=== PATIENT | female | born 1965 | race Caucasian/White ===

== ENCOUNTER 2017-09-04 17:51 | Emergency (ER) | payer MEDICARE, MEDICAID ==
[~2017-09-04] VITALS: Ht 175.3 cm; Wt 63.6 kg
[~2017-09-04 17:51] MED LIST: EYE15DRO EACHEYE; LOTE5DRO4 EACHEYE
[2017-09-04] MEDS ORDERED: normal saline 1000ML IV soln IVB ONE (19:50)
[2017-09-04 20:12] LABS: BASOPHILS % (AUTO) 0.7 % (0-1); EOSINOPHILS # (AUTO) 0.4 X10'3 (0-0.9); EOSINOPHILS % (AUTO) 6.2 % (0-6); HEMATOCRIT 34.8 % (35.0-45.0); HEMOGLOBIN 11.7 g/dl (12.0-16.0); LYMPHOCYTES # (AUTO) 1.9 X10'3 (1.1-4.8); LYMPHOCYTES % (AUTO) 33.2 % (21-51); MEAN CORPUSCULAR HEMOGLOBIN 30.3 PG (27.0-31.0); MEAN CORPUSCULAR HGB CONC 33.6 % (33.0-36.5); MEAN CORPUSCULAR VOLUME 90.4 FL (78-98); MEAN PLATELET VOLUME 9.1 FL (7.4-10.4); MONOCYTES # (AUTO) 0.4 X10'3 (0-0.9); MONOCYTES % (AUTO) 6.5 % (2-12); NEUTROPHILS # (AUTO) 3.1 X10'3 (1.8-7.7); NEUTROPHILS % (AUTO) 53.4 % (42-75); PLATELET COUNT 294 X10'3 (140-440); RED BLOOD COUNT 3.84 X10'6 (4.20-5.60); RED CELL DISTRIBUTION WIDTH 13.4 % (11.5-14.5); WHITE BLOOD COUNT 5.8 X10'3 (4.5-11.0)
[2017-09-04 20:25] LABS: ALANINE AMINOTRANSFERASE 60 U/L (12-78); ALBUMIN/GLOBULIN RATIO 0.9 (1.1-1.5); ALKALINE PHOSPHATASE 87 IU/L (46-116); ANION GAP 6 (8-16); ASPARTATE AMINO TRANSFERASE 60 U/L (10-37); BILIRUBIN,TOTAL 0.2 MG/DL (0.1-1.0); BLOOD UREA NITROGEN 14 MG/DL (7-18); BUN/CREATININE RATIO 17.1 (6.6-38.0); CHLORIDE 108 MMOL/L (99-107); CREATININE 0.82 MG/DL (0.40-0.90); GLUCOSE 104 MG/DL (70-104); LIPASE 56 U/L (73-393); POTASSIUM 4.1 MMOL/L (3.5-5.1); SODIUM 144 MMOL/L (135-145); TOTAL CARBON DIOXIDE 30.4 MMOL/L (24-32); TOTAL PROTEIN 6.3 G/DL (6.4-8.2); eGFR 73 ML/MIN
[2017-09-04 20:35] LABS: CLARITY,URINE CLOUDY (Clear); COLOR,URINE YELLOW (Yellow); GLUCOSE, URINE NEGATIVE (Neg); KETONES,URINE NEGATIVE (Neg); LEUKOCYTE ESTERASE ,URINE LARGE (Neg); NITRITES, URINE POSITIVE (Neg); OCCULT BLOOD,URINE SMALL (Neg); PROTEIN,URINE NEGATIVE (Neg)
[2017-09-04 20:38] LABS: UA COLLECTION TYPE CLN CATCH MIDSTREAM
[2017-09-04 20:44] LABS: SQUAMOUS EPITHELIAL CELL,UR MANY /LPF (FEW)
[2017-09-04 20:46] LABS: BACTERIA,URINE 2+ /HPF (Neg); RBC,URINE 0-2 /HPF (0-2)
[2017-09-04] MEDS ORDERED: BISA10SU60 RC (21:57)
[2017-09-04] MEDS ORDERED: DOCU-28 PO (21:57)
[2017-09-04] MEDS ORDERED: MAGN296S50 PO (21:57)
[2017-09-04 23:58] LABS: CLARITY,URINE Clear (Clear); COLOR,URINE Dark Yellow (Yellow); GLUCOSE, URINE Negative (Neg); KETONES,URINE Negative (Neg); LEUKOCYTE ESTERASE ,URINE Negative (Neg); NITRITES, URINE Negative (Neg); OCCULT BLOOD,URINE Negative (Neg); PROTEIN,URINE Negative (Neg)
[2017-09-04] MEDS ORDERED: MUPI1OIN5 TOP (23:59)
[2017-09-05 00:07] LABS: UA COLLECTION TYPE FOLEY CATH
[2017-09-05 00:21] VITALS: BP 113/83
== END 2017-09-05 00:23 | disposition home or self-care (01) ==
LOC: ER 17:52
DX: N39.0 Urinary tract infection, site not specified (principal); F32.9 Major depressive disorder, single episode, unspecified; K59.00 Constipation, unspecified
CPT/HCPCS: 36415; 51702; 74176; 80053; 81001; 81003; 83690; 85025; 99285; A4315; J7030

== ENCOUNTER 2017-09-06 09:48 | Emergency (ER) | payer MEDICARE, MEDICAID ==
[~2017-09-06] VITALS: Ht 175.3 cm; Wt 63.0 kg
[~2017-09-06 09:48] MED LIST changes: +BISA10SU60 RC; +DOCU-28 PO; +MAGN296S50 PO; +MUPI1OIN5 TOP
[2017-09-06 12:38] LABS: CLARITY,URINE CLEAR (Clear); COLOR,URINE YELLOW (Yellow); GLUCOSE, URINE NEGATIVE (Neg); KETONES,URINE NEGATIVE (Neg); LEUKOCYTE ESTERASE ,URINE NEGATIVE (Neg); NITRITES, URINE NEGATIVE (Neg); OCCULT BLOOD,URINE MODERATE (Neg); PROTEIN,URINE NEGATIVE (Neg); UROBILINOGEN,URINE 0.2 E.U/dL (0.2-1.0)
[2017-09-06 12:46] LABS: UA COLLECTION TYPE FOLEY CATH
[2017-09-06 12:50] LABS: RBC,URINE 20-50 /HPF (0-2); WBC,URINE 0-4 /HPF (0-4)
[2017-09-06 12:51] LABS: BACTERIA,URINE NONE SEEN /HPF (Neg); SQUAMOUS EPITHELIAL CELL,UR NONE SEEN /LPF (FEW)
[2017-09-06 13:36] VITALS: BP 109/74
== END 2017-09-06 13:37 | disposition home or self-care (01) ==
LOC: ER 09:49
DX: R31.9 Hematuria, unspecified (principal); G89.29 Other chronic pain; Z79.899 Other long term (current) drug therapy; Z88.5 Allergy status to narcotic agent; Z88.0 Allergy status to penicillin
CPT/HCPCS: 81001; 99284; A6449

== ENCOUNTER 2017-10-11 06:55 | Emergency (ER) | payer MEDICARE, MEDICAID ==
[~2017-10-11] VITALS: Ht 175.3 cm; Wt 52.7 kg
[2017-10-11 09:39] VITALS: BP 96/65
== END 2017-10-11 09:41 | disposition home or self-care (01) ==
LOC: ER 06:56
DX: S90.812A Abrasion, left foot, initial encounter (principal); L98.499 Non-pressure chronic ulcer of skin of other sites with unspecified severity; G89.29 Other chronic pain; Z88.5 Allergy status to narcotic agent; X58.XXXA Exposure to other specified factors, initial encounter; Y93.89 Activity, other specified; Y92.89 Other specified places as the place of occurrence of the external cause; Y99.8 Other external cause status
CPT/HCPCS: 99281

== ENCOUNTER 2018-09-11 10:53 | Emergency (ER) | payer MEDICARE, MEDICAID ==
[~2018-09-11] VITALS: Ht 177.8 cm; Wt 61.8 kg
[2018-09-11 12:55] LABS: BASOPHILS % (AUTO) 0.5 % (0-1); EOSINOPHILS # (AUTO) 0.2 X10'3 (0-0.9); EOSINOPHILS % (AUTO) 2.8 % (0-6); HEMATOCRIT 39.7 % (35.0-45.0); HEMOGLOBIN 13.3 g/dl (12.0-16.0); LYMPHOCYTES # (AUTO) 1.9 X10'3 (1.1-4.8); LYMPHOCYTES % (AUTO) 30.5 % (21-51); MEAN CORPUSCULAR HEMOGLOBIN 29.9 PG (27.0-31.0); MEAN CORPUSCULAR HGB CONC 33.4 g/dL (33.0-36.5); MEAN CORPUSCULAR VOLUME 89.5 FL (78-98); MEAN PLATELET VOLUME 9.7 FL (7.4-10.4); MONOCYTES # (AUTO) 0.2 X10'3 (0-0.9); MONOCYTES % (AUTO) 3.8 % (2-12); NEUTROPHILS # (AUTO) 3.8 X10'3 (1.8-7.7); NEUTROPHILS % (AUTO) 62.4 % (42-75); PLATELET COUNT 294 X10'3 (140-440); RED BLOOD COUNT 4.44 X10'6 (4.20-5.60); RED CELL DISTRIBUTION WIDTH 14.7 % (11.5-14.5); WHITE BLOOD COUNT 6.1 X10'3 (4.5-11.0)
[2018-09-11 13:20] LABS: ALANINE AMINOTRANSFERASE 36 U/L (12-78); ALBUMIN 3.7 G/DL (3.4-5.0); ALBUMIN/GLOBULIN RATIO 1.1 (1.1-1.5); ALKALINE PHOSPHATASE 59 IU/L (46-116); ANION GAP 7 (8-16); ASPARTATE AMINO TRANSFERASE 23 U/L (10-37); BILIRUBIN,TOTAL 0.5 MG/DL (0.1-1.0); BLOOD UREA NITROGEN 25 MG/DL (7-18); BUN/CREATININE RATIO 30.1 (6.6-38.0); CHLORIDE 105 MMOL/L (99-107); CREATININE 0.83 MG/DL (0.40-0.90); GLUCOSE 92 MG/DL (70-104); POTASSIUM 4.4 MMOL/L (3.5-5.1); SODIUM 141 MMOL/L (135-145); TOTAL CARBON DIOXIDE 28.7 MMOL/L (24-32); TOTAL PROTEIN 7.1 G/DL (6.4-8.2); eGFR 72 ML/MIN
[2018-09-11 13:25] LABS: ETHANOL < 0.010 GM/DL (0.0-0.010)
[2018-09-11 14:21] LABS: URINE HCG NEGATIVE (NEG)
[2018-09-11 14:28] LABS: CLARITY,URINE CLEAR (Clear); COLOR,URINE YELLOW (Yellow); GLUCOSE, URINE NEGATIVE (Neg); KETONES,URINE TRACE mg/dl (Neg); LEUKOCYTE ESTERASE ,URINE NEGATIVE (Neg); NITRITES, URINE NEGATIVE (Neg); OCCULT BLOOD,URINE NEGATIVE (Neg); PROTEIN,URINE NEGATIVE (Neg); UROBILINOGEN,URINE 0.2 E.U/dL (0.2-1.0)
[2018-09-11 14:33] LABS: URINE AMPHETAMINE SCREEN NEGATIVE (Neg); URINE BARBITUATE SCREEN NEGATIVE (Neg); URINE BENZODIAZEPINES SCREEN POSITIVE (Neg); URINE CANNABINOID SCREEN NEGATIVE (Neg); URINE COCAINE SCREEN NEGATIVE (Neg); URINE METHADONE SCREEN NEGATIVE (Neg); URINE OPIATE SCREEN NEGATIVE (Neg); URINE PHENCYCLIDINE SCREEN NEGATIVE (Neg)
[2018-09-11 14:38] LABS: UA COLLECTION TYPE CLN CATCH MIDSTREAM
[2018-09-11] MEDS ORDERED: CYCL-1 PO (15:08)
[2018-09-11] MEDS ORDERED: PREG200C PO (15:08)
[2018-09-11] MEDS ORDERED: TRAZ-219 PO (15:08)
[2018-09-11] MEDS ORDERED: DULR RC (15:08)
[2018-09-11] MEDS ORDERED: LEVO75TA PO (15:08)
[2018-09-11] MEDS ORDERED: NALO25TA PO (15:08)
[2018-09-11] MEDS ORDERED: LORA-512 PO (15:08)
[2018-09-11] MEDS ORDERED: CLON-527 PO (15:08)
[2018-09-11] MEDS ORDERED: ATOM80CA3 PO (15:08)
[2018-09-11] MEDS ORDERED: SENN25TA10 PO (15:08)
[2018-09-11] MEDS ORDERED: DICL75TA6 PO (15:08)
[2018-09-11] MEDS ORDERED: NORT50CA PO (15:08)
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
[2018-09-11] MEDS ORDERED: CLON2TAB10 PO (15:19)
[2018-09-11] MEDS ORDERED: BUPR900F3 PO (15:19)
[2018-09-11] MEDS ORDERED: SENNOSIDES PO PRN (16:05)
[2018-09-11] MEDS ORDERED: cyclobenzaprine 10mg tablet PO PRN (16:05)
[2018-09-11] MEDS ORDERED: bisacodyl 10mg suppository rectal RC PRN (16:05)
[2018-09-11] MEDS ORDERED: TRAZODONE HCL PO PRN (16:05)
[2018-09-11] MEDS ORDERED: non-formulary drug (Clonazepam 1 TAB) PO PRN (16:05)
[2018-09-11] MEDS ORDERED: traZODone 50mg tablet PO PRN (16:40)
[2018-09-11] MEDS ORDERED: clonazePAM 1mg tablet PO PRN (16:45)
[2018-09-11] MEDS ORDERED: sennosides 8.6mg tablet PO PRN (16:45)
--- NOTE | 2018-09-11 17:40 | NUR ---
Patient is calm with significant other, Trey, at her side. Patient c/o pain to her head and she believes this is because she usually takes her pain med in the morning then at 1600. Continue to monitor.
--- NOTE | 2018-09-11 19:00 | NUR ---
Pt. in bed participating in Telepsych at this time, calm and cooperative. Significant other at bedside.
--- NOTE | 2018-09-11 19:30 | NUR ---
Pt's significant other is Medical POA: Trey Reynolds [phone]
[2018-09-11] MEDS ORDERED: non-formulary drug (Diclofenac Sodium 1 TAB) PO SCH (20:00)
[2018-09-11] MEDS ORDERED: non-formulary drug (Pregabalin (Lyrica) 1 CAP) PO SCH (20:00)
[2018-09-11] MEDS: BUPRENORPHINE PO SCH (20:00)
[2018-09-11] MEDS ORDERED: BUPRENORPHINE HCL PO SCH (20:00)
--- NOTE | 2018-09-11 20:31 | NUR ---
Packet sent to [facility].
[2018-09-11] MEDS ORDERED: non-formulary drug (Trazodone HCl 3 TAB) PO SCH (21:00)
[2018-09-11] MEDS ORDERED: nortriptyline 25mg capsule PO SCH (21:00)
[2018-09-11] MEDS ORDERED: traZODone 150mg tablet PO SCH (21:00)
--- NOTE | 2018-09-11 21:00 | NUR ---
Pt. reports depression and anxiety and states she feels like she would hurt herself if at home, however she is feeling safe here and she denies S/I plan at this time. Pt. also reports she was a previous patient of Dr. Bazan and had been stable on her medications X10 years, however her care was then transferred to Dr. Tubbs and medications were changed and she become unstable. Pt's therapist Megha Coy at [facility] ([phone]) had recently recommended [facility] to her. [facility] charge nurse alerted of this and pt. voices contentment. Resting comfortably at this time, rr even and unlabored.
--- NOTE | 2018-09-11 21:00 | NUR ---
Telepsych competed and presented to Dr. Nguyen. Telepsych reccommends pt. be placed on a 5150 inpatient hold, also obtain a serum Nortryptaline Level. Per Dr. Nguyen, we will not obtain a Nortryptaline Level at this time and we will wait for placement.
[2018-09-11] MEDS: pregabalin 25mg capsule PO SCH (21:18)
--- NOTE | 2018-09-11 21:30 | NUR ---
Per PharmacistLuke, patients medication Belbuca is unavailable at [facility]. Pt. will need to have brought in from home, she voices understanding.
--- NOTE | 2018-09-11 23:00 | NUR ---
Pt. laying on her back sleeping, HOB raised, rr even and unlaobored
--- NOTE | 2018-09-12 01:00 | NUR ---
Pt. continues to sleep, laying on rt. side at this time.
--- NOTE | 2018-09-12 01:05 | NUR ---
Pt. up to use the BR, walks without cane independently without difficulty. Cane taken from bedside per safety precautions, baged and labeled with pt. name for safekeeping, and stored with pt. belongings.
--- NOTE | 2018-09-12 03:31 | NUR ---
Pt. sleeping on her back, knees elevated, rr even and unlabored
--- NOTE | 2018-09-12 04:02 | NUR ---
Home Medications:Atomoxetine, Naloxegol Oxalate, and Buprenorphine unavailable per [facility]. Will endorse to AM shift to see if pt's significant other can pickling tank operator from [facility] and bring to hospital.
--- NOTE | 2018-09-12 05:00 | NUR ---
Pt. remains asleep, laying on left side, appears to be resting comfortably
[2018-09-12 05:30] VITALS: BP 95/55
[2018-09-12] MEDS ORDERED: MOVANTIK 25 MG PO SCH (08:00)
[2018-09-12] MEDS ORDERED: ATOMOXETINE HCL 80 MG PO SCH (08:00)
[2018-09-12] MEDS ORDERED: non-formulary drug (Naloxegol Oxalate (Movantik) 1 TAB) PO SCH (08:00)
[2018-09-12] MEDS ORDERED: ATOMOXETINE HCL PO SCH (08:00)
[2018-09-12] MEDS ORDERED: levoTHYROXINE 75mcg tablet PO SCH (08:00)
[2018-09-12] MEDS ORDERED: loratadine 10mg tablet PO SCH (08:00)
[2018-09-12] MEDS ORDERED: non-formulary drug (Loratadine* (Alavert*) 1 TAB) PO SCH (08:00)
[2018-09-12] MEDS: pregabalin 25mg capsule PO SCH (08:01)
--- NOTE | 2018-09-12 08:38 | NUR ---
patient's came in to vist patient. He states he will look in the truck to see if he has the atomoxetine and naloxegol. He states that she has not started her belbuca due to it not being available at the pharmacy. He has also meghana in her advance directive and POA. Copies will be made and placed in the chart.
--- NOTE | 2018-09-12 09:25 | NUR ---
Bharti from [facility] is evaluating patient at bedside
--- NOTE | 2018-09-12 10:35 | NUR ---
Patient stating she has been unable to urinate. RN performed a bladder scan. RN received verbal order from Dr Choi for Aldrich Catheter. RN inserted 16 Fr with initial of 1500 mls out. Patient getting relief. Continue to monitor
--- NOTE | 2018-09-12 12:35 | NUR ---
Patient is sleeping supine, no distress observed. Continue to monitor.
[2018-09-12] MEDS: BUPRENORPHINE PO SCH (13:14)
--- NOTE | 2018-09-12 16:13 | NUR ---
Patient awake, alert, no distress observed. Patient's significant other at bedside (Trey). Continue to monitor.
[2018-09-12 17:41] LABS: CLARITY,URINE CLEAR (Clear); COLOR,URINE YELLOW (Yellow); GLUCOSE, URINE NEGATIVE (Neg); KETONES,URINE NEGATIVE (Neg); LEUKOCYTE ESTERASE ,URINE SMALL (Neg); NITRITES, URINE NEGATIVE (Neg); OCCULT BLOOD,URINE LARGE (Neg); PROTEIN,URINE 30 mg/dl (Neg)
[2018-09-12 17:42] LABS: UA COLLECTION TYPE CLN CATCH MIDSTREAM
[2018-09-12 17:46] LABS: BACTERIA,URINE FEW /HPF (Neg); MUCUS STRANDS FEW /LPF (Neg); RBC,URINE 20-50 /HPF (0-2); SQUAMOUS EPITHELIAL CELL,UR FEW /LPF (FEW)
[2018-09-12] MEDS ORDERED: DOXYCYCLINE 100MG CAPSULE PO SCH (20:00)
[2018-09-13] MEDS ORDERED: doxycycline PO (11:14)
[2018-09-13] MEDS ORDERED: CRIS60OI TOP (11:14)
== END 2018-09-12 17:40 | disposition home or self-care (01) ==
LOC: ER 10:53
DX: R45.851 Suicidal ideations (principal); F32.9 Major depressive disorder, single episode, unspecified; G89.29 Other chronic pain; Z88.5 Allergy status to narcotic agent; Z88.6 Allergy status to analgesic agent; Z79.899 Other long term (current) drug therapy
CPT/HCPCS: 36415; 80053; 80305; 80320; 81001; 81003; 81025; 84443; 85025; 87088; 99285

== ENCOUNTER 2018-09-12 16:20 | Inpatient (IN) | payer MEDICARE, MEDICAID ==
[~2018-09-12] VITALS: Ht 177.8 cm; Wt 63.5 kg
[~2018-09-12 16:20] MED LIST changes: +ATOM80CA3 PO; -BISA10SU60 RC; +BUPR900F3 PO; +CLON2TAB10 PO; +CYCL-1 PO; +DICL75TA6 PO; -DOCU-28 PO; +DULR RC; -EYE15DRO EACHEYE; +LEVO75TA PO; +LORA-512 PO; -LOTE5DRO4 EACHEYE; -MAGN296S50 PO; -MUPI1OIN5 TOP; +NALO25TA PO; +NORT50CA PO; +PREG200C PO; +SENN25TA10 PO; +TRAZ-219 PO
--- NOTE | 2018-09-12 18:02 | NUR ---
Admit note: Pt admitted by Dr Helms for depression and SI at 1750. Pt depressed about her mother suicide 3.5 years and her father last year. Pt has a home with her . Pts inventory completed in overflow. Pt has history of chronic back pain, stimulator in her back, hypothyroid,depression, constipation, insomnia. Pt oriented to the unit. Pt has mcmahon inserted due to urine retention. Pts given the visiting hours and will visit tomorrow.
[2018-09-12] MEDS ORDERED: acetaminophen 325mg tablet PO PRN (18:15)
[2018-09-12] MEDS ORDERED: magnesium hydroxide 30ml (MOM) UD suspension PO PRN (18:15)
[2018-09-12] MEDS ORDERED: mag hydrox/Alum hydrox/simeth 30ml oral suspension PO PRN (18:15)
[2018-09-12] MEDS ORDERED: tuberculin, purif. prot. deriv. 5 units/0.1ml ID ONE (18:15)
[2018-09-12 20:10] VITALS: BP 119/56
[2018-09-12] MEDS ORDERED: traZODone 50mg tablet PO PRN (20:20)
[2018-09-12] MEDS ORDERED: bisacodyl 10mg suppository rectal RC PRN (20:25)
[2018-09-12] MEDS ORDERED: clonazePAM 1mg tablet PO PRN (20:30)
[2018-09-12] MEDS ORDERED: nortriptyline 25mg capsule PO SCH (21:00)
[2018-09-12] MEDS ORDERED: pregabalin 75mg capsule PO SCH ×2 (21:00→21:52)
[2018-09-12] MEDS: buprenorphine/naloxone 8mg/2mg SL tablet SL SCH (21:45)
[2018-09-12] MEDS: traZODone 150mg tablet PO SCH (21:46)
--- NOTE | 2018-09-12 22:32 | NUR ---
SHADING PAINTER NOTE: LEGAL HOLD: 5150 for DTS. Report received from nurse with use of SBAR: New admit. Diagnosis/presenting symptoms: Suicidal Ideation/Long hx depression and previous ECT/Multiple inpatient psych admits. ASSESSMENT: What has happened this shift: Client admitted at beginning of shift, from the ED, for SI. Client reports that she first became depressed at age 10 yo but does not remember what triggered those feelings. Reports that she was first admitted for mental health treatment as a teenager. Client has had multiple inpatient psych admits for depression and SI. Reports prior ECT. Client was tearful and gave rambling answers to questions. Reports hx of catatonia/psychosis. Clients mother committed suicide 3.5 years ago. Father recently from CAD. S/I, H/I: SI w/ no plan. A/VH: Reports, "I see music and taste sound." Sleep: Difficulty falling asleep. ADL's: Independent Group attendance: N/A Were meds taken: Med compliant. Any med S/E: None reported. MENTAL STATUS EXAM: Appearance: Client wear a hat and coat in bed. Stated, "I'm cold." Temp in room was increased. Eye contact: Direct. Behavior: Tearful. Speech: Slurred, halting, low volume. Mood: Depressed. Affect: Depressed. Thought process: Circumstantiality. Gives long, rambling answers with frequent detours. Insight: Poor. Judgment: Poor. INTERVENTIONS: PRN's used: N/A Therapeutic interventions: 1:1 support. Restraints/seclusion/emergency medication: N/A. Justification of Continued Inpatient Treatment: Client is depressed and feels that she needs a medication adjustment.
[2018-09-12] MEDS: pregabalin 25mg capsule PO SCH (22:39)
[2018-09-13] MEDS: levoTHYROXINE 75mcg tablet PO SCH (07:36)
[2018-09-13 07:47] VITALS: BP 127/55
[2018-09-13 07:49] LABS: CHOL/HDL RATIO 2.9 (0.00-4.99); CHOLESTEROL 203 MG/DL (0-200); HDL CHOLESTEROL 71 MG/DL (35-60); LDL CHOLESTEROL 112 MG/DL (50-100); TRIGLYCERIDES 92 MG/DL (20-135)
[2018-09-13] MEDS: BELBUCA PO SCH ×2 (08:00→20:00)
[2018-09-13] MEDS: pregabalin 25mg capsule PO SCH (08:00)
[2018-09-13] MEDS: loratadine 10mg tablet PO SCH (08:29)
[2018-09-13] MEDS: buprenorphine/naloxone 8mg/2mg SL tablet SL SCH ×2 (08:29→20:41)
[2018-09-13] MEDS: ATOMOXETINE 80 MG PO SCH (08:56)
[2018-09-13] MEDS: MOVANTIK 25 MG PO SCH (08:57)
[2018-09-13] MEDS: cyclobenzaprine 10mg tablet PO PRN (09:14)
[2018-09-13] MEDS ORDERED: pneumococcal 23-VAL P-sac vacc 25 mcg/0.5ml vial IMVAC ONE (10:00)
[2018-09-13] MEDS ORDERED: FLU VACC QUAD 2018(5 YR UP)/PF 60 MCG/0.5 ML SYRINGE IM ONE (10:00)
[2018-09-13] MEDS ORDERED: CRIS60OI TOP (11:14)
[2018-09-13] MEDS ORDERED: doxycycline PO (11:14)
[2018-09-13] MEDS: CRISABOROLE TOP SCH ×2 (12:39→20:41)
[2018-09-13] MEDS: sennosides 8.6mg tablet PO PRN (12:42)
[2018-09-13] MEDS: DOXYCYCLINE 100MG CAPSULE PO SCH ×3 (14:32→20:49)
[2018-09-13] MEDS: acetaminophen 325mg tablet PO PRN (15:31)
--- NOTE | 2018-09-13 17:54 | NUR ---
RN PROGRESS NOTE: LAUREN LEGAL HOLD: 5150 for DTS. Report received from nurse with use of SBAR: New admit. Diagnosis/presenting symptoms: Suicidal Ideation/Long hx depression and previous ECT/Multiple inpatient psych admits. ASSESSMENT: What has happened this shift: Pt. Seen in day room at beginning of shift. Pt.s Elinor VELAZCOd. Pt. Reports residual soreness from catheter. Pt. Urinated at 10am. Suboxone is substitute for her Belbuca. Was taking very high dose of it, 900mg BID Pt. Has been off of Belbuca for 6 days. Doesnt test postive for opiates. Have to test specificially for it. Pt. Recieved Flexaril 10mg for back spasms @ 0900. Pt. Recieved Senkot 25.8 for Constipation. No BM since 09/11. Pt.s lyrica changed to only HS. Trey doesnt want her to call him , but omar. Live together. Met 5 years ago. Flu and pneumonia vaccination administered. Ear ointment Eucrisa started and applied. Bela emptied her bladder 1pm. Given Tylenol 650 mg for head ache. Pt. Reports she still has a bad headache 02/04. Doxycycline not given per pharmacy order because medication wasnt given until today at 1pm. Lyrica got changed and [employer] wants to remind you every time you open EMAR Pt. States, Jessica been so depressed and my meds arent working and Im tired of being confused. Im a risk to myself. I was vaping a lot and I quit because Trey asked me to. I was doing it in the house. The nicotine is relaxing. It take care of the anxiety. That was just recently. Jessica been depressed for a long time. The last couple years. I didnt realize it until Trey told me I hadnt left the house. Im suicidal. My sister drank herself to . Mom always told me that weak people kill themselves, and then she killed herself and that opened a door to me that wasnt previously an option. Mom killed herself 3.5 years ago My plan to commit suicide is to take [place] and [place] my [place]s and fall asleep and . Pt.reports she thinks she is on the Autism spectrum. Pt. Reports managing her pain by taking breaks and exercise. Reports hx of catatonia/psychosis. Father recently from CAD in the last 3 years. Pt. Reports her father had a trust fund for her that he put her brother in charge of and her Trey helped her sidra. S/I, H/I: SI w/ no plan. A/VH: Reports, "I see music and taste sound." Sleep: Difficulty falling asleep. ADL's: Independent Group attendance: N/A Were meds taken: Med compliant. Any med S/E: None reported. MENTAL STATUS EXAM: Appearance: Pt. Presents clean and neatly dressed. Eye contact: Direct. Behavior: Tearful at times Speech: slow Mood: Depressed. Affect: Depressed. Thought process: Tangential. Gives long, rambling answers with frequent detours. Insight: Poor. Judgment: Poor. INTERVENTIONS: PRN's used: Flexeril 10mg for back spasms. Senekot 25.8mg for constipation Tylenol 650mg prn for pain Therapeutic interventions: Administered vaccinations and PRN medications, 1:1 active listening and therapeutic communication; maintained a safe and therapeutic environment, encouraged ADLs, reinforced reality as needed, education regarding medication, maintained q 15 min safety checks. Restraints/seclusion/emergency medication: N/A. Justification of Continued Inpatient Treatment: Client has SI with a plan.
[2018-09-13 20:00] VITALS: BP 96/38
[2018-09-13] MEDS: traZODone 150mg tablet PO SCH (20:41)
[2018-09-13] MEDS ORDERED: pregabalin 25mg capsule PO SCH (21:00)
[2018-09-13] MEDS ORDERED: pregabalin 75mg capsule PO SCH (21:00)
[2018-09-13] MEDS ORDERED: nortriptyline 25mg capsule PO SCH (21:00)
--- NOTE | 2018-09-14 04:08 | NUR ---
RN PROGRESS NOTE: LEGAL HOLD: 5150. Involuntary status for DTS. Report received from nurse with use of SBAR: Ahsan ABRLOW. Why are they here: The patient comes to [facility] with increasing thoughts of suicide. She reports many years of treatments with no good response. She states that she feels like a burden to her , and feels that she is incurable, leading to guilt and thoughts of dying. She realizes that she's been isolating herself. She reports that her sister drank herself to and her mother suicided 3.5 years ago. Diagnosis/presenting symptoms: Depression with SI, multiple inpatient episodes. isolation, worthlessness, hopelessness, anhedonia, anxiety. ASSESSMENT: What has happened this shift: The patient was first encountered in the group room. She agreed to 1:1 in her room at bedside. The patient reports that she should be happy, "I have a man who loves me, I have a home, we have enough money. I just can't find happiness, everything is right. but me. Trey is my sweety, he helped put myself back on track. My trust has been broken so many times, and he helped me, I need to get better." The patient states that she loves physical activity, but she's unable, due to her back. She says the Aldrich Catheter came out today and she's urinating fine without it. The patient is fairly anxious with all the med changes happening, "it needs to happen because they aren't working" The patient laid in bed reading until HS med pass, then went to sleep. She continues to endorse SI, with a plan to overdose. S/I, H/I: SI w/ plan to OD. A/VH: Reports that she can feel electricity and taste colors Sleep: Good, but has difficulty falling asleep. ADL's: Independent Group attendance: No groups at night. Were meds taken: Med compliant. Any med S/E: None reported. MENTAL STATUS EXAM: Appearance: WNL. Presents clean and neatly dressed. Eye contact: Direct. Behavior: Tearful at times Speech: Slowed. Mood: Depressed. Affect: Restricted. Thought process: Logical, goal oriented. Thought content: Focused on med changes and getting better. Cognition: A/O. Insight: Poor. Judgment: Poor. INTERVENTIONS: PRN's used: Klonipin for anxiety with good relief. Therapeutic interventions: Administered medications, 1:1 active listening and therapeutic communication; maintained a safe and therapeutic environment, encouraged ADLs, reinforced reality as needed, education regarding medication, maintained q 15 min safety checks. Restraints/seclusion/emergency medication: N/A. Justification of Continued Inpatient Treatment: Client continues to endorse SI with a plan.
[2018-09-14] MEDS: levoTHYROXINE 75mcg tablet PO SCH (06:57)
[2018-09-14 07:34] VITALS: BP 88/63
[2018-09-14] MEDS: buprenorphine/naloxone 8mg/2mg SL tablet SL SCH ×2 (07:51→20:33)
[2018-09-14] MEDS: loratadine 10mg tablet PO SCH (07:52)
[2018-09-14] MEDS: sennosides 8.6mg tablet PO PRN (07:53)
[2018-09-14] MEDS: ATOMOXETINE 80 MG PO SCH (07:54)
[2018-09-14] MEDS: MOVANTIK 25 MG PO SCH (07:55)
[2018-09-14] MEDS: BELBUCA PO SCH ×2 (07:57→20:00)
[2018-09-14] MEDS: CRISABOROLE TOP SCH ×2 (07:59→20:33)
[2018-09-14] MEDS: DOXYCYCLINE 100MG CAPSULE PO SCH ×3 (08:53→17:42)
[2018-09-14] MEDS: triamcinolone acet 0.1% cream 15gm TP SCH ×2 (09:50→20:33)
[2018-09-14] MEDS: acetaminophen 325mg tablet PO PRN (13:45)
--- NOTE | 2018-09-14 17:31 | NUR ---
RN PROGRESS NOTE: LAUREN LEGAL HOLD: 5150 for DTS. Report received from nurse with use of SBAR from YEN Romo. Diagnosis/presenting symptoms: Suicidal Ideation/Long hx depression and previous ECT/Multiple inpatient psych admits. ASSESSMENT: What has happened this shift: Pt. up and in day room at beginning of shift. Pt. very talkative, going into her history. Pt. reports she first got her back stimulator implanted in 2015, but that there was issues with it and needed it replanted in February 2018. Pt. states, "I'm much better today. I slept. I don't have the pressured speach. I'm relaxed." Pt. took AM meds along with PRN Senekot for constipation. RN went through medications with pt. and did education. When RN explained to pt. that her Klonopin is ordered only as needed and not scheduled and informed the pt. that she recieved no klonopin yesterday pt. became visibly upset and her speech became noticibly slowed and slurred . saying, "My Klonopin, I need my klonopin. I need my seroquil. I need to see Dr. Gil. That's why I'm here, I came here because I needed to get my medication right. I am now picking my fingers and my boots because of anxiety. I'm hearing voices, it sounds like a nurse knocking on my door saying 'procedure #1, Procedure #3 Marine, etc". RN offerred pt. @ 1000 PRN Klonopin 2mg po which pt. accepted. Pt. then had visitor, her boyfriend which she said was a good visit, then she went to sleep for 1 hour. Pt. then met with JENNIFER Dietrich. Pt.'s Lyrica, Nortryptaline, and Movantic discontinued. PRN Klonopin reduced to 1mg BID. Pt. recieved Tylenol 650mg @ 1411 for back and head pain 12/05. Pt. reports that pain unchaged. Pt. started on Kenelog cream 0.1% for her ears. Pt. took nap x2 today S/I, H/I: SI w/ plan to [place] the [place], overdose on her medications, fall asleep and . A/VH: Reports Sleep: Pt. napped during shift today twice. ADL's: Independent Group attendance: N/A Were meds taken: Med compliant. Any med S/E: None reported. MENTAL STATUS EXAM: Appearance: Pt. Presents clean and neatly dressed. Eye contact: Direct. Behavior: Tearful at times Speech: slow and slurred at times. Mood: Depressed. Affect: Depressed. Thought process: Tangential. Gives long, rambling answers with frequent detours. Insight: Poor. Judgment: Poor. INTERVENTIONS: PRN's used: Senekot 28.5mg, Klonopin 2mg, and Tylenol 650mg Therapeutic interventions: Administered vaccinations and PRN medications, 1:1 active listening and therapeutic communication; redirection, maintained a safe and therapeutic environment, encouraged ADLs, reinforced reality as needed, education regarding medication, maintained q 15 min safety checks. Restraints/seclusion/emergency medication: N/A. Justification of Continued Inpatient Treatment: Client has SI with a plan.
[2018-09-14 19:15] VITALS: BP 88/58
[2018-09-14] MEDS: lactobacillus rhamnosus 10,000 MMU CELLS/CAPSULE PO SCH (20:33)
[2018-09-14] MEDS: traZODone 150mg tablet PO SCH (20:34)
[2018-09-14] MEDS: clonazePAM 1mg tablet PO PRN (20:34)
[2018-09-14] MEDS: cyclobenzaprine 10mg tablet PO PRN (20:34)
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
[2018-09-15] MEDS: levoTHYROXINE 75mcg tablet PO SCH (07:09)
[2018-09-15] MEDS: sennosides 8.6mg tablet PO PRN (07:23)
[2018-09-15] MEDS: lactobacillus rhamnosus 10,000 MMU CELLS/CAPSULE PO SCH ×2 (07:24→20:48)
[2018-09-15] MEDS: loratadine 10mg tablet PO SCH (07:24)
[2018-09-15] MEDS: buprenorphine/naloxone 8mg/2mg SL tablet SL SCH (07:25)
[2018-09-15] MEDS: ATOMOXETINE 80 MG PO SCH (07:26)
[2018-09-15 07:30] VITALS: BP 104/60
[2018-09-15] MEDS: DOXYCYCLINE 100MG CAPSULE PO SCH ×2 (07:31→17:48)
[2018-09-15] MEDS: BELBUCA PO SCH ×2 (07:50→18:57)
[2018-09-15] MEDS: clonazePAM 1mg tablet PO PRN (09:05)
[2018-09-15] MEDS: triamcinolone acet 0.1% cream 15gm TP SCH ×2 (09:05→20:47)
[2018-09-15] MEDS: CRISABOROLE TOP SCH ×2 (09:06→20:47)
[2018-09-15] MEDS: acetaminophen 325mg tablet PO PRN (13:01)
[2018-09-15] MEDS ORDERED: clonazePAM 1mg tablet PO ONE (17:25)
[2018-09-15 20:29] VITALS: BP 107/60
[2018-09-15] MEDS: clonazePAM 0.5mg tablet PO SCH (20:48)
[2018-09-15] MEDS: traZODone 50mg tablet PO SCH (20:48)
[2018-09-15] MEDS: quetiapine 100mg tablet PO SCH (20:48)
--- NOTE | 2018-09-16 04:19 | NUR ---
RN PROGRESS NOTE: LEGAL HOLD: Voluntary. Report received from nurse with use of SBAR: Ahsan BARLOW. Why are they here: The patient comes to [facility] with increasing thoughts of suicide. She reports many years of treatments with no good response. She states that she feels like a burden to her , and feels that she is incurable, leading to guilt and thoughts of dying. She realizes that she's been isolating herself. She reports that her sister drank herself to and her mother suicided 3.5 years ago. Diagnosis/presenting symptoms: Depression with SI, multiple inpatient episodes. isolation, worthlessness, hopelessness, anhedonia, anxiety. ASSESSMENT: What has happened this shift: The patient was in her bed reading. She agreed to 1:1 at bedside. The patient understands that she is isolating, "I'm so stressed out and still really confused and don't feel comfortable around people right now." We went over her medication changes and she's more agreeable now that her Belbuca is here and she has started Seroquel and had Trazodone decreased. She spoke of today's group, "we went over the stages of grief and loss, and I found myself in there. I have had so much loss recently. 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 I really need to get better." The patient remained isolated to her room all night. She has been awake since 0300, "I'm not tired, I just can't sleep and I thought I heard people talking about me outside my door." S/I, H/I: Denies. A/VH: Reports that she hears people outside her door talking about her. Sleep: "I slept better than the night before." ADL's: Independent Group attendance: No groups at night. Were meds taken: Med compliant. Any med S/E: None reported. MENTAL STATUS EXAM: Appearance: WNL. Presents clean and neatly dressed. Eye contact: Direct. Behavior: Talkative Speech: Slowed, pressured. Mood: Depressed. Affect: Restricted. Thought process: Logical, goal oriented. Thought content: Focused on med changes and getting better. Cognition: A/O. Insight: Poor. Judgment: Poor. INTERVENTIONS: PRN's used: None. Therapeutic interventions: Administered medications, 1:1 active listening and therapeutic communication; maintained a safe and therapeutic environment, encouraged ADLs, reinforced reality as needed, education regarding medication, maintained q 15 min safety checks. Restraints/seclusion/emergency medication: N/A. Justification of Continued Inpatient Treatment: Client continues to endorse SI with a plan. She would be at risk for self harm or re-admission if discharged now.
[2018-09-16 07:44] VITALS: BP 90/56
[2018-09-16] MEDS: clonazePAM 0.5mg tablet PO SCH ×2 (07:44→20:34)
[2018-09-16] MEDS: lactobacillus rhamnosus 10,000 MMU CELLS/CAPSULE PO SCH ×2 (07:44→20:34)
[2018-09-16] MEDS: levoTHYROXINE 75mcg tablet PO SCH (07:44)
[2018-09-16] MEDS: loratadine 10mg tablet PO SCH (07:44)
[2018-09-16] MEDS: DOXYCYCLINE 100MG CAPSULE PO SCH ×2 (07:48→17:22)
[2018-09-16] MEDS: triamcinolone acet 0.1% cream 15gm TP SCH ×2 (07:48→20:35)
[2018-09-16] MEDS: ATOMOXETINE 80 MG PO SCH (07:48)
[2018-09-16] MEDS: CRISABOROLE TOP SCH ×2 (07:49→20:35)
--- NOTE | 2018-09-16 09:34 | NUR ---
Initial: Pt admit to [facility] for depression. Pt currently on regular diet with documented PO intake 100% meeting nutrient needs. [facility] 09/12, pt just received Dulcolax suppository yesterday and with MoM PRN. No edema or wounds. No nutrition diagnosis at this time. Will continue to follow. Recommendations: 1) Continue regular diet 2) Monitor need for additional bowel care 3) Weekly wt Addendum: 09/16/18 at [address] Amended: Links added.
[2018-09-16] MEDS: BELBUCA PO SCH ×2 (11:06→16:29)
[2018-09-16] MEDS: cyclobenzaprine 10mg tablet PO PRN ×2 (13:36→20:03)
[2018-09-16] MEDS: QUEtiapine 25mg tablet PO PRN (14:16)
--- NOTE | 2018-09-16 17:36 | NUR ---
RN PROGRESS NOTE: LEGAL HOLD: 5150 for DTS. Report received from nurse with use of SBAR: New admit. Diagnosis/presenting symptoms: Suicidal Ideation/Long hx depression and previous ECT/Multiple inpatient psych admits. ASSESSMENT: What has happened this shift: Spoke with patient in the quiet room about her hospitalization. She began by stating "I think it has to do with my mother's suicide and my father's ." When asked if it would be too disturbing to talk about this information, patient stated "No, maybe someone can learn from it." Speaks in a slow, deliberate manner. Offers a wide range of details about her childhood and adult life. Occasionally loses her train of thought and then reminds herself where she began in the conversation. Presents as both self-conscious and attempting to impress staff with her knowledge. "A barbering teacher, not my best subject, decided to have me tested. I was determined to be at grade 18 or more. The following week I received a MENSA card in the mail." Patient has long explanations for all the illnesses and incidents that have occurred. She presents as attached to medications and asks for her various meds apologetically and also with an underlying panic. S/I, H/I: Patient denies SI at this time "Now that I'm here I feel safe." A/VH: Reports, "It's happened in the past but not today." Sleep: Difficulty falling asleep. ADL's: Independent Group attendance: N/A Were meds taken: Med compliant. Any med S/E: None reported. MENTAL STATUS EXAM: Appearance: Pt. Presents clean and neatly dressed. Eye contact: Direct. Behavior: Tearful at times Speech: slow Mood: Depressed. Affect: Depressed. Thought process: Tangential. Gives long, rambling answers with frequent detours. Insight: Poor. Judgment: Poor. INTERVENTIONS: PRN's used: Flexeril 10mg for back spasms. Seroquel 25 mg. for anxiety Therapeutic interventions: PRN medications, 1:1 active listening and therapeutic communication; maintained a safe and therapeutic environment, encouraged ADLs, reinforced reality as needed, education regarding medication, maintained q 15 min safety checks. Restraints/seclusion/emergency medication: N/A. Justification of Continued Inpatient Treatment: Long history of depression w/SI. Patient does not feel safe with herself outside of the hospital at this time.
[2018-09-16] MEDS: traZODone 50mg tablet PO SCH (20:35)
[2018-09-16] MEDS: quetiapine 100mg tablet PO SCH (20:35)
[2018-09-16 20:39] VITALS: BP 110/67
--- NOTE | 2018-09-17 02:56 | NUR ---
Nursing Note: Chief Complaint: Depression Legal hold: Voluntary Client on voluntary DTS Report received from nurse with use of SBAR: Kalyn RN Why are they here: Pt. presents to [facility] on a 5150 for S/I with a plan to overdose on medications. She reports that her mother committed suicide 3.5 years ago and she then began considering it herself and was referred here by her therapist, Megha Fagan. Pt. reports a history of OCD as a child, chronic depression, and anxiety. She also has a history of chronic pain in her back from degenerative disc disease and scoliosis, and had a spinal cord nerve stimulator implanted. Pt. has been experiencing worsening depression, been sleeping excessively, having difficulty with concentration, and so much anxiety she is afraid to leave the house. She has had ECT treatments in the past, and had been stable on her medications X10 years, however now feels that they are no longer working for her. Pt. is in a committed relationship with a man that she met in [employer] Pt. signed voluntary. Diagnosis/presenting symptoms: Pt. continues to report S/I, however does not endorse plan. She also reports paranoia and A/H, states, "They are the voices of others and staff outside my door, but I feel like they are talking about me." Assessment What has happened this shift: Pt. up in Group Room at beginning of the shift and received a visit from her significant other, visit appeared to go well. Pt. reports ongoing back pain, PRN Flexeril administered with effectiveness and she requests HS medications as soon as possible so she can go to bed. Pt. attends HS snack, mood is labile and she becomes irritable as she sees others headed towards the snack table,states, "I never get anything!" This caption writer encouraged pt. to go get her snack right away and she complied, she then returned stating, "Sorry, I get negative, I need to stop that." 1:1 completed at bedside, pt. continues to report S/I, however does not endorse plan. She also reports paranoia and A/H, states, "They are the voices of others and staff outside my door, but I feel like they are talking about me." Pt. presents with good insight and reports to this caption writer that she feels like she gets stuck in her own head and feeling sorry for herself a lot of the time, however she realizes that this is not productive and she tries to remind herself of this and also to focus on helping others. She reports that she recently educated others that she knows about how much her spinal stimulator has helped with her chronic pain, and she felt happy knowing that she had provided them with helpful information. HS Seroquel administered with effectiveness, pt. educated that she is able to have one more dose if needed, she voices understanding. This caption writer assisted pt. to wrap her outer ear cartilage with gauze as desired, in order to keep ordered ointment in place, will endorse to AM shift. S/I, H/I: Reports ongoing S/I with no plan A/VH: Reports paranoia and A/H Sleep: Reports she has been sleeping well ADL's: Independent, pt. presents with minimal weakness r/t chronic pain from scoliosis and degenerative disc disease. Group attendance: Pt. has been attending groups and attended HS snack Were meds taken: Yes Any med S/E: None Mental Status Exam Appearance: Neat and appropriately dressed in warm clothing. Eye contact: Good Behavior: Cooperative, anxious, and fatigued Speech: Slow rate, soft, however pressured and halting Mood: Pleasant with lability Affect: Constricted Thought process: Circumstantial Thought Content: Paranoia, A/H, and preoccupation with negative thoughts and phobias Cognition: A&O X4 Insight: Fair Judgment: Fair Interventions PRN's used: Flexeril X1 Therapeutic interventions: Introduced self and established rapport, provided active listening, maintained a safe and therapeutic environment, ensured pt. contract for safety, provided medication education, encouraged independent preformance of ADLs, assessed for pain and need for intervention, provided clear and simple instructions, oriented to reality as needed, and maintained Q 15 min safety checks. Restraints/seclusion/emergency medication: N/A Justification of Continued Inpatient Treatment: Pt. requires interruption of current crisis, continued medication adjustments, and therapeutic interventions.
[2018-09-17] MEDS: levoTHYROXINE 75mcg tablet PO SCH (07:45)
[2018-09-17] MEDS: triamcinolone acet 0.1% cream 15gm TP SCH ×2 (08:00→20:15)
[2018-09-17] MEDS: CRISABOROLE TOP SCH ×2 (08:00→20:14)
[2018-09-17] MEDS: ATOMOXETINE 80 MG PO SCH (08:49)
[2018-09-17] MEDS: lactobacillus rhamnosus 10,000 MMU CELLS/CAPSULE PO SCH ×2 (08:50→20:14)
[2018-09-17] MEDS: loratadine 10mg tablet PO SCH (08:50)
[2018-09-17] MEDS: BELBUCA PO SCH ×2 (08:50→17:30)
[2018-09-17] MEDS: DOXYCYCLINE 100MG CAPSULE PO SCH ×2 (08:50→17:18)
[2018-09-17] MEDS: clonazePAM 0.5mg tablet PO SCH ×2 (08:50→20:14)
[2018-09-17 10:09] VITALS: BP 90/51
[2018-09-17] MEDS: QUEtiapine 25mg tablet PO PRN (13:52)
--- NOTE | 2018-09-17 16:42 | NUR ---
RN PROGRESS NOTE: Legal Hold: Vol. Report received from Thompson BARLOW with use of SBAR: Diagnosis/presenting symptoms: Suicidal Ideation/Long hx depression and previous ECT/Multiple inpatient psych admits. ASSESSMENT: What has happened this shift: Pt up engaging in milieu throughout the day attended both groups socializing and visiting with others. Pt is compliant with all treatment. S/I, H/I: denies A/VH: denies Sleep: does not sleep during the day ADL's: Independent Group attendance: Y Were meds taken: Med compliant. Any med S/E: None reported or observed. MENTAL STATUS EXAM: Appearance: Pt. Presents clean and neatly dressed. Eye contact: Direct. Behavior: Calm and cooperative w/staff Speech: Low tone; normal rate and rhythm Mood: Improved; smiling and engaging with others on the unit Affect: Linear Thought process: Direct Insight: Fair Judgment: Fair INTERVENTIONS: PRN's used: Therapeutic interventions: 1:1 communication with RN that included active listening with positive feedback, maintained a safe and therapeutic environment, encouraged independent performance of ADLs, and group attendance and participation, provided medication education, monitoring for SEs, and maintained Q 15 min safety checks. Restraints/seclusion/emergency medication: N/A. Justification of Continued Inpatient Treatment: Long history of depression w/SI. Patient does not feel safe with herself outside of the hospital at this time.
[2018-09-17] MEDS ORDERED: QUEtiapine 25mg tablet PO PRN (16:50)
[2018-09-17 20:00] VITALS: BP 112/52
[2018-09-17] MEDS: quetiapine 100mg tablet PO SCH (20:15)
[2018-09-17] MEDS: cyclobenzaprine 10mg tablet PO PRN (20:15)
[2018-09-17] MEDS ORDERED: traZODone 50mg tablet PO SCH (21:00)
--- NOTE | 2018-09-18 01:25 | NUR ---
Nursing Note: Chief Complaint: Depression Legal hold: Voluntary Client on voluntary DTS Report received from nurse with use of SBAR: YEN Lozada Why are they here: Pt. presents to [facility] on a 5150 for S/I with a plan to overdose on medications. She reports that her mother committed suicide 3.5 years ago and she then began considering it herself and was referred here by her therapist, Megha Fagan. Pt. reports a history of OCD as a child, chronic depression, and anxiety. She also has a history of chronic pain in her back from degenerative disc disease and scoliosis, and had a spinal cord nerve stimulator implanted. Pt. has been experiencing worsening depression, been sleeping excessively, having difficulty with concentration, and so much anxiety she is afraid to leave the house. She has had ECT treatments in the past, and had been stable on her medications X10 years, however now feels that they are no longer working for her. Pt. is in a committed relationship with a man that she met in [place]. Pt. signed voluntary. Diagnosis/presenting symptoms: Pt. continues to report S/I with a plan to overdose on medications if she were to return home. She also reports ongoing paranoia and A/H regarding others talking about her. Assessment What has happened this shift: Pt. laying in bed with eyes closed at beginning of the shift, she requests PRN Flexeril and HS medications as soon as possible so she can go to bed. Pt. attends HS snack, mood is labile and again slightly irritable this shift, this time regarding interruptions during 1:1 from her roommate (making requests from staff and mumbling too herself). This pt. glares and states irritably, "She does this all the time." Pt. continues to report ongoing depression, anxiety, and S/I with a plan to overdose on medications if she were to return home. Pt. states, "My mom's suicide opened the door for me to even consider suicide. She used to tell me to never hurt yourself because in the end you would be hurting those you love, and then she went and did that anyway." Pt. also reports ongoing paranoia and A/H regarding others talking about her. HS medications administered, however pt. reports she feels more fatigued, and is unsure if they are helping yet, will endorse to AM shift. However, she states that Seroquel did used to work well to control her anxiety. This communications writer assisted pt. to wrap her outer ear cartilage with gauze as desired, in order to keep ordered ointment in place, pt. appears to be resting comfortably. S/I, H/I: Reports ongoing S/I with plan to OD on medications if she were to return home A/VH: Reports ongoing paranoia and A/H Sleep: Reports she has been sleeping well, however fatigued ADL's: Independent, pt. presents with minimal weakness r/t chronic pain from scoliosis and degenerative disc disease. Group attendance: Pt. has been attending groups Were meds taken: Yes Any med S/E: Reported increase in fatigue, will endorse to AM shift Mental Status Exam Appearance: Neat and appropriately dressed Eye contact: Good Behavior: Cooperative, anxious, and fatigued Speech: Slow rate, soft, less pressured and halting Mood: Pleasant with lability at times Affect: Constricted Thought process: Circumstantial Thought Content: Paranoia, A/H, and preoccupation with negative thoughts and phobias Cognition: A&O X4 Insight: Fair Judgment: Fair Interventions PRN's used: Flexeril X1 Therapeutic interventions:Provided active listening, maintained a safe and therapeutic environment, ensured pt. contract for safety, provided medication education, encouraged independent performance of ADLs, assessed for pain and need for intervention, provided clear and simple instructions, oriented to reality as needed, and maintained Q 15 min safety checks. Restraints/seclusion/emergency medication: N/A Justification of Continued Inpatient Treatment: Pt. requires interruption of current crisis, continued medication adjustments, and therapeutic interventions.
[2018-09-18 07:51] VITALS: BP 105/51
[2018-09-18] MEDS: BELBUCA PO SCH ×2 (08:00→16:08)
[2018-09-18] MEDS: triamcinolone acet 0.1% cream 15gm TP SCH ×2 (08:00→20:07)
[2018-09-18] MEDS: CRISABOROLE TOP SCH ×2 (08:00→20:07)
[2018-09-18] MEDS: loratadine 10mg tablet PO SCH (08:14)
[2018-09-18] MEDS: levoTHYROXINE 75mcg tablet PO SCH (08:14)
[2018-09-18] MEDS: clonazePAM 0.5mg tablet PO SCH ×2 (08:15→20:06)
[2018-09-18] MEDS: lactobacillus rhamnosus 10,000 MMU CELLS/CAPSULE PO SCH ×2 (08:15→20:05)
[2018-09-18] MEDS: ATOMOXETINE 80 MG PO SCH (08:16)
[2018-09-18] MEDS: QUEtiapine 25mg tablet PO SCH ×3 (08:16→16:08)
[2018-09-18] MEDS: DOXYCYCLINE 100MG CAPSULE PO SCH ×2 (09:00→17:13)
[2018-09-18] MEDS: cyclobenzaprine 10mg tablet PO PRN (13:15)
--- NOTE | 2018-09-18 15:07 | NUR ---
1:1 DISCHARGE PLANNING DARYL made TC to pt's assigned therapist, Megha Fagan LCSW, who reports continued concern regarding pt's sx of personality disorder and difficulty accepting boundaries set by clinician. This automobile service writer informed CHARLOTTE Fagan of pt's likelihood to discharge on 09/19/2018. CHARLOTTE Fagan reports agreement regarding discharge and states she will continue to meet with pt during the standing appointment time. She reports she requested hospitalization for pt due to pt's continued and increasing statements of suicide when boundaries would be set within clinical treatment modalities. CHARLOTTE Fagan will continue communication and coordination with Dr. Stephens through [facility]. DARYL contacted [facility] to schedule post hospital follow up for pt. DARYL requested Dr. Stephens to receive a message encouraging reduction or discontinuance of benzodiazopine tx due to increased risk of suicide and pt's report of chronic suicidal ideation over the past 2-3 years. Pt will attend post hospital follow up on 09/23/2018 at 3:30pm. FRANKIE Person
--- NOTE | 2018-09-18 15:26 | NUR ---
Nursing Note: Chief Complaint: Depression Legal hold: Voluntary Client on voluntary DTS Report received from nurse with use of SBAR: YEN Be Why are they here: Pt. presents to [facility] on a 5150 for S/I with a plan to overdose on medications. She reports that her mother committed suicide 3.5 years ago and she then began considering it herself and was referred here by her therapist, Megha Fagan. Pt. reports a history of OCD as a child, chronic depression, and anxiety. She also has a history of chronic pain in her back from degenerative disc disease and scoliosis, and had a spinal cord nerve stimulator implanted. Pt. has been experiencing worsening depression, been sleeping excessively, having difficulty with concentration, and so much anxiety she is afraid to leave the house. She has had ECT treatments in the past, and had been stable on her medications X10 years, however now feels that they are no longer working for her. Pt. is in a committed relationship with a man that she met in [employer]. Pt. signed voluntary. Diagnosis/presenting symptoms: Pt. continues to report S/I with a plan to overdose on medications if she were to return home. She also reports ongoing paranoia and A/H regarding others talking about her. Assessment What has happened this shift: The patient was up early at change of shift talking to another female patient in the group room. she was giving the other patient advice on her illnesses. The two women sat there, ate breakfast together and then continued for a couple of hours talking. Later when asked the patient stated she new she was giving advice and it was ok because she had a "psychology degree." She reported she tried to make clear why she was here to the [employer] and stated she felt offended by the conversation. She stated she tried to "convince" the SW that she needed to be here until she has an indication her anti-psychotic medication is beginning to work, but she admitted that she just hears people talking in the hallway not actually having AH's, but "this is how it all begins, so I need to be here." And also stated she can not leave until her antidepressant meds are "moving in the right direction." She stated "the SW and doctors are just seeing me helping others because I'm nice and it is not being egocentric." She could not clearly state the circumstances of her being admitted to this unit, and offered that she had been lying to her therapist Megha De La Torre because it's "just nice to get out of the house and talk to someone." She is med compliant, eating and sleeping well. SI, H/I: She would like to take her van out on [employer] property and just "forget everything." A/VH: Knows she is not having AH's, just hears people talking in the hallway. Sleep: Reports she has been sleeping well, however fatigued ADL's: Independent, pt. presents with minimal weakness r/t chronic pain from scoliosis and degenerative disc disease. Group attendance: Pt. has been attending groups Were meds taken: Yes Any med S/E: None Mental Status Exam Appearance: Neat and appropriately dressed Eye contact: Good Behavior: Cooperative Speech: Slow rate, soft, less pressured and halting Mood: Pleasant with lability at times Affect: Constricted Thought process: Circumstantial Thought Content: preoccupation with discharge Cognition: A&O X4 Insight: Poor Judgment: Fair Interventions PRN's used: Flexeril X1 Therapeutic interventions:Provided active listening, maintained a safe and therapeutic environment, ensured pt. contract for safety, provided medication education, encouraged independent performance of ADLs, assessed for pain and need for intervention, provided clear and simple instructions, oriented to reality as needed, and maintained Q 15 min safety checks. Restraints/seclusion/emergency medication: N/A Justification of Continued Inpatient Treatment: Pt. requires interruption of current crisis, continued medication adjustments, and therapeutic interventions.
[2018-09-18] MEDS: NICOTINE POLACRILEX 2 MG LOZENGE MM PRN (17:13)
[2018-09-18 19:00] VITALS: BP 91/60
[2018-09-18] MEDS: quetiapine 100mg tablet PO SCH (20:08)
[2018-09-18] MEDS ORDERED: quetiapine 100mg tablet PO PRN (20:46)
[2018-09-18] MEDS ORDERED: traZODone 50mg tablet PO SCH (21:00)
--- NOTE | 2018-09-18 23:38 | NUR ---
RN Progress Note: Chief Complaint: Depression Legal hold: Voluntary Client on voluntary DTS Report received from nurse with use of SBAR: YEN Reyes Why are they here: Pt. presents to [facility] on a 5150 for S/I with a plan to overdose on medications. She reports that her mother committed suicide 3.5 years ago and she then began considering it herself and was referred here by her therapist, Megha Fagan. Pt. reports a history of OCD as a child, chronic depression, and anxiety. She also has a history of chronic pain in her back from degenerative disc disease and scoliosis, and had a spinal cord nerve stimulator implanted. Pt. has been experiencing worsening depression, been sleeping excessively, having difficulty with concentration, and so much anxiety she is afraid to leave the house. She has had ECT treatments in the past, and had been stable on her medications X10 years, however now feels that they are no longer working for her. Pt. is in a committed relationship with a man that she met in [employer]. Pt. signed voluntary. Diagnosis/presenting symptoms: Pt. continues to report S/I with a plan to overdose on medications if she were to return home. She also reports ongoing paranoia and A/H regarding others talking about her. Assessment What has happened this shift: Patient is sitting in high fowlers in bed at the change of shift. She has a medication list in her lap and is making notes on it. She immediately requests information on her medication changes, and also requests her night medications as early as possible. This chart writer agrees to educate on all medications at 8 when her medications are due. 1:1 assessment at bedside is completed. She confirms she has SI and states her plan as Same plan. but did not elaborate, and states she feels safe here., and has no intent, just passive thoughts. She confirms AH stating I know they are real, but I think they are talking about me, which I know is just me, but that marsh not help. She confirms that its in her head that she thinks people talk about her, but it still bugs her. She talks in length about why she wants to stay here on the unit and not go home yet, giving various reasons such as medication changes to see a change in medications working.. She states I know I cant be here forever, I just want to see things are working. When her evening medications are brought to her patient is still sitting in bed reading over the same piece of paper with her medications on it. As medications are being given, and educated on the patient is taking notes on the paper. It appears the patient is perseverating on her medication changes. She is then assisted with applying ointment and gauze to her ears. When patient is checked on after evening medications. She is still in her bed in high fowlers position sleeping with the same piece of medication paper in her lap. S/I, H/I: Reports ongoing S/I with plan to OD on medications if she were to return home A/VH: Reports ongoing paranoia and A/H Sleep: Reports difficulty sleeping because she feels she heres her roommate talking ADL's: Independent Group attendance: No groups this shift Were meds taken: Yes Any med S/E: No noted this shift, patient reports no S/E Mental Status Exam Appearance: WNL Eye contact: Good Behavior: Cooperative, perseverating on medication list Speech: Slow rate, soft, pressured Mood: Pleasant Affect: Constricted Thought process: Circumstantial Thought Content: Paranoia, A/H, and preoccupation with negative thoughts and phobias, and medications Cognition: A&O X4 Insight: Fair Judgment: Fair Interventions PRN's used: None Therapeutic interventions: 1:1 assessment at patients bedside. Provided active listening, maintained a safe and therapeutic environment, ensured patient contract for safety. , Assessed for pain and need for intervention. Provided medication education, and monitored for side effects. Q 15 minute checks for safety. Restraints/seclusion/emergency medication: N/A Justification of Continued Inpatient Treatment: Pt. requires interruption of current crisis, continued medication adjustments, and therapeutic interventions.
[2018-09-19 08:00] VITALS: BP 97/60
[2018-09-19] MEDS: BELBUCA PO SCH ×2 (08:24→16:14)
[2018-09-19] MEDS: ATOMOXETINE 80 MG PO SCH (08:25)
[2018-09-19] MEDS: loratadine 10mg tablet PO SCH (08:26)
[2018-09-19] MEDS: levoTHYROXINE 75mcg tablet PO SCH (08:26)
[2018-09-19] MEDS: lactobacillus rhamnosus 10,000 MMU CELLS/CAPSULE PO SCH (08:26)
[2018-09-19] MEDS: QUEtiapine 25mg tablet PO SCH ×3 (08:26→16:14)
[2018-09-19] MEDS: clonazePAM 0.5mg tablet PO SCH (08:26)
[2018-09-19] MEDS: CRISABOROLE TOP SCH (08:27)
[2018-09-19] MEDS: triamcinolone acet 0.1% cream 15gm TP SCH (08:27)
[2018-09-19] MEDS: DOXYCYCLINE 100MG CAPSULE PO SCH ×2 (08:35→17:26)
[2018-09-19] MEDS: NICOTINE POLACRILEX 2 MG LOZENGE MM PRN ×2 (08:36→10:45)
[2018-09-19] MEDS: cyclobenzaprine 10mg tablet PO PRN (10:45)
--- NOTE | 2018-09-19 11:57 | NUR ---
1:1 DISCHARGE PLANNING SW contacted pt's SO, who has agreed to meet with SW, Provider and pt for safety planning and discharge this. SO, Trey Reynolds, agrees to store and maintain pt's medications in order to reduce lethality risk. He will also assist pt in attending post hospital follow up appointments. FRANKIE Person
[2018-09-19] MEDS: acetaminophen 325mg tablet PO PRN (13:07)
--- NOTE | 2018-09-19 15:23 | NUR ---
Nursing Note: Chief Complaint: Depression Legal hold: Voluntary Client on voluntary DTS Report received from nurse with use of SBAR: YEN Bland Why are they here: Pt. presents to [facility] on a 5150 for S/I with a plan to overdose on medications. She reports that her mother committed suicide 3.5 years ago and she then began considering it herself and was referred here by her therapist, Megha Fagan. Pt. reports a history of OCD as a child, chronic depression, and anxiety. She also has a history of chronic pain in her back from degenerative disc disease and scoliosis, and had a spinal cord nerve stimulator implanted. Pt. has been experiencing worsening depression, been sleeping excessively, having difficulty with concentration, and so much anxiety she is afraid to leave the house. She has had ECT treatments in the past, and had been stable on her medications X10 years, however now feels that they are no longer working for her. Pt. is in a committed relationship with a man that she met in [place]. Pt. signed voluntary. Diagnosis/presenting symptoms: Pt. continues to report S/I with a plan to overdose on medications if she were to return home. She also reports ongoing paranoia and A/H regarding others talking about her. Assessment What has happened this shift: Patient is pleasant, calm and cooperative. Goes to all meals and groups with others. Perseverating on discharge plan as discussed with DARYL. States, "they misunderstood me yesterday."Trying to enlist this nurse's opinion regarding having to "stay here until my meds are adjusted and I have proof everything is working and moving in the right direction." She was provided education on medications and that med changes are between she and her doctor or PA. Received flexeril and eduardo lozenge as prn's today. Boyfriend is scheduled to meet with DARYL PA and patient today at 3pm. SI, H/I: Passive SI A/VH: Knows she is not having AH's, just hears people talking in the hallway. Sleep: Reports she has been sleeping well ADL's: Independent, pt. presents with minimal weakness r/t chronic pain from scoliosis and degenerative disc disease. Group attendance: Pt. has been attending groups Were meds taken: Yes Any med S/E: None Mental Status Exam Appearance: Neat and appropriately dressed Eye contact: Good Behavior: Cooperative Speech: Slow rate, soft, less pressured and halting Mood: Pleasant with lability at times Affect: Constricted Thought process: Circumstantial Thought Content: preoccupation with discharge Cognition: A&O X4 Insight: Fair Judgment: Fair Interventions PRN's used: Flexeril X1, Eduardo Tye Therapeutic interventions:Provided active listening, maintained a safe and therapeutic environment, ensured pt. contract for safety, provided medication education, encouraged independent performance of ADLs, assessed for pain and need for intervention, provided clear and simple instructions, oriented to reality as needed, and maintained Q 15 min safety checks. Restraints/seclusion/emergency medication: N/A Justification of Continued Inpatient Treatment: Pt. requires interruption of current crisis, continued medication adjustments, and therapeutic interventions.
[2018-09-19] MEDS ORDERED: QUET25TA34 PO (17:43)
[2018-09-19] MEDS ORDERED: TRAZ-219 PO (17:43)
[2018-09-19] MEDS ORDERED: TRAZ-218 PO (17:43)
[2018-09-19] MEDS ORDERED: QUET100T33 PO (17:43)
--- NOTE | 2018-09-19 18:36 | NUR ---
DISCHARGE NOTE Patient demonstrates readiness for discharge. Met with SW and PA with her SO this afternoon to create a safety plan. Denies current S/I and speaking positively about the future. No Nicotine replacements needed. Educated on F/U instructions and medications, pt verbalized understanding. Printed prescriptions given to patient to fill at pharmacy. Pt's belongings inventoried and returned to her along with her home medications. Pt discharged at 1835, ambulated off the floor accompanied by staff and her SO who is driving her home.
== END 2018-09-19 18:35 | disposition home or self-care (01) | DRG 885 ==
LOC: ADULT MH 16:20
PROVIDERS: ADMIT Psychiatry & Neurology Psychiatry; ATTEND Psychiatry & Neurology Psychiatry
PROC: 3E02340 Introduction of Influenza Vaccine into Muscle, Percutaneous Approach (ICD-10-PCS; principal; 2018-09-13)
PROC: 3E0234Z Introduction of Serum, Toxoid and Vaccine into Muscle, Percutaneous Approach (ICD-10-PCS; 2018-09-13)
DX: F33.9 Major depressive disorder, recurrent, unspecified (principal); R45.851 Suicidal ideations; F60.89 Other specific personality disorders; E03.9 Hypothyroidism, unspecified; F41.9 Anxiety disorder, unspecified; G89.29 Other chronic pain; Z23 Encounter for immunization; Z79.899 Other long term (current) drug therapy; Z87.891 Personal history of nicotine dependence; Z82.0 Family history of epilepsy and other diseases of the nervous system; Z82.49 Family history of ischemic heart disease and other diseases of the circulatory system
CPT/HCPCS: 36415; 80061; 83036; 84443; 87070; 90732; Q2037

== ENCOUNTER 2020-12-24 04:07 | Emergency (ER) | payer MEDICARE, MEDICAID ==
[~2020-12-24] VITALS: Ht 177.8 cm; Wt 65.0 kg
[~2020-12-24 04:07] MED LIST changes: -CLON2TAB10 PO; +CRIS60OI TOP; -NALO25TA PO; +NALO25TA4 PO; -NORT50CA PO; +QUET100T33 PO; +QUET25TA34 PO; -TRAZ-219 PO; +TRAZ-251 PO; +TRAZ-256 PO
--- NOTE | 2020-12-24 05:26 | NUR ---
Patient presents with her caregiver Trey with whom she lives; Trey has been her caregiver since 2011. Patient had back surgery in [place] about a week ago. Per Trey, patient has had a telemedicine consult with her psychiatrist recently. Per Trey patient's level of functioning has declined significantly since her surgery. Trey came in to find "pills everywhere" today. Patient states she vomitted the pills up; neither knows what patient took. Patient is a very poor historian with flight of ideas but patient does state she was "preparing a nest" today to take the pills and mentions suicide. VSS, HR NSR. PO Dilaudid on discharge paperwork from [place] however they state she is taking Tylenol instead.
[2020-12-24 07:27] LABS: BASOPHILS % (AUTO) 0.2 % (0-1); EOSINOPHILS % (AUTO) 0.2 % (0-6); HEMATOCRIT 23.1 % (35.0-45.0); HEMOGLOBIN 7.6 g/dl (12.0-16.0); LYMPHOCYTES # (AUTO) 1.1 X10'3 (1.1-4.8); LYMPHOCYTES % (AUTO) 11.1 % (21-51); MEAN CORPUSCULAR HEMOGLOBIN 30.3 PG (27.0-31.0); MEAN CORPUSCULAR HGB CONC 33.1 g/dL (33.0-36.5); MEAN CORPUSCULAR VOLUME 91.4 FL (78-98); MEAN PLATELET VOLUME 8.2 FL (7.4-10.4); MONOCYTES # (AUTO) 0.6 X10'3 (0-0.9); MONOCYTES % (AUTO) 6.1 % (2-12); NEUTROPHILS # (AUTO) 8.2 X10'3 (1.8-7.7); NEUTROPHILS % (AUTO) 82.4 % (42-75); PLATELET COUNT 526 X10'3 (140-440); RED BLOOD COUNT 2.52 X10'6 (4.20-5.60); WHITE BLOOD COUNT 9.9 X10'3 (4.5-11.0)
[2020-12-24 07:36] LABS: ALANINE AMINOTRANSFERASE 121 U/L (12-78); ALBUMIN 2.9 G/DL (3.4-5.0); ALBUMIN/GLOBULIN RATIO 0.8 (1.1-1.5); ALKALINE PHOSPHATASE 410 IU/L (46-116); ANION GAP 8 (8-16); ASPARTATE AMINO TRANSFERASE 72 U/L (10-37); BILIRUBIN,TOTAL 0.3 MG/DL (0.1-1.0); BLOOD UREA NITROGEN 17 MG/DL (7-18); BUN/CREATININE RATIO 21.5 (6.6-38.0); CALCIUM 8.8 MG/DL (8.5-10.1); CHLORIDE 102 MMOL/L (99-107); CREATININE 0.79 MG/DL (0.40-0.90); GLUCOSE 128 MG/DL (70-104); SODIUM 137 MMOL/L (135-145); TOTAL CARBON DIOXIDE 27.3 MMOL/L (24-32); TOTAL PROTEIN 6.4 G/DL (6.4-8.2); eGFR 76 ML/MIN
--- NOTE | 2020-12-24 07:43 | NUR ---
DR. GUPTA ORDERED TO HOLD OFF ON CALLING POISON CONTROL UNTIL TOXICOLOGY/LAB RESULTS COME BACK. CAREGIVER STATES THAT HE DOES NOT THINK THAT PATIENT TOOK EXCESSIVE AMOUNT OF ANY OF HER MEDICATIONS. AWAITING LAB RESULTS.
[2020-12-24 07:45] LABS: ACETAMINOPHEN 2.5 UG/ML (10-30); ETHANOL < 0.010 GM/DL (0.0-0.010)
[2020-12-24 08:30] LABS: CLARITY,URINE SLIGHTLY CLOUDY (Clear); COLOR,URINE YELLOW (Yellow); GLUCOSE, URINE NEGATIVE (Neg); KETONES,URINE NEGATIVE (Neg); LEUKOCYTE ESTERASE ,URINE NEGATIVE (Neg); NITRITES, URINE NEGATIVE (Neg); OCCULT BLOOD,URINE NEGATIVE (Neg); PROTEIN,URINE NEGATIVE (Neg); UROBILINOGEN,URINE 0.2 E.U/dL (0.2-1.0)
[2020-12-24 08:36] LABS: UA COLLECTION TYPE FOLEY CATH
[2020-12-24 08:43] LABS: URINE AMPHETAMINE SCREEN NEGATIVE (Neg); URINE BARBITUATE SCREEN NEGATIVE (Neg); URINE BENZODIAZEPINES SCREEN NEGATIVE (Neg); URINE CANNABINOID SCREEN NEGATIVE (Neg); URINE COCAINE SCREEN NEGATIVE (Neg); URINE METHADONE SCREEN NEGATIVE (Neg); URINE OPIATE SCREEN NEGATIVE (Neg); URINE PHENCYCLIDINE SCREEN NEGATIVE (Neg)
[2020-12-24 08:45] LABS: AMORPHOUS PHOSPHATES 1+
[2020-12-24 08:49] LABS: BACTERIA,URINE NONE SEEN /HPF (Neg); RBC,URINE NONE SEEN /HPF (0-2); SQUAMOUS EPITHELIAL CELL,UR NONE SEEN /LPF (FEW); WBC,URINE NONE SEEN /HPF (0-4)
--- NOTE | 2020-12-24 09:10 | NUR ---
PACKET SENT TO [facility]
[2020-12-24] MEDS ORDERED: acetaminophen 325mg tablet PO ONE (11:05)
--- NOTE | 2020-12-24 17:33 | NUR ---
CAREGIVER SILVER [place]ST[place] [phone]
--- NOTE | 2020-12-24 18:06 | NUR ---
called dietary for tray
--- NOTE | 2020-12-24 18:56 | NUR ---
PT MOVED FROM MAIN ER 14 TO OVERFLOW 21
[2020-12-24] MEDS ORDERED: [UNRECOGNIZED DRUG - CODE] PO (19:23)
[2020-12-24] MEDS ORDERED: LEVO100C4 PO (19:23)
[2020-12-24] MEDS ORDERED: DOCU100C40 PO (19:23)
[2020-12-24] MEDS ORDERED: TRAZ-251 PO (19:23)
[2020-12-24] MEDS ORDERED: CHLO1LIQ2 (19:23)
[2020-12-24] MEDS ORDERED: QUET400T PO (19:23)
[2020-12-24] MEDS ORDERED: POLY17PO10 PO (19:23)
[2020-12-24] MEDS ORDERED: BUPR1TAB45 SL (19:37)
[2020-12-24] MEDS ORDERED: ACET-1008 PO (19:37)
--- NOTE | 2020-12-24 19:51 | NUR ---
PT is resting in bed, mcmahon emptied 2,500 ML. Caregiver Trey called, went over medication reconciliation with him and the rec from [facility].
[2020-12-24] MEDS ORDERED: bisacodyl 10mg suppository rectal RC PRN (20:10)
[2020-12-24] MEDS ORDERED: cyclobenzaprine 10mg tablet PO PRN (20:10)
[2020-12-24] MEDS ORDERED: acetaminophen 325mg tablet PO PRN (20:10)
[2020-12-24] MEDS ORDERED: quetiapine 100mg tablet PO SCH (21:00)
[2020-12-24] MEDS ORDERED: traZODone 150mg tablet PO SCH (21:00)
--- NOTE | 2020-12-24 21:00 | NUR ---
Pt was medication compliant. Pt is visibly uncofortable and cries. She states she is in pain but cannot voice what hurts.
[2020-12-24] MEDS ORDERED: buprenorphine/naloxone 8mg/2mg SL tablet SL ONE (21:10)
[2020-12-24] MEDS ORDERED: buprenorphine/naloxone 8MG-2MG SUBlingual film SL ONE ×2 (21:15)
[2020-12-24] MEDS: clonazePAM 1mg tablet PO SCH (21:33)
--- NOTE | 2020-12-24 22:00 | NUR ---
Pt is calmer, and debnies pain at this time. She looks at field underwriter and talks to her more clearly, but is still having flight of ideas.
--- NOTE | 2020-12-24 22:38 | NUR ---
breaking primary RN for 15 minutes, patient in bed lying on left side covers on eyes closed rr even un labored no observable s/s of acute stress at this time will report to the primary RN after 15 min break
--- NOTE | 2020-12-25 00:30 | NUR ---
Pt woke up requested warm blanket. Warm blankets placed on pt and pt assisted with drinking water.
--- NOTE | 2020-12-25 02:00 | NUR ---
PT sleeping on back, RR 14 even and unlabored
--- NOTE | 2020-12-25 04:19 | NUR ---
Pt shifts from time to time, and falls back asleep without issue.
--- NOTE | 2020-12-25 04:48 | NUR ---
Pt woke up and said her L knee was in pain. Pt given flexaril 10 mg PRN. PT also requests food, pt given sandwhich.
[2020-12-25 05:02] VITALS: BP 104/67
--- NOTE | 2020-12-25 05:20 | NUR ---
Breaking primary RN. Patient wants to sit on her walker seat to move her legs. Patient is in no distress at this time and verbalizes understanding that she has a mcmahon catheter and must remain seated on the walker to do her leg exercises by her bed.
--- NOTE | 2020-12-25 06:26 | NUR ---
Patient sleeping/reclining in bed with her knees up. No distress observed. Continue to monitor.
--- NOTE | 2020-12-25 06:46 | NUR ---
Patient awake and talking paranoid about her roommate in [employer] giving Marine's life story on the phone. "There flash bulbs everywhere and they were taking pictures of me even though I was in [place]." RN reassured patient that she is safe here. RN gave patient a Dulcolax suppository. Per caregiver, patient needs on to have a BM. RN also emptied patient's Aldrich with 700 mls out. Patient is no distress at this time. Continue to monitor.
[2020-12-25] MEDS ORDERED: loratadine 10mg tablet PO SCH (08:00)
[2020-12-25] MEDS ORDERED: docusate sod 100mg capsule PO SCH (08:00)
[2020-12-25] MEDS ORDERED: buprenorphine/naloxone 8MG-2MG SUBlingual film SL SCH (08:00)
[2020-12-25] MEDS ORDERED: levoTHYROXINE 100mcg tablet PO SCH (08:00)
[2020-12-25] MEDS ORDERED: DICLOFENAC SODIUM 75 MG PO SCH (08:00)
[2020-12-25] MEDS ORDERED: polyethylene glycol 3350 17gm powd pack PO SCH (08:00)
[2020-12-25] MEDS ORDERED: chlorhexidine gluconate 15ml Cup****oral rinse MM SCH (08:00)
[2020-12-25] MEDS: clonazePAM 1mg tablet PO SCH ×2 (08:21→13:48)
--- NOTE | 2020-12-25 08:30 | NUR ---
Note natalie in ED - 12/25/20 at 0832 by LAI Caprice BRAND, Evaluating patient. Patient is calm and cooperative.
--- NOTE | 2020-12-25 09:14 | NUR ---
Patient got up to use the BR and left her walker behind. Patient got about 10 feet and RN had patient stop and give her her walker. Patient continued on with walker. Continue to monitor.
--- NOTE | 2020-12-25 10:05 | NUR ---
Patient's caregiver, Trey, at bedside. No distress observed. Continue to monitor.
[2020-12-25] MEDS ORDERED: QUET25TA34 PO (10:43)
[2020-12-25] MEDS ORDERED: quetiapine 100mg tablet PO SCH (10:45)
[2020-12-25] MEDS ORDERED: QUEtiapine 25mg tablet PO SCH (10:48)
--- NOTE | 2020-12-25 12:53 | NUR ---
Patient slowly eating breakfast. No distress observed. Continue to monitor.
--- NOTE | 2020-12-25 13:58 | NUR ---
Patient accepted at [facility].
[2020-12-25] MEDS ORDERED: BUPR2TAB11 SL (16:47)
[2020-12-25] MEDS ORDERED: SENN-263 PO (17:05)
[2020-12-25] MEDS ORDERED: TRAM50TA2 PO (17:19)
[2020-12-25] MEDS ORDERED: QUET25TA PO ×3 (17:19)
[2020-12-25] MEDS ORDERED: ADV50100 INH (17:23)
[2020-12-25] MEDS ORDERED: CYCL-394 PO (17:23)
[2020-12-25] MEDS ORDERED: LORA10TA7 PO (17:23)
[2020-12-25] MEDS ORDERED: ACET-1025 PO (17:24)
[2020-12-26] MEDS ORDERED: LIDOCAINE 4% TOP (09:35)
[2020-12-26] MEDS ORDERED: CHLO473M2 PO (11:09)
== END 2020-12-25 14:55 ==
LOC: ER 04:08
DX: R45.851 Suicidal ideations (principal); G89.29 Other chronic pain; Z88.8 Allergy status to other drugs, medicaments and biological substances; Z79.2 Long term (current) use of antibiotics
CPT/HCPCS: 36415; 80053; 80305; 80320; 80329; 81001; 84443; 85025; 87635; 93005; 99285; C9803

== ENCOUNTER 2022-03-03 21:47 | Inpatient (IN) | payer MEDICARE, MEDICAID ==
[~2022-03-03] VITALS: Ht 177.8 cm; Wt 60.1 kg
[~2022-03-03 21:47] MED LIST changes: +ACET-1025 PO; +ADV50100 INH; +ALBU2.5V7 NEB; -ATOM80CA3 PO; +BUPR1FIL20 SL; +BUPR2TAB11 SL; -BUPR900F3 PO; +CHLO473M2 PO; +CLON1TAB12 PO; -CRIS60OI TOP; -CYCL-1 PO; +CYCL-394 PO; +DOCU100C40 PO; -DULR RC; +ESCI20TA39 PO; +FER325T PO; +FLUT16SP20 BOTHNARES; +LEVO100C4 PO; +LEVO100T PO; -LEVO75TA PO; +LIDOCAINE 4% TOP; -LORA-512 PO; +LORA10TA7 PO; -NALO25TA4 PO; +POLY17PO10 PO; -PREG200C PO; -QUET100T33 PO; +QUET25TA PO; -QUET25TA34 PO; +QUET400T PO; +SENN-263 PO; -SENN25TA10 PO; -TRAZ-251 PO; -TRAZ-256 PO; +TRAZ150T78 PO
--- NOTE | 2022-03-03 23:01 | NUR ---
SEIZURE PRECAUTIONS. WATCH TEMP. ROUTINE TOX LABS. CBC CMP. EKG INITAL REPEAT 6HRS FOR QTC PROLONGATION. 6 HOUR OBS. RECOMMENDED BENZOS FOR SEIZURE ACTIVITY.
[2022-03-04 00:18] LABS: BASOPHILS % (AUTO) 0.7 % (0-1); EOSINOPHILS # (AUTO) 0.2 X10'3 (0-0.9); EOSINOPHILS % (AUTO) 2.5 % (0-6); HEMOGLOBIN 9.6 g/dl (12.0-16.0); LYMPHOCYTES % (AUTO) 32.3 % (21-51); MEAN CORPUSCULAR HEMOGLOBIN 29.7 PG (27.0-31.0); MEAN CORPUSCULAR HGB CONC 33.2 g/dL (33.0-36.5); MEAN CORPUSCULAR VOLUME 89.5 FL (78-98); MEAN PLATELET VOLUME 8.4 FL (7.4-10.4); MONOCYTES # (AUTO) 0.4 X10'3 (0-0.9); MONOCYTES % (AUTO) 6.2 % (2-12); NEUTROPHILS # (AUTO) 3.5 X10'3 (1.8-7.7); NEUTROPHILS % (AUTO) 58.3 % (42-75); PLATELET COUNT 443 X10'3 (140-440); RED BLOOD COUNT 3.25 X10'6 (4.20-5.60); RED CELL DISTRIBUTION WIDTH 14.7 % (11.5-14.5); WHITE BLOOD COUNT 6.1 X10'3 (4.5-11.0)
[2022-03-04 00:32] LABS: ACETAMINOPHEN < 2.0 UG/ML (10-30); ALANINE AMINOTRANSFERASE 24 U/L (12-78); ALBUMIN/GLOBULIN RATIO 0.9 (1.1-1.5); ALKALINE PHOSPHATASE 114 IU/L (46-116); ANION GAP 7 (8-16); ASPARTATE AMINO TRANSFERASE 24 U/L (10-37); BILIRUBIN,TOTAL 0.4 MG/DL (0.1-1.0); BLOOD UREA NITROGEN 9 MG/DL (7-18); BUN/CREATININE RATIO 14.1 (6.6-38.0); CALCIUM 8.6 MG/DL (8.5-10.1); CHLORIDE 107 MMOL/L (99-107); CREATININE 0.64 MG/DL (0.40-0.90); GLUCOSE 86 MG/DL (70-104); POTASSIUM 3.6 MMOL/L (3.5-5.1); SODIUM 142 MMOL/L (135-145); TOTAL CARBON DIOXIDE 28.3 MMOL/L (24-32); TOTAL PROTEIN 6.3 G/DL (6.4-8.2); eGFR > 90 ML/MIN
[2022-03-04 01:21] LABS: URINE AMPHETAMINE SCREEN NEGATIVE (Neg); URINE BARBITUATE SCREEN NEGATIVE (Neg); URINE BENZODIAZEPINES SCREEN POSITIVE (Neg); URINE CANNABINOID SCREEN NEGATIVE (Neg); URINE COCAINE SCREEN NEGATIVE (Neg); URINE METHADONE SCREEN NEGATIVE (Neg); URINE OPIATE SCREEN POSITIVE (Neg); URINE PHENCYCLIDINE SCREEN NEGATIVE (Neg)
[2022-03-04] MEDS ORDERED: ACET-1131 PO (05:59)
[2022-03-04] MEDS ORDERED: BACL-11 PO (06:00)
[2022-03-04] MEDS ORDERED: CYCL1DRO10 RIGHTEYE (06:03)
[2022-03-04] MEDS ORDERED: CLON2TAB44 PO (06:05)
[2022-03-04] MEDS ORDERED: LEVO100T PO (06:05)
[2022-03-04] MEDS ORDERED: QUET25TA36 PO (06:11)
--- NOTE | 2022-03-04 08:45 | NUR ---
Assumed patient care at this time, patient is cooperative.
--- NOTE | 2022-03-04 09:23 | NUR ---
Ksenia estrada in [facility] - 03/04/22 at 0923 by AL Amie
--- NOTE | 2022-03-04 09:23 | NUR ---
Shayan from poison control called stating the case with them is completed at this time given the patient's vital sings, and EKG's and her mental status.
--- NOTE | 2022-03-04 10:00 | NUR ---
Patient appears slightly anxious, patient follows commands. Patient ate breakfast.
--- NOTE | 2022-03-04 11:00 | NUR ---
Patient has repitetive behavior, and asks the same questions, flilght of ideas.
--- NOTE | 2022-03-04 12:00 | NUR ---
Patient has repitetive behavior, and asks the same questions, flilght of ideas.
[2022-03-04] MEDS ORDERED: cyclobenzaprine 10mg tablet PO ONE (13:00)
[2022-03-04] MEDS ORDERED: ibuprofen 200mg tablet PO ONE (13:00)
--- NOTE | 2022-03-04 13:00 | NUR ---
Patient sleepingon stretcher.
[2022-03-04] MEDS ORDERED: docusate sod 100mg capsule PO ONE (13:10)
[2022-03-04] MEDS: lactose-reduced food (Ensure Enlive) - 237ml bottle PO SCH ×2 (13:39→18:21)
--- NOTE | 2022-03-04 14:00 | NUR ---
Patient is walking to restroom, appears to be cleaning herself.
--- NOTE | 2022-03-04 16:12 | NUR ---
Patient has repetitive behavior
--- NOTE | 2022-03-04 17:00 | NUR ---
Mental health coordinator at bedside.
--- NOTE | 2022-03-04 17:02 | NUR ---
Ksenia estrada in [facility] - 03/04/22 at 1703 by AL 413
[2022-03-04 18:08] LABS: CLARITY,URINE CLEAR (Clear); GLUCOSE, URINE NEGATIVE (Neg); KETONES,URINE NEGATIVE (Neg); LEUKOCYTE ESTERASE ,URINE SMALL (Neg); NITRITES, URINE NEGATIVE (Neg); OCCULT BLOOD,URINE MODERATE (Neg); PROTEIN,URINE NEGATIVE (Neg); UROBILINOGEN,URINE 0.2 E.U/dL (0.2-1.0)
[2022-03-04 18:22] LABS: COLOR,URINE YELLOW (Yellow); UA COLLECTION TYPE CLN CATCH MIDSTREAM
[2022-03-04] MEDS ORDERED: TRAZ-256 PO (18:37)
[2022-03-04] MEDS ORDERED: ESCI20TA PO (18:37)
[2022-03-04] MEDS ORDERED: LORA10TA7 PO (18:37)
[2022-03-04] MEDS ORDERED: QUET25TA PO (18:37)
[2022-03-04] MEDS ORDERED: ALB0.5UD IH (18:37)
[2022-03-04] MEDS ORDERED: FAMO-128 PO (18:37)
[2022-03-04] MEDS ORDERED: SENN-263 PO (18:37)
[2022-03-04] MEDS ORDERED: DOCU-148 PO (18:37)
[2022-03-04 18:43] LABS: BACTERIA,URINE FEW /HPF (Neg); RBC,URINE 0-2 /HPF (0-2); WBC,URINE 0-4 /HPF (0-4)
[2022-03-04 18:44] LABS: MUCUS STRANDS NONE SEEN /LPF (Neg); SQUAMOUS EPITHELIAL CELL,UR FEW /LPF (FEW)
[2022-03-04] MEDS ORDERED: HYDR2TAB28 PO (18:46)
[2022-03-04] MEDS ORDERED: BUDE10.2 INH (18:46)
[2022-03-04] MEDS ORDERED: FLUT16SP2 BOTHNARES (18:46)
[2022-03-04] MEDS ORDERED: MDI INH (18:46)
[2022-03-04] MEDS ORDERED: ALBUTEROL 90 MCG INH (18:46)
[2022-03-04] MEDS ORDERED: albuterol 2.5 MG/3 ML nebule NEB PRN (19:05)
[2022-03-04] MEDS ORDERED: acetaminophen 325mg tablet PO PRN (19:05)
[2022-03-04] MEDS ORDERED: sennosides 8.6mg tablet PO PRN (19:05)
--- NOTE | 2022-03-04 20:00 | NUR ---
The patient has been very restless and frequently up at the nursing station making requests and comments. Her speech is very rapid. She does report racing thoughts. She stated that she has not been sleeping at night. She is forgetful but when asked about her memory she described it as "fantastic" She is obsessingly cleaning and using the hand santizer to the point that the hand hospital staff pharmacist had to be removed from most areas on the unit.
[2022-03-04] MEDS: QUEtiapine 25mg tablet PO SCH (20:36)
[2022-03-04] MEDS: traZODone 50mg tablet PO SCH (20:36)
[2022-03-04] MEDS: docusate sod 100mg capsule PO SCH (20:37)
[2022-03-04] MEDS: clonazePAM 1mg tablet PO SCH (20:37)
[2022-03-04] MEDS: HYDROmorphone 2mg tablet PO PRN (20:37)
--- NOTE | 2022-03-04 20:58 | NUR ---
The patient is restless and has taken all of her blankets and sheets off her bed claiming they were dirty.
--- NOTE | 2022-03-04 21:05 | NUR ---
PATIENT 'S BEDDING WAS CHANGED ,WHILE SHE WAS WASHING UP AND CHANGING CLOTHES.
--- NOTE | 2022-03-04 22:21 | NUR ---
The patient is awake and sitting on the side of her bed
--- NOTE | 2022-03-04 23:41 | NUR ---
The patient is up and wanting medications. She was restarted on all her home medications.
[2022-03-05] MEDS ORDERED: baclofen 10mg tablet PO SCH
--- NOTE | 2022-03-05 01:04 | NUR ---
The patient appears to be sleeping
[2022-03-05] MEDS: budesonide 0.5mg/2ml UD nebule IH SCH ×3 (01:31→21:15)
[2022-03-05] MEDS: albuterol 2.5 MG/3 ML nebule NEB SCH ×5 (01:32→21:15)
--- NOTE | 2022-03-05 02:13 | NUR ---
Ksenia estrada in [facility] - 03/05/22 at 0214 by REESE The patient appears to be sleeping
--- NOTE | 2022-03-05 02:14 | NUR ---
The patient is very restless and fussing around her bed about the blankets etc.
--- NOTE | 2022-03-05 03:50 | NUR ---
The patient is resting on her bed
[2022-03-05] MEDS: baclofen 10mg tablet PO PRN ×2 (04:29→19:44)
[2022-03-05] MEDS: HYDROmorphone 2mg tablet PO PRN ×3 (04:29→19:44)
--- NOTE | 2022-03-05 04:43 | NUR ---
The patient awake and reported pain 8/10 and medicated for pain. She is up to use the bathroom.
--- NOTE | 2022-03-05 05:16 | NUR ---
The patient is up and down through out the night. She is wanting to take odd and random dose of medications and she was told she could only have medications as prescribed. She is disorganized and very obsessive and compulsive in her behaviors. She appears tired and has only had 2 hours of broken sleep.
--- NOTE | 2022-03-05 06:39 | NUR ---
Assumed patient care at this time.
--- NOTE | 2022-03-05 06:42 | NUR ---
Patient laying down on bed, appears restless.
[2022-03-05] MEDS: CYCLOSPORINE RIGHTEYE SCH (08:00)
--- NOTE | 2022-03-05 08:00 | NUR ---
Patient is has ambulated to the restroom, patient appears slightly restless.
[2022-03-05] MEDS: clonazePAM 1mg tablet PO SCH ×3 (08:20→19:46)
[2022-03-05] MEDS: famotidine 20mg tablet PO SCH (08:21)
[2022-03-05] MEDS: docusate sod 100mg capsule PO SCH ×2 (08:21→19:46)
[2022-03-05] MEDS: loratadine 10mg tablet PO SCH (08:21)
--- NOTE | 2022-03-05 08:27 | NUR ---
Patient ambulated to restroom.
[2022-03-05] MEDS: lactose-reduced food (Ensure Enlive) - 237ml bottle PO SCH ×3 (08:49→18:00)
--- NOTE | 2022-03-05 09:00 | NUR ---
Patient is seating on bed, appears slightly restless.
[2022-03-05] MEDS: fluticasone nasal spray 16GM bottle NS SCH (09:03)
[2022-03-05] MEDS: levoTHYROXINE 100mcg tablet PO SCH (09:03)
[2022-03-05] MEDS: ESCITALOPRAM OXALATE 5 MG TABLET PO SCH (09:04)
--- NOTE | 2022-03-05 10:12 | NUR ---
Patient ate breakfast.
--- NOTE | 2022-03-05 11:00 | NUR ---
Patient stated " I feel brilliant." Patient ambulated to restroom
--- NOTE | 2022-03-05 12:00 | NUR ---
Patient states she is starving. Meal will be givent o her when it arrives.
--- NOTE | 2022-03-05 12:10 | NUR ---
Meal tray given to patient
--- NOTE | 2022-03-05 12:27 | NUR ---
Patient ambulated to restroom
--- NOTE | 2022-03-05 13:00 | NUR ---
Patient ate lunch.
--- NOTE | 2022-03-05 14:30 | NUR ---
Patient appears anxious.
--- NOTE | 2022-03-05 15:45 | NUR ---
Patient's bed linens changed.
--- NOTE | 2022-03-05 16:30 | NUR ---
Patient is resting on the bed.
--- NOTE | 2022-03-05 17:00 | NUR ---
Patient resting on bed.
--- NOTE | 2022-03-05 17:36 | NUR ---
Alberto BARLOW came to pick patient up. Patient lefton wheelchair with RN, and two security officers, patient transfered to [facility]. Belongings and valuables with patient.
[2022-03-05] MEDS ORDERED: loperamide 2mg capsule PO PRN (17:40)
[2022-03-05] MEDS ORDERED: acetaminophen 325mg tablet PO PRN (17:40)
[2022-03-05] MEDS ORDERED: mag hydrox/Alum hydrox/simeth 30ml oral suspension PO PRN (17:40)
[2022-03-05] MEDS ORDERED: magnesium hydroxide 30ml (MOM) UD suspension PO PRN (17:40)
[2022-03-05 18:18] VITALS: BP 102/64
--- NOTE | 2022-03-05 18:26 | NUR ---
Admit note: [facility] on [facility]150 for Gravely disabled from our ER at 1736. Pt is confused, disorganized in thought process, rambles, tangential speech, has not been taking her medications correctly, unable to benefit from support at home. She has history of Bipolar, depression, psychosis and recent back surgery.
[2022-03-05 19:29] VITALS: BP 103/60
[2022-03-05] MEDS: acetaminophen 325mg tablet PO PRN (19:45)
[2022-03-05] MEDS: traZODone 50mg tablet PO SCH (19:45)
[2022-03-05] MEDS: QUEtiapine 25mg tablet PO SCH (19:46)
[2022-03-05] MEDS ORDERED: QUEtiapine 25mg tablet PO ONE (21:00)
--- NOTE | 2022-03-05 23:45 | NUR ---
Nursing Note: Problem: The patient presented in the ER after she took an overdose of Seroquel. She was having obsessional behaviors and thoughts. Her thought process was tangential and confused. She is postop spinal reconstructive surgery and has a large surgical incision with intact jodi. She has been having urinary retention and has an indwelling mcmahon catheter. Intervention: One to one with the patient to complete the admission process. Dr. Tee notified of patient anxiety about not being able to sleep and her inability to sleep last night in the ER and orders were received. Assessed for depressive symptoms and severity of anxiety. Surgical incision assessed. She is on q 15 minute safety checks. Response: The patient was laying on her bed and was very anxious and obsessing about not being able to sleep and needing extra Trazodone. She was aware that she has 250mg of Trazodone ordered at but she feels that the dose would be ineffective. She stated that she takes 1800mg at home then stated 600mg. Her thought process is poorly organized. She was a poor historian and answered "I don't remember" to medical history questions. She was unable to state what date her surgery was on. She denies ever being suicidal. She denies A/V hallucinations. She is easily overwhelmed and tearful at times. Plan: Assess surgical incision at least every shift and monitor for s/s of infection. Encourage appropriate care of mcmahon catheter. Provide reassurance with anxiety and obsessive thoughts. Assess for response to medications and possible side effects.
[2022-03-06] MEDS: albuterol 2.5 MG/3 ML nebule NEB SCH ×4 (02:00→21:12)
[2022-03-06 07:53] LABS: HEMOGLOBIN A1C 5.5 % (4.5-6.2)
[2022-03-06] MEDS: docusate sod 100mg capsule PO SCH ×2 (07:53→20:17)
[2022-03-06] MEDS: loratadine 10mg tablet PO SCH (07:53)
[2022-03-06] MEDS: levoTHYROXINE 100mcg tablet PO SCH (07:54)
[2022-03-06] MEDS: clonazePAM 1mg tablet PO SCH ×3 (07:54→20:17)
[2022-03-06] MEDS: ESCITALOPRAM OXALATE 5 MG TABLET PO SCH (07:54)
[2022-03-06] MEDS: famotidine 20mg tablet PO SCH (07:54)
[2022-03-06 07:56] LABS: CHOL/HDL RATIO 2.4 (0.00-4.99); CHOLESTEROL 152 MG/DL (0-200); HDL CHOLESTEROL 64 MG/DL (35-60); LDL CHOLESTEROL 66 MG/DL (50-100); TRIGLYCERIDES 94 MG/DL (20-135)
[2022-03-06 08:00] VITALS: BP 114/73
[2022-03-06] MEDS: fluticasone nasal spray 16GM bottle NS SCH (08:00)
[2022-03-06] MEDS: CYCLOSPORINE RIGHTEYE SCH ×2 (08:00→20:00)
[2022-03-06] MEDS: lactose-reduced food (Ensure Enlive) - 237ml bottle PO SCH ×3 (08:00→18:00)
[2022-03-06] MEDS: budesonide 0.5mg/2ml UD nebule IH SCH ×2 (09:42→21:12)
--- NOTE | 2022-03-06 09:44 | NUR ---
Pt. attended group today. The topic today was identifying the triggers, signs and symptoms of an upcoming episode/event so that Pts. can learn to apply coping skills before they get to a bad place with their symptoms. Pt. engaged appropriately in the group, she shared her thoughts freely and appeared to enjoy socializing with her peers. She had insight into what her triggers were and shared about what coping skills she utilizes. She was alert and oriented X 4. Her thought content and thought process were WNL. Her demeanor was calm, compliant and pleasant. She apologized to her peers in the group for being cranky that morning. She was open and friendly and interested in the topic. She did report a few times that her thinking was confused and took time to answer questions. Verna New, [place]
--- NOTE | 2022-03-06 14:22 | NUR ---
Nursing Note: Problem: The patient presented in the ER after she took an overdose of Seroquel. She was having obsessional behaviors and thoughts. Her thought process was tangential and confused. She is postop spinal reconstructive surgery and has a large surgical incision with intact jodi. She has been having urinary retention and has an indwelling mcmahon catheter. Intervention: Patient was awake at change of shift. RN spoke to patient before breakfast and patient was very anxious. Patient given her scheduled Clonazepam which worked well for patient. Patient could not remember the date of her surgery and kept telling RN it was March 17. RN kept advising patient that today's date was March 06. Looking through the chart her date of surgery was February 14. Patient agreed when she heard that date. Dr Olivas evaluated patient. Patient is c/o running nose. Patient does take Claritan daily but Dr. Olivas was going to order something for her. Patient denies suicidal ideation. Patient stated she has never heard voices and does not know why she was psychotic. Patient does not appear to have psychosis now but does have anxiety at times. RN did change her Mcmahon without changing the catheter. Patient wanted the hook so she can hang the bag on her pants. Response: Patient took her medications. RN washed patient's feet and changed her bedding this morning. Patient had good response to Clonazepam. and was very happy to have her Mcmahon bag with a hook. Patient's incision looks good without drainage. Plan: Assess surgical incision at least every shift and monitor for s/s of infection. Encourage appropriate care of mcmahon catheter. Provide reassurance with anxiety and obsessive thoughts. Assess for response to medications and possible side effects.
--- NOTE | 2022-03-06 15:03 | NUR ---
Assessment Attempted to complete assessment w/pt @ bedside, pt was a very poor historian, assessment completed via chart review. Monique Montelongo SALES PROMOTION COORDINATOR Addendum: 03/06/22 at 1504 by Monique Montelongo SS Amended: Links added.
--- NOTE | 2022-03-06 17:22 | NUR ---
Amendment. RN checking patient's roommate when patient called me over to talk to her. Patient was crying hard and it was difficult to understand her. Patient stated "My friend (s/o) would not let me speak to my brother and because of that I couldn't give him the information." RN asked "What information?" Patient stated "My brother's killed herself because any woman over 60 years of age will commit suicide if they have a UTI. Had I told her to brush Iodine down there (as she pointed to her urethral area) her UTI would have been cured and I could have saved her life." RN explained that people make choices and her choice was not the patient's fault. She kept on crying and believes this delusion. Side note: When RN asked patient was her friend her . Patient nods but states he doesn't like to be called that and wants to be called her "friend." Patient's , in her story, refused to let her speak to her brother. I just wanted to note the possibility of a "controlling friend".
[2022-03-06 19:39] VITALS: BP 125/78
[2022-03-06] MEDS: QUEtiapine 25mg tablet PO SCH (20:17)
[2022-03-06] MEDS: baclofen 10mg tablet PO PRN (20:17)
[2022-03-06] MEDS: traZODone 50mg tablet PO SCH (20:17)
[2022-03-07] MEDS: albuterol 2.5 MG/3 ML nebule NEB SCH ×4 (02:28→19:34)
--- NOTE | 2022-03-07 04:54 | NUR ---
Nursing Note: Problem: The patient presented in the ER after she took an overdose of Seroquel. She was having obsessional behaviors and thoughts. Her thought process was tangential and confused. She is postop spinal reconstructive surgery and has a large surgical incision with intact jodi. She has been having urinary retention and has an indwelling mcmahon catheter. Intervention: One to one with the patient to complete the admission process. Dr. Tee notified of patient anxiety about not being able to sleep and her inability to sleep last night in the ER and orders were received. Assessed for depressive symptoms and severity of anxiety. Surgical incision assessed. She is on q 15 minute safety checks. Response: Patient is pleasant but requires frequent redirection; compliant with medication. PRN Baclofen provided. She denies SI, HI, A/VH. She perseverates on tasks: emptying FC bag as soon as small reserve is care home full, having staff make her bed and gets up immediately to do it again, brushing hair and teeth constantly, drinking water because she believes she is dehydrated. Patient's urine is clear as water this shift. She reported her "fusion is broken" and also believes that her brace is broken. Patient observed having difficulty sleeping this shift; constantly up and down from bed. Plan: Assess surgical incision at least every shift and monitor for s/s of infection. Encourage appropriate care of mcmahon catheter. Provide reassurance with anxiety and obsessive thoughts. Assess for response to medications and possible side effects.
[2022-03-07] MEDS: loratadine 10mg tablet PO SCH (07:20)
[2022-03-07] MEDS: fluticasone nasal spray 16GM bottle NS SCH (07:20)
[2022-03-07] MEDS: famotidine 20mg tablet PO SCH (07:20)
[2022-03-07] MEDS: clonazePAM 1mg tablet PO SCH ×3 (07:20→19:56)
[2022-03-07] MEDS: docusate sod 100mg capsule PO SCH ×2 (07:20→19:55)
[2022-03-07] MEDS: levoTHYROXINE 100mcg tablet PO SCH (07:20)
[2022-03-07] MEDS: ESCITALOPRAM OXALATE 5 MG TABLET PO SCH (07:20)
[2022-03-07 07:29] LABS: HEMATOCRIT 33.9 % (35.0-45.0); HEMOGLOBIN 11.1 g/dl (12.0-16.0); MEAN CORPUSCULAR HEMOGLOBIN 29.5 PG (27.0-31.0); MEAN CORPUSCULAR HGB CONC 32.7 g/dL (33.0-36.5); MEAN CORPUSCULAR VOLUME 90.2 FL (78-98); MEAN PLATELET VOLUME 8.9 FL (7.4-10.4); PLATELET COUNT 444 X10'3 (140-440); RED BLOOD COUNT 3.76 X10'6 (4.20-5.60); RED CELL DISTRIBUTION WIDTH 14.4 % (11.5-14.5); WHITE BLOOD COUNT 8.5 X10'3 (4.5-11.0)
[2022-03-07] MEDS: budesonide 0.5mg/2ml UD nebule IH SCH ×2 (07:56→19:34)
[2022-03-07 08:00] VITALS: BP 139/64
[2022-03-07] MEDS: lactose-reduced food (Ensure Enlive) - 237ml bottle PO SCH ×3 (08:00→17:18)
[2022-03-07] MEDS: CYCLOSPORINE RIGHTEYE SCH ×2 (08:00→19:57)
[2022-03-07] MEDS: acetaminophen 325mg tablet PO PRN ×2 (09:22→19:56)
[2022-03-07] MEDS: baclofen 10mg tablet PO PRN ×2 (09:22→19:55)
[2022-03-07] MEDS ORDERED: quetiapine 100mg tablet PO PRN ×2 (10:55→11:35)
[2022-03-07] MEDS: QUEtiapine 25mg tablet PO PRN ×2 (12:10→19:55)
[2022-03-07] MEDS ORDERED: HYDROmorphone 2mg tablet PO ONE (12:25)
[2022-03-07 13:10] LABS: CLARITY,URINE CLEAR (Clear); COLOR,URINE YELLOW (Yellow); GLUCOSE, URINE NEGATIVE (Neg); KETONES,URINE NEGATIVE (Neg); LEUKOCYTE ESTERASE ,URINE MODERATE (Neg); NITRITES, URINE POSITIVE (Neg); OCCULT BLOOD,URINE LARGE (Neg); PROTEIN,URINE NEGATIVE (Neg); UA COLLECTION TYPE NON-SPECIFIED; UROBILINOGEN,URINE 0.2 E.U/dL (0.2-1.0)
[2022-03-07 13:15] LABS: BACTERIA,URINE 1+ /HPF (Neg); SQUAMOUS EPITHELIAL CELL,UR FEW /LPF (FEW)
--- NOTE | 2022-03-07 16:49 | NUR ---
Nursing Note: Marine Problem: The patient presented in the ER after she took an overdose of Seroquel. She was having obsessional behaviors and thoughts. Her thought process was tangential and confused. She is postop spinal reconstructive surgery and has a large surgical incision with intact jodi. She has been having urinary retention and has an indwelling Aldrich catheter. Intervention: Chief Cruiser continues to provide pt. with a safe and therapeutic environment, clear communication, active listening and positive encouragement. Pt. encouraged to participate on unit and in group therapy, and 1:1 assessment provided with medication administration. Q15min checks continue for pt. safety. Response: Pt. denies SI, HI, A/VH, and reports she was admitted d/t accidental overdose with plans to DC home after I get my clothes hung up pt. presents as disorganized and strays off topic, but is easily redirected. Pt. continues to wear her back brace when OOB, however no paperwork could be found with details. Chief Cruiser found the surgeon is Diego Fernandes with [facility]; a call was made for a copy of the post op report. In addition, pt. had an indwelling FC with reports of urinary retention; no documentation supporting that could be found. Provider requested FC removal and UA/PETROLEUM REFINERY OPERATOR of tip and sample. Pt. passing urine without issue no c/o abdominal pain or distension found. Pt. found to have 8/10 back pain; PRN Tylenol was ineffective, and provider wrote one time order for hydromorphone 2mg along with one time Seroquel. Respiratory reported pt. refused her Tx. Plan: Wound care consult completed. Stabilization on medications. Assess for response to medications and possible side effects.
[2022-03-07 19:18] VITALS: BP 112/69
[2022-03-07] MEDS: QUEtiapine 25mg tablet PO SCH (19:55)
[2022-03-07] MEDS: traZODone 50mg tablet PO SCH (19:56)
--- NOTE | 2022-03-07 23:54 | NUR ---
Nursing Note: Problem: The patient presented in the ER after she took an overdose of Seroquel. She was having obsessional behaviors and thoughts. Her thought process was tangential and confused. She is postop spinal reconstructive surgery and has a large surgical incision with intact jodi. She had an indwelling mcmahon catheter that was removed 03/07/22. She is having frequency with urination and her UA is being cultured. She has postop pain. Intervention: One to one with the patient to assess for severity of thought disorder and how it impacts her ability to function on the unit. Physical assessment completed including assessment of surgical site and for urinary complaints s/p mcmahon removal. Assessed for severity of pain and tylenol and baclofen given at HS. Mood symptoms assessed. Provided HS medications and assessed for medication side effects. UA lab results assessed and reported to credit charge authorizer. Response: The patient has been up on the unit and is appropriately dressed and groomed. She is wearing her back brace. She is restless and is constantly fussing with her brace, her bedding or her clothing. She is appears very anxious. She is focused on her medication and is asking for additional Seroquel which was given to her at HS but then later wanted more when she was up fussing with her bed linens and she was encouraged to lay down and try and sleep. When asked how her mood was she stated, "pretty foggy" She also made the comment, "I have OCD really bad" and that her anxiety was very high. She denies thoughts to harm herself or others adding "No I never do" She also denies any A/V hallucinations. Her personal living space was in disarray. She is disorganized and had difficulty staying on task during the one to one nursing assessment. The patient reports that her stapes were to be removed 03/06/22. Plan: Staff to call her surgeon to have a date the jodi on her back incision were to come out and the credit charge authorizer reports she will relay that information to the dayshift credit charge authorizer. UA results to also be reported in shift report to be addressed by MD on 03/08. Continue to provide medications and assess for effectiveness. Assess incision at least q shift.
[2022-03-08] MEDS: albuterol 2.5 MG/3 ML nebule NEB SCH ×4 (01:34→20:00)
--- NOTE | 2022-03-08 02:00 | NUR ---
[facility] SURGEON for back surgery Frantz Fernandes ([phone])
[2022-03-08] MEDS: QUEtiapine 25mg tablet PO PRN ×3 (03:52→20:01)
[2022-03-08] MEDS: baclofen 10mg tablet PO PRN ×2 (03:52→20:02)
[2022-03-08] MEDS: acetaminophen 325mg tablet PO PRN (03:53)
[2022-03-08 07:20] VITALS: BP 108/71
[2022-03-08] MEDS: levoTHYROXINE 100mcg tablet PO SCH (07:33)
[2022-03-08] MEDS: ESCITALOPRAM OXALATE 5 MG TABLET PO SCH (07:33)
[2022-03-08] MEDS: clonazePAM 1mg tablet PO SCH ×3 (07:34→20:02)
[2022-03-08] MEDS: famotidine 20mg tablet PO SCH (07:34)
[2022-03-08] MEDS: docusate sod 100mg capsule PO SCH ×2 (07:34→19:54)
[2022-03-08] MEDS: loratadine 10mg tablet PO SCH (07:34)
[2022-03-08] MEDS: fluticasone nasal spray 16GM bottle NS SCH (07:41)
[2022-03-08] MEDS: CYCLOSPORINE RIGHTEYE SCH ×2 (08:00→19:55)
[2022-03-08] MEDS: lactose-reduced food (Ensure Enlive) - 237ml bottle PO SCH ×3 (08:00→18:08)
[2022-03-08] MEDS: budesonide 0.5mg/2ml UD nebule IH SCH ×2 (08:23→20:00)
--- NOTE | 2022-03-08 12:42 | NUR ---
CARISA Spoke with Primary SALES AGENT [employer] for patient regarding jodi. She will send a message to the hospitalist with the surgeons number and name from [facility] to get further orders for patients jodi. Order is needed to remove the jodi. Ovando are intact, incision is closed, no signs of infection noted. Irritation from the staple is starting to show. Informed her she can reconsult wound care if help needed removing jodi after surgeon gives ok to hospitalist.
--- NOTE | 2022-03-08 14:45 | NUR ---
Engine Buildup Mechanic has attempted to reach D surgeon for two days with no rtesults. Hospitalist paged earlier this shift.
--- NOTE | 2022-03-08 16:52 | NUR ---
Spoke to Tony at [facility]. Orders for staple removal are to be faxed to [facility] today and also a f/u with surgeon was found in records to be on 03-19-22 @3248, [address] [address].
--- NOTE | 2022-03-08 16:56 | NUR ---
Recieved a call from [facility] requesting a 48 hr notice before pt. is DC to allow time to organize f/u care. refrigeration person Jeanne @ [phone]
--- NOTE | 2022-03-08 18:07 | NUR ---
Nursing Note: Marine Problem: The patient presented in the ER after she took an overdose of Seroquel. She was having obsessional behaviors and thoughts. Her thought process was tangential and confused. She is postop spinal reconstructive surgery and has a large surgical incision with intact jodi. She has been having urinary retention and has an indwelling Aldrich catheter. Intervention: Distance Education Faculty Liaison continues to provide pt. with a safe and therapeutic environment, clear communication, active listening and positive encouragement. Pt. encouraged to participate on unit and in group therapy, and 1:1 assessment provided with medication administration. Q15min checks continue for pt. safety. Response: Pt. denies SI, HI, A/VH, and reports she was admitted d/t accidental overdose with plans to DC with Arvin the Cardroom Hand Pt. is disorganized and obsessive re her cleaning techniques and reported Im contaminated Pt. has been advised to decrease her handwashing length as her hands are red and appear irritated. Pt. became tearful and agitated stating I was in coma last night. She took her meds without hesitation and was given PRN Seroquel X1. Pt. was seen by WC nurse (note available) Pt. was seen by Hospitalist (note available). This hand sign writer is waiting on staple removal order from [facility] expected today. Pt. ate her meals in the dining room but often leaves several times to wash her hands and becoming upset her food is then cold. Pt. is well groomed wearing street clothes, and keeps her back brace on when OOB. Plan: Wound care consult completed. Stabilization on medications. Assess for response to medications and possible side effects.
[2022-03-08 19:00] VITALS: BP 134/68
[2022-03-08 19:35] VITALS: BP 134/68
[2022-03-08] MEDS: HYDROmorphone 2mg tablet PO PRN (20:02)
[2022-03-08] MEDS: traZODone 50mg tablet PO SCH (20:02)
[2022-03-08] MEDS: QUEtiapine 25mg tablet PO SCH (20:02)
[2022-03-08] MEDS ORDERED: budesonide 0.5mg/2ml UD nebule IH PRN (20:25)
--- NOTE | 2022-03-08 22:20 | NUR ---
Nursing Note: Problem: The patient presented in the ER after she took an overdose of Seroquel. She was having obsessional behaviors and thoughts. Her thought process was tangential and confused. She is postop spinal reconstructive surgery and has a large surgical incision with intact jodi. She had an indwelling mcmahon catheter that was removed 03/07/22. She is having frequency with urination and her UA is being cultured. She has postop pain. Intervention: One to one with the patient to assess severity of thought disorder and self harm risk. Medicated with PRN pain medications. She was served with a 14 day hold and it was explained to her and she was given a copy. Response: The patient reports that she had slept all night last night and she was reminded that she in [facility] did not sleep well. She is focused on cleaning and washing her hands. She did shower. She was cooperative with moving to a new room. She stated that she had spit her meds into her blankets earlier in the day because she did not get her pepcid prior to breakfast and was focused on that and believed that was causing her to have frequent bowel movements. Plan: Continue safety checks as ordered. Assess for severity of thought disorder at least every shift and prn. Colace was held at . Orders from surgeon in her chart and per chargeback specialist having the jodi out will be addressed in the morning.
[2022-03-08] MEDS: cefpodoxime proxetil 100mg tablet PO SCH (23:35)
[2022-03-09] MEDS: QUEtiapine 25mg tablet PO PRN ×2 (01:42→13:55)
--- NOTE | 2022-03-09 01:45 | NUR ---
The patient up for the 2nd time stating she is having racing thoughts and is unable to sleep. She was given seroquel prn for the 2nd time this evening.
[2022-03-09] MEDS: baclofen 10mg tablet PO PRN (06:34)
[2022-03-09] MEDS: HYDROmorphone 2mg tablet PO PRN (06:34)
--- NOTE | 2022-03-09 07:00 | NUR ---
Order recieved frpm UCD to remove jodi apply triple ABT, cover with dry dressing removing after 24hrs
[2022-03-09] MEDS: ESCITALOPRAM OXALATE 5 MG TABLET PO SCH (07:19)
[2022-03-09] MEDS: clonazePAM 1mg tablet PO SCH ×3 (07:19→20:15)
[2022-03-09] MEDS: loratadine 10mg tablet PO SCH (07:19)
[2022-03-09] MEDS: docusate sod 100mg capsule PO SCH ×2 (07:19→20:00)
[2022-03-09] MEDS: famotidine 20mg tablet PO SCH (07:19)
[2022-03-09] MEDS: levoTHYROXINE 100mcg tablet PO SCH (07:19)
[2022-03-09] MEDS: cefpodoxime proxetil 100mg tablet PO SCH ×2 (07:22→17:20)
[2022-03-09] MEDS: lactose-reduced food (Ensure Enlive) - 237ml bottle PO SCH (08:00)
[2022-03-09] MEDS: fluticasone nasal spray 16GM bottle NS SCH (08:00)
[2022-03-09] MEDS: CYCLOSPORINE RIGHTEYE SCH ×2 (08:00→20:13)
[2022-03-09 08:54] VITALS: BP 110/80
--- NOTE | 2022-03-09 09:49 | NUR ---
[place] removed 77 in total, skin well approximated and healed, no discharge or blood occured. Pt. tolerated staple removal without problem. No s/sx of infection, applied area with triple ABT and covered with dry dressing per order
--- NOTE | 2022-03-09 11:12 | NUR ---
Initial: Pt admit for psychosis. Pt s/p recent back surgery with jodi removed this morning and skin is well approximated and healed per innersole fitter. Pt on a regular diet and eating well documented with mostly 75-100% PO intake. Pt also receiving an Ensure Enlive TID of which pt mostly with 100% PO intake of. TC to RN with recommendation to discontinue ONS as pt meeting 153-185% maximum estimated energy needs and 217-258% maximum estimated protein needs with combined PO intake of meals and ONS. Pt meeting estimated nutrient needs with PO intake of meals alone. LB 03/08, receiving routine and PRN bowel care. No nutrition intervention implemented at this time. Will continue to follow. Recommendations: 1) Continue regular diet 2) Discontinue Ensure Enlive TID; pt excessively exceeding estimated protein and energy needs 3) Routine bowel care 4) Weekly scaled weights Addendum: 03/09/22 at [address] Amended: Links added.
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
[2022-03-09] MEDS ORDERED: QUEtiapine 25mg tablet PO PRN (18:35)
[2022-03-09 19:00] VITALS: BP 130/70
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
[2022-03-09] MEDS ORDERED: QUEtiapine 25mg tablet PO SCH (21:00)
[2022-03-09] MEDS ORDERED: traZODone 50mg tablet PO SCH (21:00)
--- NOTE | 2022-03-09 22:59 | NUR ---
Patient continues to be needy. She desires eye drops for dry eyes, patient believes she is at risk for retinal detachments Patient is resistant to sleep at this time. Patient is encouraged to sleep..
[2022-03-10] MEDS: QUEtiapine 25mg tablet PO PRN ×3 (00:07→13:19)
--- NOTE | 2022-03-10 00:10 | NUR ---
Patient remains awake and complains of agitation. PO Seroquel 50 mg given PO.
[2022-03-10 08:00] VITALS: BP 125/72
[2022-03-10] MEDS: loratadine 10mg tablet PO SCH (08:27)
[2022-03-10] MEDS: fluticasone nasal spray 16GM bottle NS SCH (08:28)
[2022-03-10] MEDS: clonazePAM 1mg tablet PO SCH ×3 (08:28→20:29)
[2022-03-10] MEDS: docusate sod 100mg capsule PO SCH ×2 (08:28→20:00)
[2022-03-10] MEDS: famotidine 20mg tablet PO SCH (08:29)
[2022-03-10] MEDS: cefpodoxime proxetil 100mg tablet PO SCH ×2 (08:29→18:02)
[2022-03-10] MEDS: levoTHYROXINE 100mcg tablet PO SCH (08:29)
[2022-03-10] MEDS: ESCITALOPRAM OXALATE 5 MG TABLET PO SCH (08:29)
[2022-03-10] MEDS: CYCLOSPORINE RIGHTEYE SCH ×2 (08:33→20:30)
[2022-03-10] MEDS: albuterol 2.5 MG/3 ML nebule NEB PRN (11:20)
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
[2022-03-10 20:00] VITALS: BP 130/70
[2022-03-10] MEDS: HYDROmorphone 2mg tablet PO PRN (20:41)
[2022-03-10] MEDS ORDERED: QUEtiapine 25mg tablet PO SCH (21:00)
[2022-03-11] MEDS: QUEtiapine 25mg tablet PO PRN ×3 (01:50→23:05)
[2022-03-11] MEDS: HYDROmorphone 2mg tablet PO PRN ×2 (05:13→19:37)
[2022-03-11 07:25] VITALS: BP 123/74
[2022-03-11] MEDS: levoTHYROXINE 100mcg tablet PO SCH (07:52)
[2022-03-11] MEDS: famotidine 20mg tablet PO SCH (07:52)
[2022-03-11] MEDS: docusate sod 100mg capsule PO SCH ×2 (08:00→19:24)
[2022-03-11] MEDS: loratadine 10mg tablet PO SCH (08:16)
[2022-03-11] MEDS: fluticasone nasal spray 16GM bottle NS SCH (08:16)
[2022-03-11] MEDS: clonazePAM 1mg tablet PO SCH ×3 (08:16→19:37)
[2022-03-11] MEDS: CYCLOSPORINE RIGHTEYE SCH ×2 (08:17→19:39)
[2022-03-11] MEDS: ESCITALOPRAM OXALATE 5 MG TABLET PO SCH (08:17)
[2022-03-11] MEDS: cefpodoxime proxetil 100mg tablet PO SCH ×2 (08:18→17:25)
[2022-03-11] MEDS: benzocaine/menthol oral lozeng 1 EACH BOX MM PRN (12:41)
--- NOTE | 2022-03-11 17:44 | NUR ---
Nursing Note: Problem: The patient presented in the ER after she took an overdose of Seroquel. She was having obsessional behaviors and thoughts. Her thought process was tangential and confused. She is postop spinal reconstructive surgery and has a large surgical incision with intact jodi. She has been having urinary retention and has an indwelling Aldrich catheter. Intervention: Received patient when she woke up at approximately 0715 this morning and requested her Synthroid and Pepcid prior to being served her breakfast. Patient sat up in the dining room with another peer and was laughing and having fun while eating. Patient requested Seroquel 50 mg po with her 0800 medication. Patient appeared less anxious than yesterday, and calmly completed tasks throughout the day, after taking a nap for approximately 3 hours this morning. Patient reports feeling much better having a nap. Patients border gauze dressing was removed from her back, and the incision was clean, dry and well approximated. No drainage noted. Patient reports no pain d/t her back incision, and is happy to have her dressing off Because now I can exercise. Patient has been happy, smiling and much more alert & oriented throughout the entire day. Patient is feeling hopeful for her future in a much more positive manner than yesterday. Patient has had no confusion or delirium or hallucinations today. Response: Great response and much more control today exercised by the patient in her recovery process, as well as her mentation. No confusion or random comments that were inaccurate about her roommate and other peers in the department. Patients appetite is improved today, and she has ambulated multiple times in the hallways which she reports Makes me feel much better. Plan: Crisis intervention, stabilization on medications. Assess for response to medications and possible side effects.
--- NOTE | 2022-03-11 17:52 | NUR ---
Addendum to Wound Care Order: Patient has an order entered for a "Wound Care Consult," to be done this week. Listed under patient interventions was an intervention to take a picture of patient's lumbar spine. Patient had a border gauze covering her entire posterior back midline incision. This border gauze was removed by this typewriter assembler. Wound is healing perfectly. No drainage. No redness/swelling. It is healing without any complications. While I cannot understand the reason for the wound care order, the wound care pictures were not taken as their is no issue in which I would take pictures of a normal healing posterior back midline incision.
[2022-03-11] MEDS: cyclobenzaprine 10mg tablet PO PRN (19:36)
[2022-03-11] MEDS: traZODone 150mg tablet PO SCH (19:36)
[2022-03-11] MEDS: QUEtiapine 25mg tablet PO SCH (19:37)
[2022-03-11 20:03] VITALS: BP 114/66
[2022-03-11] MEDS: polyvinyl alcohol ophthalmic drops 15ml bottle EACHEYE PRN (23:06)
[2022-03-11] MEDS: acetaminophen 325mg tablet PO PRN (23:09)
--- NOTE | 2022-03-11 23:41 | NUR ---
Nursing Note: Problem: The patient presented in the ER after she took an overdose of Seroquel. She was having obsessional behaviors and thoughts. Her thought process was tangential and confused. She is postop spinal reconstructive surgery and has a large surgical incision. She is receiving treatment for a UTI Intervention: One to one with the patient to assess severity of obsessive behaviors and thoughts. Assessed for mood symptoms and self harm risk. Surgical site assessed for s/s of infection. Response: The patient stated that she was feeling better. She did appear to be less frantic and she was less intrusive with others. She described her mood as "very clam and safe" She made odd statements about last evening "I was highly allergic to what I had been given for sleep" and that she "was bicycling for hours and no would do anything" At times it was difficult to follow what she was saying. She did appear clean and well groomed. She racing thoughts. She stated that she was not having any suicidal thoughts or thoughts to harm others. Plan: Continue medication management. Physical assessment every shift to include assessment of her surgical incision. Provide pain medications as needed. Assess for severity of thought disorder and mood symptoms at least every shift.
[2022-03-12] MEDS: benzocaine/menthol oral lozeng 1 EACH BOX MM PRN ×2 (03:48→20:33)
[2022-03-12 08:00] VITALS: BP 119/72
[2022-03-12] MEDS: loratadine 10mg tablet PO SCH (08:09)
[2022-03-12] MEDS: fluticasone nasal spray 16GM bottle NS SCH (08:09)
[2022-03-12] MEDS: docusate sod 100mg capsule PO SCH ×2 (08:10→20:32)
[2022-03-12] MEDS: ESCITALOPRAM OXALATE 5 MG TABLET PO SCH (08:11)
[2022-03-12] MEDS: levoTHYROXINE 100mcg tablet PO SCH (08:11)
[2022-03-12] MEDS: famotidine 20mg tablet PO SCH (08:11)
[2022-03-12] MEDS: clonazePAM 1mg tablet PO SCH ×3 (08:11→20:33)
[2022-03-12] MEDS: cefpodoxime proxetil 100mg tablet PO SCH (08:12)
[2022-03-12] MEDS: CYCLOSPORINE RIGHTEYE SCH ×2 (08:12→20:33)
[2022-03-12] MEDS: QUEtiapine 25mg tablet PO PRN (13:05)
--- NOTE | 2022-03-12 14:10 | NUR ---
5250 upheld for GD
[2022-03-12] MEDS: HYDROmorphone 2mg tablet PO PRN ×2 (14:24→23:30)
--- NOTE | 2022-03-12 19:08 | NUR ---
Nursing Note: Problem: The patient presented in the ER after she took an overdose of Seroquel. She was having obsessional behaviors and thoughts. Her thought process was tangential and confused. She is postop spinal reconstructive surgery and has a large surgical incision with intact jodi. She has been having urinary retention and has an indwelling Aldrich catheter. Intervention: Received patient while she was sleeping. Patient was up at approximately 0730 ambulating in the hallway and drinking coffee in the Observation Room. Patient appears calm but continues to ask When will my money be here from the Business [employer]? Informed the patient that I was not aware of any money that she would have available. Patients Joe Yang came in for visiting hours at 1000. Spoke directly with FRANKIE Gillespie, as Trey wanted to know if she would be going to her appointment on 03/19 at [facility]. Informed Trey that I would forward this question to the crop farm workers and they would call him directly regarding whether or not the patient would be released to go out of [facility]. Patient received Seroquel 50mg po at 0800 for c/o anxiety, and received Dilaudid for pain. Patient also reported at approximately 1330 that she was nervous about her court session scheduled today, and requested a Seroquel 25mg po. Patient is making daily improvements on her clarity and overall feeling better each day. Response: Patient has had a positive response to the administration of Seroquel helping decrease her anxiety, as well as the Dilaudid helping her with her back pain. Patient is increasingly more linear each day, and her strength is also improving. Plan: Crisis intervention, stabilization on medications. Assess for response to medications and possible side effects.
[2022-03-12] MEDS: QUEtiapine 25mg tablet PO SCH (20:33)
[2022-03-12] MEDS: polyvinyl alcohol ophthalmic drops 15ml bottle EACHEYE PRN (20:33)
[2022-03-12] MEDS: traZODone 150mg tablet PO SCH (20:33)
[2022-03-12] MEDS: cyclobenzaprine 10mg tablet PO PRN (20:38)
[2022-03-12] MEDS: acetaminophen 325mg tablet PO PRN (20:39)
[2022-03-12 20:52] VITALS: BP 143/85
[2022-03-12] MEDS: traZODone 50mg tablet PO PRN (23:30)
--- NOTE | 2022-03-13 01:20 | NUR ---
Nursing Note: Problem: The patient presented in the ER after she took an overdose of Seroquel. She was having obsessional behaviors and thoughts. Her thought process was tangential and confused. She is postop spinal reconstructive surgery and has a large surgical incision with intact jodi. She had been having urinary retention and had an indwelling Aldrich catheter. Intervention: Log Operations Coordinator continues to provide pt. with a safe and therapeutic environment, clear communication, active listening and positive encouragement. Pt. encouraged to participate on unit and in group therapy, and 1:1 assessment provided with medication administration. Q15min checks continue for pt. safety. Response: Pt was asking for bedding at change of shift and was assisted with making her bed. Pt has delusions stating "The doctors are downstairs partying and getting drunk and they need me to come down there so they can watch me, Im going to need some cuddling when I get there and they're going to pay me all the money they owe me for doing this." Pt is confused. Pt c/o pain at HS med pass and had tylenol and flexeril w/HS meds. She woke later and continues to complain of pain and not able to sleep. pt was given prn dilaudid and tylenol and assisted with making her bed to get back in bed. Plan: Crisis intervention, stabilization on medications. Assess for response to medications and possible side effects.
[2022-03-13] MEDS: levoTHYROXINE 100mcg tablet PO SCH (07:57)
[2022-03-13] MEDS: docusate sod 100mg capsule PO SCH ×2 (07:57→19:45)
[2022-03-13] MEDS: loratadine 10mg tablet PO SCH (07:57)
[2022-03-13] MEDS: clonazePAM 1mg tablet PO SCH ×2 (07:57→12:01)
[2022-03-13] MEDS: famotidine 20mg tablet PO SCH (07:57)
[2022-03-13] MEDS: fluticasone nasal spray 16GM bottle NS SCH (07:58)
[2022-03-13] MEDS: CYCLOSPORINE RIGHTEYE SCH ×2 (07:58→19:46)
[2022-03-13] MEDS: ESCITALOPRAM OXALATE 5 MG TABLET PO SCH (07:58)
[2022-03-13 08:00] VITALS: BP 104/62
--- NOTE | 2022-03-13 08:04 | NUR ---
Late Entry: Pt seen on 03/12/22 @ 1400. Wound care in for follow up to evaluate spinal incision following staple removal by nursing. The pt is lying in bed in no apparent acute distress. Greeted and explained intent, agreeable to skin assessment. The spinal incision is well approximated dry hyperpigmented skin with normal for skin surrounding, no induration nor erythema noted. The remainder of her skin appears to be free of breakdown. The pt. requested a "good lotion" for dry skin that was provided. Report given to the primary nurse. Addendum: 03/13/22 at 0805 by Natalie Burch LVN Amended: Links added.
--- NOTE | 2022-03-13 13:35 | NUR ---
[facility] INTERVIEW WED (03/14/22) THIAGO Pacheco Addendum: 03/13/22 at 1339 by Bharti Paredes Manuel will be interviewing today instead. THIAGO Pacheco
[2022-03-13] MEDS: cyclobenzaprine 10mg tablet PO PRN (14:14)
[2022-03-13] MEDS: HYDROmorphone 2mg tablet PO PRN (14:15)
--- NOTE | 2022-03-13 16:06 | NUR ---
Nursing Note: Marine Problem: The patient presented in the ER after she took an overdose of Seroquel. She was having obsessional behaviors and thoughts. Her thought process was tangential and confused. She is postop spinal reconstructive surgery and has a large surgical incision with intact jodi. She has been having urinary retention and has an indwelling Aldrich catheter. Intervention: Reach Lift Truck Driver continues to provide pt. with a safe and therapeutic environment, clear communication, active listening and positive encouragement. Pt. encouraged to participate on unit and in group therapy, and 1:1 assessment provided with medication administration. Q15min checks continue for pt. safety. Response: Pt. denies SI, HI, A/VH, she has spent more time in her room today isolating from others. Pt. found to be paranoid, she is whispering today when spoken too, and approached this director underwriter sales requesting a private room to make calls, I cant trust my roommate Pt. ate her meals in the dining room, she sits with other cohorts but doesnt engage socially with others. Pt. has good hygiene and is wearing street clothes. She takes her meds without hesitancy and doesnt appear to be responding to IS. Pt. c/o 10/20 back pain and muscle tension; PRN Dilaudid and Flexarill given. Plan: Crisis intervention, stabilization on medications. Assess for response to medications and possible side effects.
[2022-03-13] MEDS: albuterol 2.5 MG/3 ML nebule NEB PRN (16:23)
[2022-03-13] MEDS: QUEtiapine 25mg tablet PO PRN (19:11)
[2022-03-13] MEDS: acetaminophen 325mg tablet PO PRN (19:11)
[2022-03-13] MEDS: traZODone 150mg tablet PO SCH (19:45)
[2022-03-13] MEDS: QUEtiapine 25mg tablet PO SCH (19:45)
[2022-03-13] MEDS: clonazePAM 0.5mg tablet PO SCH (19:46)
[2022-03-13] MEDS: benzocaine/menthol oral lozeng 1 EACH BOX MM PRN (19:47)
[2022-03-13 20:17] VITALS: BP 107/67
[2022-03-13] MEDS: polyvinyl alcohol ophthalmic drops 15ml bottle EACHEYE PRN (20:20)
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
[2022-03-14] MEDS: QUEtiapine 25mg tablet PO PRN ×3 (04:30→21:36)
[2022-03-14] MEDS: CYCLOSPORINE RIGHTEYE SCH ×2 (07:40→19:58)
[2022-03-14] MEDS: fluticasone nasal spray 16GM bottle NS SCH (07:40)
[2022-03-14] MEDS: docusate sod 100mg capsule PO SCH ×2 (07:41→19:58)
[2022-03-14] MEDS: levoTHYROXINE 100mcg tablet PO SCH (07:41)
[2022-03-14] MEDS: ESCITALOPRAM OXALATE 5 MG TABLET PO SCH (07:41)
[2022-03-14] MEDS: loratadine 10mg tablet PO SCH (07:41)
[2022-03-14] MEDS: famotidine 20mg tablet PO SCH (07:41)
[2022-03-14] MEDS: clonazePAM 0.5mg tablet PO SCH ×2 (07:42→19:59)
[2022-03-14 08:00] VITALS: BP 118/76
--- NOTE | 2022-03-14 10:41 | NUR ---
Pt. attended group today. We talked about Communication today focusing on how to utilize I messages. This Beauty Consultant shared how to create an I message and then we practiced writing them on the board. We then did an art expression exercise called holding on and letting go with the objective of identifying and releasing stressors. Pt. engaged appropriately in the group. She enjoyed the art expression part and engaged well with her peers. She seems to be connecting well with two of her peers. She was alert and oriented X 4. Her thought content and thought process appeared WNL. She was quiet in the group but listened intently and was open and friendly. Her demeanor was calm, compliant and pleasant. Her mood appeared good with a restricted affect Verna New LCSW
[2022-03-14] MEDS: clonazePAM 1mg tablet PO SCH (11:59)
--- NOTE | 2022-03-14 12:15 | NUR ---
ACCEPTED AT [facility] PENDING BED AVAILABILITY THIAGO Pacheco
--- NOTE | 2022-03-14 15:44 | NUR ---
Nursing Note: Marine Problem: The patient presented in the ER after she took an overdose of Seroquel. She was having obsessional behaviors and thoughts. Her thought process was tangential and confused. She is postop spinal reconstructive surgery and has a large surgical incision with intact jodi. She has been having urinary retention and has an indwelling Aldrich catheter. Intervention: Advertising Account Executive continues to provide pt. with a safe and therapeutic environment, clear communication, active listening and positive encouragement. Pt. encouraged to participate on unit and in group therapy, and 1:1 assessment provided with medication administration. Q15min checks continue for pt. safety. Response: Pt. denies SI, HI, A/VH her DC plans is to stay with Mat, his , and kids. She started her morning piling her items in her basket, and took her roommates belongings. This fha underwriter spoke to pt. and found her to be paranoid re her roommate. She reported I cant talk with her in here her eyes darting and she was speaking in a whispered tone. She isolated to her room most of the shift. Pt. did eat all meals in the dining room where she keeps to herself and does not engage cohorts socially. Pt. has good hygiene and is wearing her street clothes and back brace. Plan: Crisis intervention, stabilization on medications. Assess for response to medications and possible side effects.
[2022-03-14] MEDS: albuterol 2.5 MG/3 ML nebule NEB PRN (15:45)
[2022-03-14 19:18] VITALS: BP 130/77
[2022-03-14] MEDS: cyclobenzaprine 10mg tablet PO PRN (19:58)
[2022-03-14] MEDS: benzocaine/menthol oral lozeng 1 EACH BOX MM PRN (19:58)
[2022-03-14] MEDS: HYDROmorphone 2mg tablet PO PRN (19:59)
[2022-03-14] MEDS: QUEtiapine 25mg tablet PO SCH (19:59)
[2022-03-14] MEDS: traZODone 150mg tablet PO SCH (19:59)
[2022-03-14] MEDS: polyvinyl alcohol ophthalmic drops 15ml bottle EACHEYE PRN (19:59)
[2022-03-14] MEDS: traZODone 50mg tablet PO PRN (21:36)
--- NOTE | 2022-03-15 01:56 | NUR ---
Nursing Note: Marine Problem: The patient presented in the ER after she took an overdose of Seroquel. She was having obsessional behaviors and thoughts. Her thought process was tangential and confused. She is postop spinal reconstructive surgery and has a large surgical incision with intact jodi. She has been having urinary retention and has an indwelling Aldrich catheter. Intervention: Channel Specialist continues to provide pt. with a safe and therapeutic environment, clear communication, active listening and positive encouragement. Pt. encouraged to participate on unit and in group therapy, and 1:1 assessment provided with medication administration. Q15min checks continue for pt. safety. Response: Pt was in her room at change of shift resting in bed. She came out prior to HS med pass and reported pain and anxiety and asked staff "Can I just have all of my meds early?' Pt returned to her room and during assessment pt reports "my pain is 8 and its going up" and reports her anxiety is also 8. Pt begins to cry stating "Jessica been asking people for meds all day and nobody wants to give me anything I need dilaudid!" pt was assured that we would be bringing her medications. Pt was provided with prn flexeral, diluadid for pain, prn eye drops for dry eyes, prn throat lozenge, and went to sleep then woke an hour later c/o anxiety and not being able to sleep. Pt was given prn trazodone and seroquel and went back to bed. Pt woke again about 4.5 hours later stating she was keeping her roommate awake and wanted to sit up in the chair and sat for a while before returning to bed. Plan: Crisis intervention, stabilization on medications. Assess for response to medications and possible side effects.
[2022-03-15 07:04] VITALS: BP 104/67
[2022-03-15] MEDS: clonazePAM 0.5mg tablet PO SCH ×2 (08:05→20:27)
[2022-03-15] MEDS: ESCITALOPRAM OXALATE 5 MG TABLET PO SCH (08:05)
[2022-03-15] MEDS: levoTHYROXINE 100mcg tablet PO SCH (08:06)
[2022-03-15] MEDS: QUEtiapine 25mg tablet PO SCH ×2 (08:06→13:02)
[2022-03-15] MEDS: loratadine 10mg tablet PO SCH (08:06)
[2022-03-15] MEDS: docusate sod 100mg capsule PO SCH ×2 (08:06→20:26)
[2022-03-15] MEDS: CYCLOSPORINE RIGHTEYE SCH ×2 (08:07→20:27)
[2022-03-15] MEDS: famotidine 20mg tablet PO SCH (08:08)
[2022-03-15] MEDS: fluticasone nasal spray 16GM bottle NS SCH (08:12)
[2022-03-15] MEDS: albuterol 2.5 MG/3 ML nebule NEB PRN (10:26)
[2022-03-15] MEDS: clonazePAM 1mg tablet PO SCH (13:02)
[2022-03-15] MEDS: cyclobenzaprine 10mg tablet PO PRN (16:03)
[2022-03-15] MEDS: HYDROmorphone 2mg tablet PO PRN (16:04)
--- NOTE | 2022-03-15 16:44 | NUR ---
Nursing Progress Note: Problem: The patient presented in the ER after she took an overdose of Seroquel. She was having obsessional behaviors and thoughts. Her thought process was tangential and confused. She is postop spinal reconstructive surgery and has a large surgical incision with intact jodi. She has been having urinary retention and has an indwelling Aldrich catheter. Intervention: Clinical Trials Systems Administrator continues to provide pt. with a safe and therapeutic environment, clear communication, active listening and positive encouragement. Pt. encouraged to participate on unit and in group therapy, and 1:1 assessment provided with medication administration. Q15min checks continue for pt. safety. Response: Patient up for breakfast this morning. She continues to appear paranoid and speaks in a low voice as if everything is a secret. She was compliant with all medications. Patient is clean with good hygiene, and she wears her own street clothes. After breakfast she mostly isolated in her room, but after lunch she was more personable. Patient says she is thankful for everyone here that has treated her well and with compassion. She seems less confused than in the morning, and has also been smiling more. Plan: Crisis intervention, stabilization on medications. Assess for response to medications and possible side effects.
[2022-03-15 19:00] VITALS: BP 124/71
[2022-03-15] MEDS: traZODone 150mg tablet PO SCH (20:26)
[2022-03-15] MEDS: quetiapine 100mg tablet PO SCH (20:27)
[2022-03-15] MEDS: polyvinyl alcohol ophthalmic drops 15ml bottle EACHEYE PRN (20:28)
--- NOTE | 2022-03-16 01:38 | NUR ---
Nursing Note: Marine Problem: The patient presented in the ER after she took an overdose of Seroquel. She was having obsessional behaviors and thoughts. Her thought process was tangential and confused. She is postop spinal reconstructive surgery and has a large surgical incision with intact jodi. She has been having urinary retention and has an indwelling Aldrich catheter. Intervention: Health Companion continues to provide pt. with a safe and therapeutic environment, clear communication, active listening and positive encouragement. Pt. encouraged to participate on unit and in group therapy, and 1:1 assessment provided with medication administration. Q15min checks continue for pt. safety. Response: Patient lying in bed at shift change. patient denies A/V/H SI HI. Pt talked in low murmur, was very hard to understand. Patient reminded that snack and med was at 8pm. Patient brought blankets due to feeling cold and shivering. patient asked if she could have PRN Dilaudid. it was explained to the pt that she gets Dilaudid 3X a day and she had recently received a dose of medication. patient then wanted to know where her antibiotic was for UTI. It was explained to the patient that she had a UTI on the 07 of March and already taken the full cycle for that medication. patient declared that she had spoken to DR Rod and he had continued it. This nurse investigated and determined that DR Rod had not been in today or the last few days but Dr Silva had. Patient then asked why she was not getting a breathing treatment, that she and Dr Rod had decided that she needs her Albuterol as it helps her sleep better and relaxes her. Patient took evening meds w/o complications and was able to sleep a short while only waking up just to go back to sleep again. Plan: Crisis intervention, stabilization on medications. Assess for response to medications and possible side effects.
[2022-03-16] MEDS: acetaminophen 325mg tablet PO PRN ×3 (03:40→20:28)
[2022-03-16 08:00] VITALS: BP 102/62
[2022-03-16] MEDS: loratadine 10mg tablet PO SCH (08:01)
[2022-03-16] MEDS: ESCITALOPRAM OXALATE 5 MG TABLET PO SCH (08:01)
[2022-03-16] MEDS: QUEtiapine 25mg tablet PO SCH ×2 (08:02→12:42)
[2022-03-16] MEDS: famotidine 20mg tablet PO SCH (08:02)
[2022-03-16] MEDS: docusate sod 100mg capsule PO SCH ×2 (08:02→20:28)
[2022-03-16] MEDS: clonazePAM 0.5mg tablet PO SCH ×3 (08:02→20:28)
[2022-03-16] MEDS: levoTHYROXINE 100mcg tablet PO SCH (08:02)
[2022-03-16] MEDS: fluticasone nasal spray 16GM bottle NS SCH (08:03)
[2022-03-16] MEDS: CYCLOSPORINE RIGHTEYE SCH ×2 (08:03→20:30)
[2022-03-16] MEDS: cyclobenzaprine 10mg tablet PO PRN (08:53)
[2022-03-16] MEDS: HYDROmorphone 2mg tablet PO PRN (08:56)
--- NOTE | 2022-03-16 16:02 | NUR ---
Nursing Note: Marine Problem: The patient presented in the ER after she took an overdose of Seroquel. She was having obsessional behaviors and thoughts. Her thought process was tangential and confused. She is postop spinal reconstructive surgery and has a large surgical incision with intact jodi. She was having urinary retention and had an indwelling Aldrich catheter. Intervention: City Magistrate continues to provide pt. with a safe and therapeutic environment, clear communication, active listening and positive encouragement. Pt. encouraged to participate on unit and in group therapy, and 1:1 assessment provided with medication administration. Q15min checks continue for pt. safety. Response: Pt. denies SI, HI, A/VH her DC plans is to have Trey pick me up and taking to me to look at assisted living place Pt. presents as disorganized and has been pilling her belongings up in various areas in her room. Pt. c/o 7/10 back pain; PRN Dilaudid and muscle relaxer give, incision on her back is closed and shows no s/sx of infection, and her back brace remains on while OOB. Pt. ate her meals in the main dining room with valeriano, but prefers to sit alone at table, and she was not observed socializing with cohorts. Pt. spent most of the day in her room resting or sitting in a chair near the window. Pt. takes her meds without hesitancy. She is pleasant when engaged, her hygiene is good and she is wearing street clothes. Plan: Crisis intervention, stabilization on medications. Assess for response to medications and possible side effects.
[2022-03-16 20:00] VITALS: BP 118/79
[2022-03-16] MEDS: quetiapine 100mg tablet PO SCH (20:27)
[2022-03-16] MEDS: traZODone 150mg tablet PO SCH (20:28)
[2022-03-16] MEDS: polyvinyl alcohol ophthalmic drops 15ml bottle EACHEYE PRN (20:29)
[2022-03-16] MEDS ORDERED: HALLS - SOOTHE MENTHOL 1.8 MG cough drop LOZENGE MM PRN (20:45)
[2022-03-17] MEDS: acetaminophen 325mg tablet PO PRN ×3 (00:30→22:08)
--- NOTE | 2022-03-17 01:47 | NUR ---
Nursing Note: Marine Problem: The patient presented in the ER after she took an overdose of Seroquel. She was having obsessional behaviors and thoughts. Her thought process was tangential and confused. She is postop spinal reconstructive surgery and has a large surgical incision with intact jodi. She has been having urinary retention and has an indwelling Aldrich catheter. Intervention: Patent Engineer continues to provide pt. with a safe and therapeutic environment, clear communication, active listening and positive encouragement. Pt. encouraged to participate on unit and in group therapy, and 1:1 assessment provided with medication administration. Q15min checks continue for pt. safety. Response: Patient lying in room at shift change. Patient asked about taking a shower and was told she needed to talk to the tech so she could be put on a list. Patient 1:1, Pt denies A/V/H, SI/HI. Patient mostly isolates to room. Patient talks in a low voice that comes out in mumbles. Patient requested Tylenol at bedtime for back pain. Patient took evening meds w/o complications and went to sleep shortly after. Plan: Crisis intervention, stabilization on medications. Assess for response to medications and possible side effects.
[2022-03-17] MEDS: levoTHYROXINE 100mcg tablet PO SCH (07:35)
[2022-03-17] MEDS: QUEtiapine 25mg tablet PO SCH ×2 (07:37→13:00)
[2022-03-17] MEDS: famotidine 20mg tablet PO SCH (07:37)
[2022-03-17 08:00] VITALS: BP 98/62
[2022-03-17] MEDS: docusate sod 100mg capsule PO SCH ×2 (08:57→21:33)
[2022-03-17] MEDS: ESCITALOPRAM OXALATE 5 MG TABLET PO SCH (08:57)
[2022-03-17] MEDS: CYCLOSPORINE RIGHTEYE SCH ×2 (08:57→20:00)
[2022-03-17] MEDS: clonazePAM 0.5mg tablet PO SCH ×3 (08:57→21:33)
[2022-03-17] MEDS: loratadine 10mg tablet PO SCH (08:57)
[2022-03-17] MEDS: fluticasone nasal spray 16GM bottle NS SCH (08:58)
[2022-03-17] MEDS: HYDROmorphone 2mg tablet PO PRN (16:53)
[2022-03-17] MEDS: polyvinyl alcohol ophthalmic drops 15ml bottle EACHEYE PRN (16:55)
--- NOTE | 2022-03-17 17:37 | NUR ---
Nursing Progress Note: Problem : The patient presented in the ER after she took an overdose of Seroquel. She was having obsessional behaviors and thoughts. Her thought process was tangential and confused. She is postop spinal reconstructive surgery and has a large surgical incision with intact jodi. She was having urinary retention and had an indwelling Aldrich catheter. Interventions : Introduced self and established rapport, ensured contract for safety, maintained a safe and supportive environment, provided clear and simple instructions, provided active listening and positive encouragement, and maintained Q15 min safety checks. Response : Received pt. sleeping in bed at the beginning of the shift, she was awoken to attend breakfast in the Group Room, however refused to attend until approximately half of her peers had left. Afterwards, pt. stated in what appeared to be a somewhat paranoid delusional manner, "Half of them were there, so I just gave them the look." She continues to present as withdrawn and is not observed to be interacting with with others. Pt. did receive a visit from her significant other and visit went well. Afterwards, pt. required assistance with changing her bed and she then napped intermittently throughout the day. 1:1 was completed at bedside, pt. presents as cooperative and somewhat anxious. She denies any S/I, H/I, A/V/RICK, and no further delusional statements were made. Pt. presents with some disorganization at times and has some difficulty making her needs known, but she is able to be redirected. Pt. continues to wear her back brace when out of bed. Plan : Per Dr. Silva, pt. continues to require a safe and supportive environment, she will discharge soon if she continues to do well.
[2022-03-17 20:00] VITALS: BP 125/80
[2022-03-17] MEDS: quetiapine 100mg tablet PO SCH (21:32)
[2022-03-17] MEDS: traZODone 150mg tablet PO SCH (21:33)
[2022-03-17] MEDS: traZODone 50mg tablet PO PRN (22:08)
[2022-03-17] MEDS: cyclobenzaprine 10mg tablet PO PRN (22:09)
[2022-03-18] MEDS: HYDROmorphone 2mg tablet PO PRN (00:33)
--- NOTE | 2022-03-18 02:04 | NUR ---
Patient continues to complain of inability to sleep. This functional tester typewriters called JENNIFER Manning. Orders for Trazadone 50 mg PO now were taken.
[2022-03-18] MEDS ORDERED: traZODone 50mg tablet PO ONE (02:05)
--- NOTE | 2022-03-18 04:17 | NUR ---
Nursing Note: Problem: The patient presented in the ER after she took an overdose of Seroquel. She was having obsessional behaviors and thoughts. Her thought process was tangential and confused. She is postop spinal reconstructive surgery and has a large surgical incision with intact jodi. She has been having urinary retention and has an indwelling Aldrich catheter. Intervention: Family Mediator continues to provide pt. with a safe and therapeutic environment, clear communication, active listening and positive encouragement. Pt. encouraged to participate on unit and in group therapy, and 1:1 assessment provided with medication administration. Q15min checks continue for pt. safety. Response: The patient primarily isolates in her room following shift change. She is fairly cooperative, somewhat needy. Patient tells this proposal writer that she is happy to be going home tomorrow. The patient describes some minor visual hallucinations. She denies audible hallucinations. Patient denies H/I or S/I. Patient did complain of problems sleeping and her back pain, both were treated accordingly. Patient was reasonibly cooperative, much better than her norm on this hospitalization. Plan: Crisis intervention, stabilization on medications. Assess for response to medications and possible side effects.
--- NOTE | 2022-03-18 07:03 | NUR ---
Reassessment: Pt continues on Regular diet w/ mostly 75-100% intake of meals meeting est nutrient needs at this time. LBM 03/17 receiving routine colace. No nutrition intervention implemented at this time, will continue to monitor. Recommendations: 1) Continue regular diet 2) Routine bowel care 3) Weekly scaled weights Addendum: 03/18/22 at [address] Amended: Links added.
[2022-03-18] MEDS: ESCITALOPRAM OXALATE 5 MG TABLET PO SCH (07:20)
[2022-03-18] MEDS: clonazePAM 0.5mg tablet PO SCH (07:20)
[2022-03-18] MEDS: CYCLOSPORINE RIGHTEYE SCH (07:21)
[2022-03-18] MEDS: docusate sod 100mg capsule PO SCH (07:22)
[2022-03-18] MEDS: famotidine 20mg tablet PO SCH (07:22)
[2022-03-18] MEDS: loratadine 10mg tablet PO SCH (07:23)
[2022-03-18] MEDS: QUEtiapine 25mg tablet PO SCH (07:23)
[2022-03-18] MEDS: levoTHYROXINE 100mcg tablet PO SCH (07:23)
[2022-03-18] MEDS: fluticasone nasal spray 16GM bottle NS SCH (07:23)
[2022-03-18 07:33] VITALS: BP 108/78
[2022-03-18] MEDS ORDERED: ACET-1131 PO (08:13)
[2022-03-18] MEDS ORDERED: CLON1TAB95 PO (08:13)
[2022-03-18] MEDS ORDERED: DOCU100C40 PO (08:13)
[2022-03-18] MEDS ORDERED: ESCI20TA39 PO (08:13)
[2022-03-18] MEDS ORDERED: QUET300T20 PO (08:18)
[2022-03-18] MEDS ORDERED: TRAZ150T78 PO (08:18)
[2022-03-18] MEDS ORDERED: QUET50TA24 PO (08:19)
[2022-03-18] MEDS ORDERED: TRAZ-251 PO (08:19)
--- NOTE | 2022-03-18 11:30 | NUR ---
DISCHARGE NOTE Patient was discharged home at 1100. Pt left with all personal belongings and was picked up by her significant other. Pt was A&O x4. Pt's discharge instructions were reviewed with patient and she verbalized understanding. Pt was escorted to lobby with EDWIGE Perez.
== END 2022-03-18 11:01 | disposition home or self-care (01) | DRG 885 ==
LOC: ER 21:48 → ED HOLD 03-05 16:00 → ADULT MH 03-05 17:39
PROVIDERS: ADMIT Psychiatry & Neurology Psychiatry; ATTEND Psychiatry & Neurology Psychiatry
DX: F39 Unspecified mood [affective] disorder (principal); F05 Delirium due to known physiological condition; T43.591A Poisoning by other antipsychotics and neuroleptics, accidental (unintentional), initial encounter; N39.0 Urinary tract infection, site not specified; F29 Unspecified psychosis not due to a substance or known physiological condition; Z20.822 Contact with and (suspected) exposure to COVID-19; R09.02 Hypoxemia; F41.9 Anxiety disorder, unspecified; M54.9 Dorsalgia, unspecified; E03.9 Hypothyroidism, unspecified; M54.2 Cervicalgia; K59.00 Constipation, unspecified; J44.9 Chronic obstructive pulmonary disease, unspecified; K21.9 Gastro-esophageal reflux disease without esophagitis; F31.9 Bipolar disorder, unspecified; G89.29 Other chronic pain; D64.9 Anemia, unspecified; B96.1 Klebsiella pneumoniae [K. pneumoniae] as the cause of diseases classified elsewhere; Z82.49 Family history of ischemic heart disease and other diseases of the circulatory system; Z87.891 Personal history of nicotine dependence; Z91.51 Personal history of suicidal behavior; Z88.5 Allergy status to narcotic agent; Z88.8 Allergy status to other drugs, medicaments and biological substances; Y92.098 Other place in other non-institutional residence as the place of occurrence of the external cause; Z79.899 Other long term (current) drug therapy; Z81.8 Family history of other mental and behavioral disorders
CPT/HCPCS: 36415; 80053; 80061; 80305; 80329; 81001; 82607; 83036; 84443; 85025; 85027; 87077; 87081; 87088; 87186; 87635; 93005; 94640; 94760; 99285; A4314; A5200; C9803

== ENCOUNTER 2023-05-27 12:15 | Inpatient (IN) | payer MEDICARE, MEDICAID ==
[~2023-05-27] VITALS: Ht 177.8 cm; Wt 62.7 kg
[~2023-05-27 12:15] MED LIST changes: -ACET-1025 PO; +ACET-1131 PO; -ADV50100 INH; -ALBU2.5V7 NEB; +ALBUTEROL 90 MCG INH; +BACL-11 PO; +BUDE10.2 INH; -BUPR1FIL20 SL; -BUPR2TAB11 SL; -CHLO473M2 PO; -CLON1TAB12 PO; +CLON1TAB95 PO; -CYCL-394 PO; +CYCL1DRO10 RIGHTEYE; -DICL75TA6 PO; +FAMO-128 PO; -FER325T PO; +FLUT16SP2 BOTHNARES; -FLUT16SP20 BOTHNARES; -LEVO100C4 PO; -LIDOCAINE 4% TOP; +MDI INH; -POLY17PO10 PO; -QUET25TA PO; +QUET300T20 PO; -QUET400T PO; +QUET50TA24 PO; +TRAZ-251 PO
[2023-05-27] MEDS ORDERED: methylPREDNISolone sod succ 125mg/2ml vial IV ONE (13:20)
[2023-05-27] MEDS ORDERED: ipratropium 0.5 MG/2.5ML nebule IH ONE (13:20)
[2023-05-27] MEDS: albuterol 2.5 MG/3 ML nebule CONTNEB PRN (13:45)
[2023-05-27 13:51] VITALS: PULSE 85; RESP 14; O2SAT 94
[2023-05-27] MEDS ORDERED: normal saline 1000ML IV soln IVB ONE ×2 (13:55→15:10)
[2023-05-27] MEDS ORDERED: piperacillin/tazo 3.375gm/50ml 50 ML IV ONE (14:10)
[2023-05-27 14:15] LABS: BASOPHILS % (AUTO) 0.2 % (0-1); EOSINOPHILS % (AUTO) 0.1 % (0-6); HEMATOCRIT 33.5 % (35.0-45.0); HEMOGLOBIN 11.3 g/dl (12.0-16.0); LYMPHOCYTES # (AUTO) 0.7 X10'3 (1.1-4.8); LYMPHOCYTES % (AUTO) 5.5 % (21-51); MEAN CORPUSCULAR HEMOGLOBIN 32.3 PG (27.0-31.0); MEAN CORPUSCULAR HGB CONC 33.6 g/dL (33.0-36.5); MEAN PLATELET VOLUME 10.2 FL (7.4-10.4); MONOCYTES # (AUTO) 0.3 X10'3 (0-0.9); MONOCYTES % (AUTO) 2.3 % (2-12); NEUTROPHILS # (AUTO) 11.7 X10'3 (1.8-7.7); NEUTROPHILS % (AUTO) 91.9 % (42-75); PLATELET COUNT 203 X10'3 (140-440); RED BLOOD COUNT 3.49 X10'6 (4.20-5.60); RED CELL DISTRIBUTION WIDTH 13.1 % (11.5-14.5); WHITE BLOOD COUNT 12.7 X10'3 (4.5-11.0)
[2023-05-27 14:26] VITALS: PULSE 88; RESP 20; O2SAT 99
[2023-05-27 14:27] LABS: ALANINE AMINOTRANSFERASE 196 U/L (12-78); ALBUMIN 2.6 G/DL (3.4-5.0); ALBUMIN/GLOBULIN RATIO 0.6 (1.1-1.5); ALKALINE PHOSPHATASE 113 IU/L (46-116); ANION GAP 10 (8-16); ASPARTATE AMINO TRANSFERASE 82 U/L (10-37); BILIRUBIN,TOTAL 0.9 MG/DL (0.1-1.0); BLOOD UREA NITROGEN 33 MG/DL (7-18); BUN/CREATININE RATIO 24.1 (10.0-20.0); CALCIUM 9.2 MG/DL (8.5-10.1); CHLORIDE 98 MMOL/L (99-107); CREATININE 1.37 MG/DL (0.40-0.90); GLUCOSE 112 MG/DL (70-104); POTASSIUM 4.2 MMOL/L (3.5-5.1); SODIUM 130 MMOL/L (135-145); TOTAL CARBON DIOXIDE 22.5 MMOL/L (24-32); TOTAL PROTEIN 6.7 G/DL (6.4-8.2); eCRCL 45 ML/MIN; eGFR 40 ML/MIN
[2023-05-27 14:37] LABS: PRO BRAIN NATRIURETIC PEPTIDE 14027 PG/ML (0-125)
[2023-05-27 14:47] LABS: PLATELET ESTIMATE NORMAL; TOTAL CELLS COUNTED 100
--- NOTE | 2023-05-27 16:07 | NUR ---
UNIQUE CaLLED BACK, WILL BE DOWN SHORTLY
[2023-05-27] MEDS ORDERED: mag hydrox/Alum hydrox/simeth 30ml oral suspension PO PRN (16:55)
[2023-05-27] MEDS ORDERED: potassium Cl 40MEQ/1/2NS 520ml 520 ML IV PRN (16:55)
[2023-05-27] MEDS ORDERED: magnesium hydroxide 30ml (MOM) UD suspension PO PRN (16:55)
[2023-05-27] MEDS ORDERED: ondansetron/PF 4mg/2ml inj IV PRN (16:55)
[2023-05-27] MEDS ORDERED: morphine 2 MG/ML inj. syringe IV PRN ×2 (16:55)
[2023-05-27] MEDS ORDERED: magnesium 2GM in 50ml NS 50 ML IV PRN (16:55)
[2023-05-27] MEDS ORDERED: potassium Cl 20 mEq SR tablet PO PRN ×2 (16:55)
[2023-05-27] MEDS ORDERED: acetaminophen 325mg tablet PO PRN ×2 (16:55)
[2023-05-27] MEDS ORDERED: magnesium 4gm in 100ml NS 100 ML IV PRN (16:55)
[2023-05-27] MEDS: normal saline 1000ml 1,000 ML IV SCH (17:33)
[2023-05-27 17:49] VITALS: PULSE 84; RESP 22; O2SAT 96
[2023-05-27 17:54] VITALS: PULSE 84; RESP 16
[2023-05-27] MEDS ORDERED: iohexol 350MG/ML 100ml bottle IV ONE (19:19)
[2023-05-27 19:59] VITALS: PULSE 81; RESP 16; O2SAT 91
[2023-05-27] MEDS: albuterol 2.5 MG/3 ML nebule NEB PRN (19:59)
[2023-05-27] MEDS: K and/or MAG REPLACEMENT MC SCH (20:00)
[2023-05-27 20:09] VITALS: PULSE 83; RESP 16
[2023-05-27] MEDS: methylPREDNISolone sod succ/PF 40mg inj. IV SCH (20:30)
[2023-05-27] MEDS: docusate sod 100mg capsule PO SCH (20:31)
[2023-05-27] MEDS: enoxaparin 40mg/0.4ml syringe SQ SCH (20:31)
[2023-05-27] MEDS ORDERED: CLON1TAB96 PO (22:23)
[2023-05-27] MEDS ORDERED: CLON2TAB11 PO (22:24)
[2023-05-27] MEDS ORDERED: BUPR-317 PO (22:25)
[2023-05-27] MEDS ORDERED: ACET-2778 PO (22:26)
[2023-05-27] MEDS ORDERED: ESCI20TA PO (22:27)
[2023-05-27] MEDS ORDERED: DOCU-148 PO (22:27)
[2023-05-27] MEDS ORDERED: LEVO112T5 PO (22:29)
[2023-05-27] MEDS ORDERED: CETI10TA14 PO (22:30)
[2023-05-27] MEDS ORDERED: QUET25TA36 PO (22:32)
[2023-05-27] MEDS ORDERED: TRAZ-256 PO (22:34)
[2023-05-27] MEDS ORDERED: escitalopram 20mg tablet PO ONE (23:55)
[2023-05-28] VITALS (17 sets, daily range): BP systolic 92–104; BP diastolic 62–68; PULSE 62–87; RESP 16–24; TEMP 96.9–98.2; O2SAT 86–97
[2023-05-28] MEDS: traZODone 50mg tablet PO ONE ×2 (00:43→01:27)
[2023-05-28] MEDS ORDERED: ESCITALOPRAM 10 mg tablet 10 MG TABLET PO ONE (00:45)
[2023-05-28] MEDS: piperacillin/tazo 4.5gm/100ml 100 ML IV SCH ×3 (00:52→16:35)
--- NOTE | 2023-05-28 00:59 | NUR ---
PT REQUESTING SEROQUEL, NORCO, KLONOPIN DESPITE BP 87/58. PT HAS HAD SOFT BLOOD PRESSURES THROUGHOUT DAY. THIS RN EDUCATED PT THAT IT WOULD NOT BE SAFE TO ADMINISTER THESE MEDICATIONS WITH HER BLOOD PRESSURE SO LOW. PT BECOMES TEARFUL, INSISTING THAT HER BLOOD PRESSURE IS ALWAYS LOW. REINFORCED TO PT THAT THIS LATEX FOAM WORKER IS UNCOMFORTABLE GIVING SEDATING MEDICATIONS AT THIS TIME. TYLENOL ADMINISTERED FOR PAIN.
[2023-05-28] MEDS: albuterol 2.5 MG/3 ML nebule NEB PRN ×2 (01:03→05:04)
--- NOTE | 2023-05-28 01:04 | NUR ---
ED BED 7--BP SOFT, PT TEARFUL WANTING SEROQUEL [id number] PAGE SENT TO DR SANCHES RE BP AND MEDS
--- NOTE | 2023-05-28 01:12 | NUR ---
SPOKE WITH DR SANCHES REGARDING PTS BP AND TRAZODONE. PER MD, INCREASE MAINTENANCE FLUIDS TO 125 MLS/HR AND OK TO GIVE 100 OF TRAZODONE. NOTIFIED PT OF THIS WHO IMMEDIATELY BECAME EMOTIONAL WANTING TO KNOW ABOUT NORCO AND BACLOFEN AND TRAMADOL WELL.
[2023-05-28] MEDS: normal saline 1000ml 1,000 ML IV SCH ×3 (01:15→18:35)
[2023-05-28 04:42] LABS: RED CELL DISTRIBUTION WIDTH 13.5 % (11.5-14.5)
[2023-05-28 04:44] LABS: BASOPHILS % (AUTO) 0 % (0-1); EOSINOPHILS % (AUTO) 0 % (0-6); HEMOGLOBIN 9.2 g/dl (12.0-16.0); LYMPHOCYTES # (AUTO) 0.2 X10'3 (1.1-4.8); LYMPHOCYTES % (AUTO) 1.6 % (21-51); MEAN CORPUSCULAR HEMOGLOBIN 32.5 PG (27.0-31.0); MEAN CORPUSCULAR VOLUME 95.6 FL (78-98); MEAN PLATELET VOLUME 9.9 FL (7.4-10.4); MONOCYTES # (AUTO) 0.2 X10'3 (0-0.9); MONOCYTES % (AUTO) 1.4 % (2-12); NEUTROPHILS # (AUTO) 14.8 X10'3 (1.8-7.7); PLATELET COUNT 170 X10'3 (140-440); RED BLOOD COUNT 2.83 X10'6 (4.20-5.60); WHITE BLOOD COUNT 15.2 X10'3 (4.5-11.0)
[2023-05-28 04:54] LABS: ALANINE AMINOTRANSFERASE 139 U/L (12-78); ALBUMIN 2.1 G/DL (3.4-5.0); ALBUMIN/GLOBULIN RATIO 0.6 (1.1-1.5); ALKALINE PHOSPHATASE 96 IU/L (46-116); ANION GAP 10 (8-16); ASPARTATE AMINO TRANSFERASE 47 U/L (10-37); BILIRUBIN,TOTAL 0.5 MG/DL (0.1-1.0); BLOOD UREA NITROGEN 23 MG/DL (7-18); BUN/CREATININE RATIO 19.8 (10.0-20.0); CALCIUM 8.4 MG/DL (8.5-10.1); CHLORIDE 107 MMOL/L (99-107); CREATININE 1.16 MG/DL (0.40-0.90); GLUCOSE 175 MG/DL (70-104); MAGNESIUM 2.3 MG/DL (1.5-2.4); POTASSIUM 4.6 MMOL/L (3.5-5.1); SODIUM 138 MMOL/L (135-145); TOTAL CARBON DIOXIDE 21.5 MMOL/L (24-32); TOTAL PROTEIN 5.6 G/DL (6.4-8.2); eCRCL 53 ML/MIN; eGFR 48 ML/MIN
--- NOTE | 2023-05-28 06:51 | NUR ---
Received report from Isabel. Patient coming to 4th floor on hospital bed. Will assume care upon arrival.
--- NOTE | 2023-05-28 07:53 | NUR ---
Page to RESP: Pt in RM [address] ordered an ABG please, thank you!
[2023-05-28] MEDS: K and/or MAG REPLACEMENT MC SCH ×2 (08:00→20:00)
[2023-05-28 08:33] LABS: ABG BASE EXCESS -2.8 mmol/L (-2.0-2.0); ABG HCO3 20.9 mmol/L (22.0-26.0); ABG OXYGEN SATURATION 94.9 % (94-97); ABG PCO2 (T) 31.8 mmHg (32.0-45.0); ABG PH (T) 7.434 (7.350-7.450); ABG PO2 (T) 72.3 mmHg (75.0-100.0); ALLEN'S TEST POSITIVE; FCOHb 0.3 % (0.0-3.9); FHHb 5.1 % (0.0-5.0); FMetHb 0.3 % (0.0-1.5); FO2Hb 94.3 % (94-97); PATIENT TEMPERATURE 36.7; TOTAL HEMOGLOBIN 10.1 G/dl (12.0-16.0)
[2023-05-28] MEDS: ipratropium/albuterol 3ml nebule NEB PRN ×3 (08:42→21:33)
[2023-05-28] MEDS: docusate sod 100mg capsule PO SCH ×3 (09:26→20:44)
[2023-05-28] MEDS: methylPREDNISolone sod succ/PF 40mg inj. IV SCH ×2 (09:26→20:32)
[2023-05-28] MEDS ORDERED: sennosides 8.6mg tablet PO PRN (11:50)
[2023-05-28] MEDS: acetaminophen 325mg tablet PO SCH ×2 (13:00→20:44)
[2023-05-28] MEDS: clonazePAM 1mg tablet PO PRN (15:39)
[2023-05-28] MEDS: HYDROcodone/acetaminophen 10/325mg tab PO PRN ×2 (15:50→20:45)
--- NOTE | 2023-05-28 19:00 | NUR ---
received report from NINA Yang that has this patient. IV meds to be given by myself YEN.
[2023-05-28] MEDS ORDERED: traZODone 50mg tablet PO ONE (20:00)
[2023-05-28] MEDS: quetiapine 100mg tablet PO SCH (20:45)
[2023-05-28] MEDS: enoxaparin 40mg/0.4ml syringe SQ SCH (20:46)
[2023-05-28] MEDS: albuterol 2.5 MG/3 ML nebule CONTNEB PRN (21:59)
[2023-05-29] VITALS (10 sets, daily range): BP systolic 100–117; BP diastolic 64–75; PULSE 62–83; RESP 15–18; TEMP 97.4–98.4; O2SAT 87–95
[2023-05-29] MEDS: piperacillin/tazo 4.5gm/100ml 100 ML IV SCH ×4 (00:36→23:25)
[2023-05-29] MEDS: normal saline 1000ml 1,000 ML IV SCH ×4 (02:35→23:25)
[2023-05-29] MEDS: clonazePAM 1mg tablet PO PRN ×3 (04:22→22:22)
[2023-05-29] MEDS: HYDROcodone/acetaminophen 10/325mg tab PO PRN (05:21)
--- NOTE | 2023-05-29 05:34 | NUR ---
assessment performed by myself. IV medications given. reviewed NINA Yang charting.
--- NOTE | 2023-05-29 06:26 | NUR ---
report to Chel BARLOW
[2023-05-29 06:28] LABS: BASOPHILS % (AUTO) 0.1 % (0-1); EOSINOPHILS % (AUTO) 0 % (0-6); HEMATOCRIT 28.2 % (35.0-45.0); HEMOGLOBIN 9.3 g/dl (12.0-16.0); LYMPHOCYTES # (AUTO) 0.6 X10'3 (1.1-4.8); LYMPHOCYTES % (AUTO) 3.7 % (21-51); MEAN CORPUSCULAR HEMOGLOBIN 31.6 PG (27.0-31.0); MEAN CORPUSCULAR HGB CONC 33.1 g/dL (33.0-36.5); MEAN CORPUSCULAR VOLUME 95.4 FL (78-98); MEAN PLATELET VOLUME 10.2 FL (7.4-10.4); MONOCYTES # (AUTO) 0.4 X10'3 (0-0.9); MONOCYTES % (AUTO) 2.4 % (2-12); NEUTROPHILS % (AUTO) 93.8 % (42-75); PLATELET COUNT 180 X10'3 (140-440); RED BLOOD COUNT 2.95 X10'6 (4.20-5.60); RED CELL DISTRIBUTION WIDTH 14.1 % (11.5-14.5); WHITE BLOOD COUNT 15.9 X10'3 (4.5-11.0)
[2023-05-29 06:42] LABS: ALANINE AMINOTRANSFERASE 127 U/L (12-78); ALBUMIN 2.1 G/DL (3.4-5.0); ALBUMIN/GLOBULIN RATIO 0.5 (1.1-1.5); ALKALINE PHOSPHATASE 135 IU/L (46-116); ANION GAP 8 (8-16); ASPARTATE AMINO TRANSFERASE 60 U/L (10-37); BILIRUBIN,TOTAL 0.3 MG/DL (0.1-1.0); BLOOD UREA NITROGEN 19 MG/DL (7-18); BUN/CREATININE RATIO 24.4 (10.0-20.0); CALCIUM 9.1 MG/DL (8.5-10.1); CHLORIDE 108 MMOL/L (99-107); CREATININE 0.78 MG/DL (0.40-0.90); GLUCOSE 145 MG/DL (70-104); MAGNESIUM 2.3 MG/DL (1.5-2.4); POTASSIUM 4.4 MMOL/L (3.5-5.1); SODIUM 138 MMOL/L (135-145); TOTAL CARBON DIOXIDE 22.3 MMOL/L (24-32); TOTAL PROTEIN 6.2 G/DL (6.4-8.2); eCRCL 79 ML/MIN; eGFR 76 ML/MIN
--- NOTE | 2023-05-29 06:45 | NUR ---
Patient in room ORTHO 4010. I have received report from Trey and had the opportunity to ask questions and assume patient care.
[2023-05-29] MEDS: K and/or MAG REPLACEMENT MC SCH ×2 (08:00→20:00)
[2023-05-29] MEDS: docusate sod 100mg capsule PO SCH ×4 (08:00→19:05)
[2023-05-29] MEDS: buPROPion SR 150mg tablet PO SCH (08:26)
[2023-05-29] MEDS: ESCITALOPRAM 10 mg tablet 10 MG TABLET PO SCH (08:27)
[2023-05-29] MEDS: levoTHYROXINE 112mcg tablet PO SCH (08:28)
[2023-05-29] MEDS: cetirizine 10mg tablet PO SCH (08:29)
[2023-05-29] MEDS: acetaminophen 325mg tablet PO SCH ×3 (08:29→22:22)
[2023-05-29] MEDS: fluticasone nasal spray 16GM bottle NS SCH (08:35)
[2023-05-29] MEDS: methylPREDNISolone sod succ/PF 40mg inj. IV SCH ×2 (08:59→19:07)
--- NOTE | 2023-05-29 11:56 | NUR ---
O2 Sat at rest on room air:__87_% If below 89%: Recovery O2 Sat at rest on _2__LPM:_94__%:___% via__nasal cannula (mask/nasal cannula, etc..) No further documentation is necessary. If O2 Sat did not drop below 89% on room air,ambulate patient on room air. O2 Sat while ambulating on room air:___% Recovery O2 Sat while ambulating on ___LPM:___% No further documentation is necessary. If patient does not drop below 89% while ambulating, he/she does not qualify for home O2.
--- NOTE | 2023-05-29 18:45 | NUR ---
Problems reprioritized. Patient report given, questions answered & plan of care reviewed with Tr.
[2023-05-29] MEDS: HYDROcodone/acetaminophen 5mg/325mg tablet PO PRN (19:06)
[2023-05-29] MEDS: enoxaparin 40mg/0.4ml syringe SQ SCH (19:12)
[2023-05-29] MEDS: albuterol 2.5 MG/3 ML nebule NEB PRN (21:04)
[2023-05-29] MEDS: quetiapine 100mg tablet PO SCH (22:22)
[2023-05-29] MEDS: traZODone 50mg tablet PO PRN (22:22)
[2023-05-30] VITALS (10 sets, daily range): BP systolic 109–133; BP diastolic 72–83; PULSE 58–81; RESP 16–18; TEMP 97.6–98.1; O2SAT 90–96
[2023-05-30] MEDS ORDERED: DICL-212 PO (00:51)
[2023-05-30] MEDS: normal saline 1000ml 1,000 ML IV SCH ×2 (04:21→19:57)
[2023-05-30 06:31] LABS: BASOPHILS % (AUTO) 0.2 % (0-1); EOSINOPHILS % (AUTO) 0 % (0-6); HEMATOCRIT 27.7 % (35.0-45.0); HEMOGLOBIN 9.2 g/dl (12.0-16.0); LYMPHOCYTES # (AUTO) 1.5 X10'3 (1.1-4.8); LYMPHOCYTES % (AUTO) 13.1 % (21-51); MEAN CORPUSCULAR HGB CONC 33.3 g/dL (33.0-36.5); MEAN CORPUSCULAR VOLUME 95.9 FL (78-98); MEAN PLATELET VOLUME 10.3 FL (7.4-10.4); MONOCYTES # (AUTO) 0.7 X10'3 (0-0.9); MONOCYTES % (AUTO) 6.3 % (2-12); NEUTROPHILS % (AUTO) 80.4 % (42-75); PLATELET COUNT 202 X10'3 (140-440); RED BLOOD COUNT 2.89 X10'6 (4.20-5.60); WHITE BLOOD COUNT 11.2 X10'3 (4.5-11.0)
--- NOTE | 2023-05-30 06:41 | NUR ---
reported to days. noted pt resting, anticipate qualifying for home O2 today and discharge.
[2023-05-30 06:45] LABS: ALANINE AMINOTRANSFERASE 299 U/L (12-78); ALBUMIN/GLOBULIN RATIO 0.5 (1.1-1.5); ALKALINE PHOSPHATASE 188 IU/L (46-116); ANION GAP 9 (8-16); ASPARTATE AMINO TRANSFERASE 241 U/L (10-37); BILIRUBIN,TOTAL 0.3 MG/DL (0.1-1.0); BLOOD UREA NITROGEN 19 MG/DL (7-18); BUN/CREATININE RATIO 26.4 (10.0-20.0); CHLORIDE 109 MMOL/L (99-107); CREATININE 0.72 MG/DL (0.40-0.90); GLUCOSE 101 MG/DL (70-104); POTASSIUM 4.2 MMOL/L (3.5-5.1); SODIUM 141 MMOL/L (135-145); TOTAL CARBON DIOXIDE 23.1 MMOL/L (24-32); eCRCL 85 ML/MIN; eGFR 83 ML/MIN
[2023-05-30] MEDS: methylPREDNISolone sod succ/PF 40mg inj. IV SCH ×2 (07:58→21:45)
[2023-05-30] MEDS: piperacillin/tazo 4.5gm/100ml 100 ML IV SCH ×2 (07:58→15:37)
[2023-05-30] MEDS: K and/or MAG REPLACEMENT MC SCH ×2 (08:00→20:00)
[2023-05-30] MEDS: docusate sod 100mg capsule PO SCH ×4 (08:00→21:45)
[2023-05-30] MEDS: fluticasone nasal spray 16GM bottle NS SCH (08:33)
[2023-05-30] MEDS: levoTHYROXINE 112mcg tablet PO SCH (08:33)
[2023-05-30] MEDS: ESCITALOPRAM 10 mg tablet 10 MG TABLET PO SCH (08:34)
[2023-05-30] MEDS: acetaminophen 325mg tablet PO SCH ×3 (08:34→21:00)
[2023-05-30] MEDS: cetirizine 10mg tablet PO SCH (08:34)
[2023-05-30] MEDS: buPROPion SR 150mg tablet PO SCH (08:34)
[2023-05-30] MEDS: HYDROcodone/acetaminophen 10/325mg tab PO PRN (10:46)
[2023-05-30] MEDS: ipratropium/albuterol 3ml nebule NEB PRN ×2 (11:10→20:20)
[2023-05-30] MEDS: HYDROcodone/acetaminophen 5mg/325mg tablet PO PRN ×2 (17:51→21:46)
--- NOTE | 2023-05-30 18:14 | NUR ---
Problems reprioritized. Patient report given, questions answered & plan of care reviewed with YEN Armando.
[2023-05-30] MEDS: traZODone 50mg tablet PO PRN (21:45)
[2023-05-30] MEDS: enoxaparin 40mg/0.4ml syringe SQ SCH (21:45)
[2023-05-30] MEDS: quetiapine 100mg tablet PO SCH (21:45)
[2023-05-31] VITALS (9 sets, daily range): BP systolic 101–118; BP diastolic 65–75; PULSE 63–74; RESP 16–20; TEMP 97.3–98.3; O2SAT 87–94
[2023-05-31] MEDS: piperacillin/tazo 4.5gm/100ml 100 ML IV SCH ×3 (00:01→16:19)
[2023-05-31] MEDS: clonazePAM 1mg tablet PO PRN ×2 (02:47→14:58)
[2023-05-31] MEDS: HYDROcodone/acetaminophen 5mg/325mg tablet PO PRN ×2 (02:47→08:17)
[2023-05-31] MEDS: normal saline 1000ml 1,000 ML IV SCH ×3 (03:31→21:59)
--- NOTE | 2023-05-31 06:00 | NUR ---
reported to days. noted pt anxious to go home if labs improved. able to rest better in different room. up to bsc independently lab drawing blood.
--- NOTE | 2023-05-31 06:29 | NUR ---
Patient in room ORTHO 4024. I have received report from YEN Armando and had the opportunity to ask questions and assume patient care.
[2023-05-31] MEDS: K and/or MAG REPLACEMENT MC SCH ×2 (08:00→19:47)
[2023-05-31] MEDS: acetaminophen 325mg tablet PO SCH ×3 (08:00→19:48)
[2023-05-31] MEDS: docusate sod 100mg capsule PO SCH ×4 (08:00→19:47)
[2023-05-31] MEDS: ESCITALOPRAM 10 mg tablet 10 MG TABLET PO SCH (08:15)
[2023-05-31] MEDS: buPROPion SR 150mg tablet PO SCH (08:15)
[2023-05-31] MEDS: cetirizine 10mg tablet PO SCH (08:15)
[2023-05-31] MEDS: fluticasone nasal spray 16GM bottle NS SCH (08:23)
[2023-05-31] MEDS: levoTHYROXINE 112mcg tablet PO SCH (08:23)
[2023-05-31 08:37] LABS: BASOPHILS % (AUTO) 0.1 % (0-1); EOSINOPHILS % (AUTO) 0 % (0-6); HEMATOCRIT 27.3 % (35.0-45.0); HEMOGLOBIN 9.2 g/dl (12.0-16.0); LYMPHOCYTES # (AUTO) 2.1 X10'3 (1.1-4.8); LYMPHOCYTES % (AUTO) 19.2 % (21-51); MEAN CORPUSCULAR HEMOGLOBIN 32.1 PG (27.0-31.0); MEAN CORPUSCULAR HGB CONC 33.7 g/dL (33.0-36.5); MEAN CORPUSCULAR VOLUME 95.4 FL (78-98); MEAN PLATELET VOLUME 9.9 FL (7.4-10.4); MONOCYTES # (AUTO) 0.8 X10'3 (0-0.9); MONOCYTES % (AUTO) 7.7 % (2-12); PLATELET COUNT 242 X10'3 (140-440); RED BLOOD COUNT 2.86 X10'6 (4.20-5.60); WHITE BLOOD COUNT 10.9 X10'3 (4.5-11.0)
[2023-05-31 09:11] LABS: ALANINE AMINOTRANSFERASE 267 U/L (12-78); ALBUMIN/GLOBULIN RATIO 0.5 (1.1-1.5); ALKALINE PHOSPHATASE 169 IU/L (46-116); ANION GAP 7 (8-16); ASPARTATE AMINO TRANSFERASE 120 U/L (10-37); BILIRUBIN,TOTAL 0.5 MG/DL (0.1-1.0); BLOOD UREA NITROGEN 13 MG/DL (7-18); BUN/CREATININE RATIO 16.3 (10.0-20.0); CALCIUM 8.8 MG/DL (8.5-10.1); CHLORIDE 107 MMOL/L (99-107); GLUCOSE 86 MG/DL (70-104); MAGNESIUM 1.9 MG/DL (1.5-2.4); POTASSIUM 4.2 MMOL/L (3.5-5.1); SODIUM 140 MMOL/L (135-145); THYROID STIMULATING HORMONE 0.85 ulU/ml (0.34-4.50); TOTAL CARBON DIOXIDE 25.9 MMOL/L (24-32); TOTAL PROTEIN 5.8 G/DL (6.4-8.2); eCRCL 77 ML/MIN; eGFR 74 ML/MIN
[2023-05-31] MEDS: methylPREDNISolone sod succ/PF 40mg inj. IV SCH ×2 (09:46→19:52)
--- NOTE | 2023-05-31 12:14 | NUR ---
Initial: Pt admit for sepsis secondary to PNA, acute COPD exacerbation, hyponatremia, elevated proBNP, and transaminitis. Pt on a regular diet with fluctuating PO intake however overall eating well with average 73% PO intake meeting 100% estimated energy needs and 85% estimated protein needs. LBM 05/27 per EMR. Pt receiving routine bowel care and received first PRN MoM 05/30. PRN Senna also available. D/w dietary to send prunes and prune juice with next meal. Will continue to follow and monitor need for further nutrition intervention. Recommendations: 1) Continue regular diet 2) Monitor need for ONS/additional protein 3) Routine and PRN bowel care 4) Weekly scaled weights Addendum: 05/31/23 at [address] Amended: Links added.
[2023-05-31] MEDS: albuterol 2.5 MG/3 ML nebule NEB PRN (13:55)
--- NOTE | 2023-05-31 14:30 | NUR ---
Received report from Jairon WOOD. Dr. Rico aware of pt's chest pain. Pt in distress. [place] given for pain. EKG stable per ER MD.
[2023-05-31] MEDS: HYDROcodone/acetaminophen 10/325mg tab PO PRN ×2 (14:56→19:54)
[2023-05-31] MEDS ORDERED: AMOX-117 PO ×2 (15:27)
[2023-05-31] MEDS ORDERED: PRED20TA PO ×2 (15:27)
--- NOTE | 2023-05-31 18:00 | NUR ---
Patient in room ORTHO 4024. I have received report from YEN Kelly and had the opportunity to ask questions and assume patient care.
[2023-05-31] MEDS: enoxaparin 40mg/0.4ml syringe SQ SCH (19:53)
[2023-05-31] MEDS: ipratropium/albuterol 3ml nebule NEB PRN (20:16)
[2023-05-31] MEDS: clonazePAM 1mg tablet PO SCH (21:58)
[2023-05-31] MEDS: quetiapine 100mg tablet PO SCH (21:58)
[2023-06-01] MEDS: piperacillin/tazo 4.5gm/100ml 100 ML IV SCH ×3 (00:13→16:00)
[2023-06-01 04:15] LABS: BASOPHILS % (AUTO) 0.1 % (0-1); EOSINOPHILS # (AUTO) 0.1 X10'3 (0-0.9); EOSINOPHILS % (AUTO) 0.9 % (0-6); HEMATOCRIT 27.8 % (35.0-45.0); LYMPHOCYTES # (AUTO) 1.3 X10'3 (1.1-4.8); LYMPHOCYTES % (AUTO) 8.6 % (21-51); MEAN CORPUSCULAR HEMOGLOBIN 31.2 PG (27.0-31.0); MEAN CORPUSCULAR HGB CONC 32.6 g/dL (33.0-36.5); MEAN CORPUSCULAR VOLUME 95.8 FL (78-98); NEUTROPHILS # (AUTO) 12.2 X10'3 (1.8-7.7); NEUTROPHILS % (AUTO) 83.4 % (42-75); PLATELET COUNT 311 X10'3 (140-440); RED CELL DISTRIBUTION WIDTH 13.9 % (11.5-14.5); WHITE BLOOD COUNT 14.6 X10'3 (4.5-11.0)
[2023-06-01 04:30] LABS: ALANINE AMINOTRANSFERASE 212 U/L (12-78); ALBUMIN 1.9 G/DL (3.4-5.0); ALBUMIN/GLOBULIN RATIO 0.5 (1.1-1.5); ALKALINE PHOSPHATASE 164 IU/L (46-116); ANION GAP 4 (8-16); ASPARTATE AMINO TRANSFERASE 68 U/L (10-37); BILIRUBIN,TOTAL 0.3 MG/DL (0.1-1.0); BLOOD UREA NITROGEN 13 MG/DL (7-18); BUN/CREATININE RATIO 16.7 (10.0-20.0); CALCIUM 8.8 MG/DL (8.5-10.1); CHLORIDE 106 MMOL/L (99-107); CREATININE 0.78 MG/DL (0.40-0.90); GLUCOSE 165 MG/DL (70-104); POTASSIUM 4.5 MMOL/L (3.5-5.1); SODIUM 138 MMOL/L (135-145); TOTAL CARBON DIOXIDE 28.3 MMOL/L (24-32); TOTAL PROTEIN 5.5 G/DL (6.4-8.2); eCRCL 79 ML/MIN; eGFR 76 ML/MIN
[2023-06-01] MEDS: normal saline 1000ml 1,000 ML IV SCH ×2 (04:47→10:35)
[2023-06-01 06:00] VITALS: BP 127/77; PULSE 60; RESP 16; TEMP 98.2; O2SAT 97
[2023-06-01 06:35] LABS: TOTAL CELLS COUNTED 100
[2023-06-01 06:36] LABS: PLATELET ESTIMATE NORMAL
--- NOTE | 2023-06-01 06:36 | NUR ---
Problems reprioritized. Patient report given, questions answered & plan of care reviewed with YEN De La O.
[2023-06-01 06:37] LABS: POLYCHROMASIA FEW; SCHISTOCYTES FEW
--- NOTE | 2023-06-01 06:53 | NUR ---
Patient in room ORTHO 4024. I have received report from YEN Camilo and had the opportunity to ask questions and assume patient care.
[2023-06-01 08:00] VITALS: RESP 16; O2SAT 94
[2023-06-01] MEDS: fluticasone nasal spray 16GM bottle NS SCH (08:00)
[2023-06-01] MEDS: docusate sod 100mg capsule PO SCH ×2 (08:00→09:06)
[2023-06-01] MEDS: acetaminophen 325mg tablet PO SCH ×2 (08:00→13:00)
[2023-06-01] MEDS: K and/or MAG REPLACEMENT MC SCH (08:00)
[2023-06-01] MEDS: methylPREDNISolone sod succ/PF 40mg inj. IV SCH (08:36)
[2023-06-01] MEDS: HYDROcodone/acetaminophen 5mg/325mg tablet PO PRN (09:05)
[2023-06-01] MEDS: buPROPion SR 150mg tablet PO SCH (09:05)
[2023-06-01] MEDS: levoTHYROXINE 112mcg tablet PO SCH (09:06)
[2023-06-01] MEDS: cetirizine 10mg tablet PO SCH (09:06)
[2023-06-01] MEDS: clonazePAM 1mg tablet PO SCH ×2 (09:06→16:18)
[2023-06-01] MEDS: ESCITALOPRAM 10 mg tablet 10 MG TABLET PO SCH (09:06)
[2023-06-01] MEDS: ipratropium/albuterol 3ml nebule NEB PRN (12:11)
[2023-06-01 12:16] VITALS: PULSE 64; RESP 17; O2SAT 92
[2023-06-01 12:21] VITALS: PULSE 69; RESP 16
--- NOTE | 2023-06-01 14:21 | NUR ---
Pt O2 sat's at 93-95 at rest on 5 ltr via n/c. Patient attempted to walk around unit, walked 600 ft without O2 on and O2 sat dropped down to 83. At rest without O2 patient was only able to maintain 86-87 on R.A.
[2023-06-01] MEDS ORDERED: iohexol 350MG/ML 100ml bottle IV ONE (14:22)
[2023-06-01 15:08] LABS: HBSAG SCREEN Negative (Negative); HEP A AB, IGM Negative (Negative); HEP B CORE AB, IGM Negative (Negative)
--- NOTE | 2023-06-01 15:37 | NUR ---
O2 Sat at rest on room air:_86__% If below 89%: Recovery O2 Sat at rest on _5__LPM:__94_%:___% via__nasal cannula (mask/nasal cannula, etc..) No further documentation is necessary. If O2 Sat did not drop below 89% on room air,ambulate patient on room air. O2 Sat while ambulating on room air:___% Recovery O2 Sat while ambulating on ___LPM:___% No further documentation is necessary. If patient does not drop below 89% while ambulating, he/she does not qualify for home O2.
[2023-06-01] MEDS ORDERED: MONT-40 PO ×3 (15:39→17:01)
[2023-06-01] MEDS ORDERED: HYDR-3972 PO ×3 (15:39→17:01)
--- NOTE | 2023-06-01 15:46 | NUR ---
IRON CASTER documentation: I have reviewed and agree with all interventions, assessments performed and documented by Jairon Williamson LVN.
[2023-06-01] MEDS: HYDROcodone/acetaminophen 10/325mg tab PO PRN (16:17)
[2023-06-01] MEDS ORDERED: PRED20TA PO ×2 (17:01)
[2023-06-01] MEDS ORDERED: AMOX-580 PO (17:01)
[2023-06-01 17:17] VITALS: RESP 16
--- NOTE | 2023-06-01 17:51 | NUR ---
Pt stable for discharge. Patient signed all d/c paperwork and IV discontinued prior to d/c. Patient currently sitting in bed with personal belongings on bed waiting on transportation to d/c.
[2023-06-01] MEDS ORDERED: guaiFENesin ER 600mg tablet PO SCH (20:00)
[2023-06-01 20:14] LABS: HEPATITIS C VIRUS ANTIBODY Non Reactive (Non Reactive)
[2023-06-02] MEDS ORDERED: montelukast 10mg tablet PO SCH (08:00)
[2023-06-02] MEDS ORDERED: FERR-119 PO (20:29)
[2023-06-02] MEDS ORDERED: NAPR-1166 PO (20:29)
[2023-06-02] MEDS ORDERED: ESTR42.53 VG (20:29)
[2023-06-03] MEDS ORDERED: ALBU18HF2 INH (13:38)
[2023-06-03] MEDS ORDERED: AMOX-580 PO (13:38)
[2023-06-03] MEDS ORDERED: HYDR-3972 PO (13:49)
[2023-06-03] MEDS ORDERED: MONT-40 PO (13:49)
== END 2023-06-01 18:40 | disposition home health service (06) | DRG 871 ==
LOC: ER 12:15 → ED HOLD 17:14 → ORTHO 4S 05-28 07:25
PROVIDERS: ADMIT Family Medicine; ATTEND Family Medicine
PROC: B32T1ZZ Computerized Tomography (CT Scan) of Left Pulmonary Artery using Low Osmolar Contrast (ICD-10-PCS; principal; 2023-05-27)
PROC: B3201ZZ Computerized Tomography (CT Scan) of Thoracic Aorta using Low Osmolar Contrast (ICD-10-PCS; 2023-05-27)
PROC: B32S1ZZ Computerized Tomography (CT Scan) of Right Pulmonary Artery using Low Osmolar Contrast (ICD-10-PCS; 2023-05-27)
PROC: BW241ZZ Computerized Tomography (CT Scan) of Chest and Abdomen using Low Osmolar Contrast (ICD-10-PCS; 2023-06-01)
DX: A41.9 Sepsis, unspecified organism (principal); J18.9 Pneumonia, unspecified organism; J96.00 Acute respiratory failure, unspecified whether with hypoxia or hypercapnia; K72.00 Acute and subacute hepatic failure without coma; N17.0 Acute kidney failure with tubular necrosis; J44.0 Chronic obstructive pulmonary disease with (acute) lower respiratory infection; E87.1 Hypo-osmolality and hyponatremia; Z20.822 Contact with and (suspected) exposure to COVID-19; I25.10 Atherosclerotic heart disease of native coronary artery without angina pectoris; F31.9 Bipolar disorder, unspecified; D64.9 Anemia, unspecified; E03.9 Hypothyroidism, unspecified; E86.9 Volume depletion, unspecified; F43.10 Post-traumatic stress disorder, unspecified; F17.290 Nicotine dependence, other tobacco product, uncomplicated; I07.1 Rheumatic tricuspid insufficiency; I37.1 Nonrheumatic pulmonary valve insufficiency; G89.29 Other chronic pain; Z79.51 Long term (current) use of inhaled steroids; Z79.899 Other long term (current) drug therapy; Z82.49 Family history of ischemic heart disease and other diseases of the circulatory system; Z81.8 Family history of other mental and behavioral disorders; Z88.8 Allergy status to other drugs, medicaments and biological substances; Z88.5 Allergy status to narcotic agent
CPT/HCPCS: 36415; 36600; 71045; 71260; 71275; 76700; 80053; 80074; 82803; 83605; 83735; 83880; 84145; 84443; 84484; 85007; 85018; 85025; 87040; 87811; 93005; 93306; 94640; 94760; 97110; 97530; 99285; A4615; A6258; A7015; G0378; J1650; J2543; J2920; J2930; J3490; J7030; Q9967

== ENCOUNTER 2024-04-21 13:27 | Emergency (ER) | payer MEDICARE, MEDICAID ==
[~2024-04-21] VITALS: Ht 180.3 cm; Wt 63.0 kg
[~2024-04-21 13:27] MED LIST changes: -ACET-1131 PO; +ADV50250 IH; +ALBU18HF2 INH; -ALBUTEROL 90 MCG INH; +APIX5TAB3 PO; -BACL-11 PO; -BUDE10.2 INH; +CLON1TAB12 PO; -CLON1TAB95 PO; -CYCL1DRO10 RIGHTEYE; +DIVA250T4 PO; -DOCU100C40 PO; -ESCI20TA39 PO; +ESTR42.53 VG; -FAMO-128 PO; +FER325T PO; +FLUT16SP NS; -FLUT16SP2 BOTHNARES; +FLUT16SP35 BOTHNARES; -LEVO100T PO; +LEVO112T5 PO; +LIDO700A47 TP; -LORA10TA7 PO; -MDI INH; +MIRT-87 PO; +MONT-40 PO; +PALI9TAB PO; +PROP1DRO7 OP; +QUET100T34 PO; +QUET25TA36 PO; -QUET300T20 PO; -QUET50TA24 PO; +SALI45SP BU; +TRAM50TA2 PO; -TRAZ150T78 PO
[2024-04-21 13:41] VITALS: BP 92/57; PULSE 66; RESP 16; O2SAT 97
[2024-04-21] MEDS: ondansetron 4mg rapidly disintigrating tab PO ONE (14:55)
[2024-04-21] MEDS ORDERED: TRAZ-256 PO (17:49)
[2024-04-21] MEDS ORDERED: QUET-1 PO (17:49)
[2024-04-21] MEDS ORDERED: APIX5TAB3 PO (17:49)
[2024-04-21 18:20] VITALS: TEMP 98.1
== END 2024-04-21 18:22 | disposition home or self-care (01) ==
LOC: ER 13:28
DX: E86.0 Dehydration (principal); Z20.822 Contact with and (suspected) exposure to COVID-19; J44.9 Chronic obstructive pulmonary disease, unspecified; E03.9 Hypothyroidism, unspecified; F32.A Depression, unspecified; Z88.5 Allergy status to narcotic agent; Z88.8 Allergy status to other drugs, medicaments and biological substances; Z79.899 Other long term (current) drug therapy
CPT/HCPCS: 36415; 87811; 99283

== ENCOUNTER 2024-04-25 04:01 | Inpatient (IN) | payer MEDICARE, MEDICAID ==
[~2024-04-25] VITALS: Ht 180.3 cm; Wt 73.9 kg
[~2024-04-25 04:01] MED LIST changes: +QUET-1 PO; -SENN-263 PO; +SENN-360 PO; +TRAZ-256 PO
[2024-04-25] MEDS: diphenhydrAMINE 25mg capsule PO ONE (05:27)
[2024-04-25] MEDS: LORazepam 1 MG tablet PO ONE ×4 (05:28→17:33)
[2024-04-25 06:33] LABS: BASOPHILS # (AUTO) 0.1 X10'3 (0-0.2); BASOPHILS % (AUTO) 0.8 % (0-1); EOSINOPHILS # (AUTO) 0.1 X10'3 (0-0.9); EOSINOPHILS % (AUTO) 1.3 % (0-6); HEMATOCRIT 38.6 % (35.0-45.0); HEMOGLOBIN 12.7 g/dl (12.0-16.0); LYMPHOCYTES # (AUTO) 1.5 X10'3 (1.1-4.8); MEAN CORPUSCULAR HEMOGLOBIN 30.5 PG (27.0-31.0); MEAN CORPUSCULAR HGB CONC 32.9 g/dL (33.0-36.5); MEAN CORPUSCULAR VOLUME 92.6 FL (78-98); MONOCYTES # (AUTO) 0.5 X10'3 (0-0.9); NEUTROPHILS # (AUTO) 5.2 X10'3 (1.8-7.7); NEUTROPHILS % (AUTO) 70.9 % (42-75); PLATELET COUNT 252 X10'3 (140-440); RED BLOOD COUNT 4.17 X10'6 (4.20-5.60); RED CELL DISTRIBUTION WIDTH 14.4 % (11.5-14.5); WHITE BLOOD COUNT 7.3 X10'3 (4.5-11.0)
[2024-04-25 06:46] LABS: ALBUMIN 3.4 G/DL (3.4-5.0); ANION GAP 7 (8-16); BLOOD UREA NITROGEN 13 MG/DL (7-18); BUN/CREATININE RATIO 17.1 (10.0-20.0); CALCIUM 8.2 MG/DL (8.5-10.1); CHLORIDE 107 MMOL/L (99-107); CREATININE 0.76 MG/DL (0.40-0.90); GLUCOSE 95 MG/DL (70-104); POTASSIUM 4.4 MMOL/L (3.5-5.1); SODIUM 138 MMOL/L (135-145); THYROID STIMULATING HORMONE 4.01 ulU/ml (0.34-4.50); eCRCL 81 ML/MIN; eGFR 78 ML/MIN
[2024-04-25 06:52] LABS: ETHANOL < 10 MG/DL (<10)
[2024-04-25 08:01] LABS: BILIRUBIN,URINE NEGATIVE (Neg); CLARITY,URINE CLEAR (Clear); COLOR,URINE STRAW (Yellow); GLUCOSE, URINE NEGATIVE (Neg); KETONES,URINE NEGATIVE (Neg); LEUKOCYTE ESTERASE ,URINE NEGATIVE (Neg); NITRITES, URINE NEGATIVE (Neg); OCCULT BLOOD,URINE NEGATIVE (Neg); PH,URINE 6.5 (4.8-8.0); PROTEIN,URINE NEGATIVE (Neg); UROBILINOGEN,URINE 0.2 E.U/dL (0.2-1.0)
[2024-04-25 08:06] LABS: UA COLLECTION TYPE CLN CATCH MIDSTREAM
[2024-04-25 08:08] LABS: URINE HCG NEGATIVE (NEG)
[2024-04-25 08:41] LABS: URINE AMPHETAMINE SCREEN NEGATIVE (Neg); URINE BARBITUATE SCREEN NEGATIVE (Neg); URINE BENZODIAZEPINES SCREEN NEGATIVE (Neg); URINE CANNABINOID SCREEN NEGATIVE (Neg); URINE COCAINE SCREEN NEGATIVE (Neg); URINE METHADONE SCREEN NEGATIVE (Neg); URINE OPIATE SCREEN NEGATIVE (Neg); URINE PHENCYCLIDINE SCREEN NEGATIVE (Neg)
[2024-04-25] MEDS ORDERED: ACET-2778 PO (10:14)
[2024-04-25] MEDS ORDERED: DOCU100C40 PO (10:14)
[2024-04-25] MEDS ORDERED: MELO-102 PO (10:14)
[2024-04-25] MEDS ORDERED: MONT-40 PO (15:16)
[2024-04-25] MEDS ORDERED: DIVA-76 PO (15:16)
[2024-04-25] MEDS ORDERED: ALBU18HF2 INH (15:16)
[2024-04-25] MEDS ORDERED: FLUT12AE2 (15:16)
[2024-04-25] MEDS ORDERED: PALI9TAB4 PO (15:16)
[2024-04-25] MEDS ORDERED: PROP10DR3 EACHEYE (15:16)
[2024-04-25] MEDS ORDERED: APIX5TAB3 PO (15:16)
[2024-04-25] MEDS ORDERED: SENN-360 PO (15:16)
[2024-04-25] MEDS ORDERED: MIRT-92 PO (15:16)
[2024-04-25] MEDS ORDERED: LEVO112C4 PO (15:16)
[2024-04-25] MEDS ORDERED: ASEN5TAB10 SL (15:16)
[2024-04-25] MEDS ORDERED: LIDO1ADH67 (15:16)
[2024-04-25] MEDS ORDERED: ESTR42.510 VG (15:16)
[2024-04-25] MEDS ORDERED: QUET-1 PO (15:16)
[2024-04-25] MEDS ORDERED: CETI10TA14 PO (15:16)
[2024-04-25] MEDS ORDERED: HYDR-3686 PO (15:16)
[2024-04-25] MEDS ORDERED: FERR-106 PO (15:16)
[2024-04-25] MEDS ORDERED: non-formulary drug (Albuterol Sulfate (Ventolin Hfa) 2 PUFFS) INH PRN (15:50)
[2024-04-25] MEDS: hydrOXYzine 25 MG tablet PO PRN (16:42)
[2024-04-25 18:00] VITALS: PULSE 78; RESP 20; O2SAT 94
[2024-04-25] MEDS ORDERED: PEG EACHEYE SCH (20:00)
[2024-04-25] MEDS: albuterol 2.5 MG/3 ML nebule NEB SCH (20:00)
[2024-04-25] MEDS ORDERED: PROPYLENE GLYCOL EACHEYE SCH (20:00)
[2024-04-25] MEDS: divalproex sodium 500mg tablet.DR PO SCH (20:13)
[2024-04-25] MEDS: quetiapine 100mg tablet PO SCH (20:14)
[2024-04-25] MEDS: docusate sod 100mg capsule PO SCH (20:14)
[2024-04-25] MEDS: mirtazapine 15mg tablet PO SCH (20:14)
[2024-04-25] MEDS: apixaban 5mg tablet PO SCH (20:14)
[2024-04-25 20:17] VITALS: PULSE 79; RESP 16; O2SAT 92
[2024-04-25] MEDS: asenapine 5mg TAB.SUBL SL SCH (20:17)
[2024-04-25] MEDS: budesonide 0.5mg/2ml UD nebule IH SCH (20:17)
[2024-04-25 20:25] VITALS: PULSE 82; RESP 16
[2024-04-25] MEDS ORDERED: non-formulary drug (Acetaminophen (Acetaminophen ER) 1 TAB) PO SCH (21:00)
[2024-04-25] MEDS: LORazepam 1 MG tablet PO PRN (22:52)
[2024-04-26] MEDS: PALIPERIDONE 3 MG TAB.ER.24 PO SCH (07:37)
[2024-04-26] MEDS: ferrous sulfate 325mg tablet PO SCH (07:38)
[2024-04-26] MEDS: montelukast 10mg tablet PO SCH (07:38)
[2024-04-26] MEDS: levoTHYROXINE 112mcg tablet PO SCH (07:38)
[2024-04-26] MEDS: cetirizine 10mg tablet PO SCH (07:38)
[2024-04-26] MEDS: sennosides 8.6mg tablet PO SCH (07:39)
[2024-04-26] MEDS ORDERED: fluticasone nasal spray 16GM bottle NS PRN (08:00)
[2024-04-26 08:20] VITALS: PULSE 78; RESP 18; O2SAT 94
[2024-04-26 08:25] VITALS: PULSE 80; RESP 16
[2024-04-26] MEDS: chlordiazePOXIDE 25mg capsule PO ONE (11:28)
[2024-04-26] MEDS: traMADol 50MG tablet PO ONE (15:13)
[2024-04-26] MEDS: ALPRAZolam 0.5mg tablet PO ONE (15:13)
[2024-04-26 20:17] VITALS: PULSE 91; RESP 16; O2SAT 94
[2024-04-26 20:22] VITALS: PULSE 79; RESP 16
[2024-04-26 23:48] VITALS: RESP 16; O2SAT 94
[2024-04-27] MEDS ORDERED: LEVO112T52 PO (01:54)
[2024-04-27] MEDS ORDERED: CLON1TAB94 PO (01:54)
[2024-04-27] MEDS ORDERED: AZEL205.10 BOTHNARES (01:54)
[2024-04-27] MEDS ORDERED: QUET25TA PO (01:54)
[2024-04-27] MEDS ORDERED: MIRT45TA83 PO (01:54)
[2024-04-27] MEDS ORDERED: CLON-370 PO (01:54)
[2024-04-27] MEDS ORDERED: PALI234D IM (01:54)
[2024-04-27] MEDS ORDERED: FLUT12AE2 INH (01:54)
[2024-04-27] MEDS ORDERED: HYDR-3686 PO (01:54)
[2024-04-27] MEDS ORDERED: TRAZ-256 PO (01:54)
[2024-04-27] MEDS ORDERED: CLON1TAB2 PO (01:54)
[2024-04-27] MEDS ORDERED: PALI6TAB PO (01:54)
[2024-04-27] MEDS ORDERED: PALI156D IM (01:54)
[2024-04-27] MEDS ORDERED: SALI45SP BU (02:05)
[2024-04-27] MEDS ORDERED: ESTRADIOL 0.01% VG (02:05)
[2024-04-27] MEDS ORDERED: PROP10DR5 OP (02:05)
[2024-04-27] MEDS ORDERED: FER325T PO (02:05)
[2024-04-27] MEDS ORDERED: TRAM50TA2 PO (02:21)
[2024-04-27] MEDS ORDERED: CETI10TA19 PO (02:23)
[2024-04-27] MEDS ORDERED: PEG OP PRN (04:00)
[2024-04-27] MEDS ORDERED: PROPYLENE GLYCOL OP PRN (04:00)
[2024-04-27] MEDS ORDERED: PALI3TAB5 PO (04:03)
[2024-04-27] MEDS ORDERED: DOCU100C40 PO (04:04)
[2024-04-27] MEDS ORDERED: albuterol 2.5 MG/3 ML nebule NEB PRN (04:15)
[2024-04-27] MEDS: clonazePAM 1mg tablet PO PRN (04:58)
[2024-04-27 07:33] VITALS: BP 101/68; PULSE 66; RESP 16; TEMP 97.9; O2SAT 97
[2024-04-27] MEDS ORDERED: non-formulary drug (Cetirizine HCl 1 TAB) PO SCH (08:00)
[2024-04-27] MEDS ORDERED: ESTRADIOL VG SCH (08:00)
[2024-04-27] MEDS ORDERED: SALMETEROL INH SCH (08:00)
[2024-04-27] MEDS ORDERED: FLUTICASONE INH SCH (08:00)
[2024-04-27] MEDS: azelastine Nasal Spray bottle NS SCH (08:00)
[2024-04-27] MEDS: ESTRADIOL 0.01% VG SCH (08:00)
[2024-04-27] MEDS: levoTHYROXINE 112mcg tablet PO SCH (08:12)
[2024-04-27] MEDS: docusate sod 100mg capsule PO SCH (08:12)
[2024-04-27] MEDS: ferrous sulfate 325mg tablet PO SCH (08:12)
[2024-04-27] MEDS: apixaban 5mg tablet PO SCH (08:12)
[2024-04-27] MEDS: montelukast 10mg tablet PO SCH (08:12)
[2024-04-27] MEDS: divalproex sodium 500mg tablet.DR PO SCH (08:12)
[2024-04-27] MEDS: traMADol 50MG tablet PO PRN (08:13)
[2024-04-27 08:42] VITALS: PULSE 72; RESP 16; O2SAT 94
[2024-04-27] MEDS ORDERED: FLU VACC TS2024-25(6MOS UP)/PF 45 MCG/0.5 ML SYRINGE IMVAC ONE (10:00)
[2024-04-27] MEDS: FLU VACC TS2024-25(6MOS UP)/PF 45 MCG/0.5 ML SYRINGE IMVAC ONE (11:56)
[2024-04-27] MEDS: acetaminophen 325mg tablet PO PRN (13:38)
[2024-04-27 19:00] VITALS: RESP 16; O2SAT 96
[2024-04-27] MEDS: hydrOXYzine 25 MG tablet PO PRN (19:30)
[2024-04-27 20:00] VITALS: BP 101/70; PULSE 77; RESP 16; TEMP 97.4; O2SAT 96
[2024-04-27 20:30] VITALS: PULSE 85; RESP 16; O2SAT 93
[2024-04-27] MEDS: baclofen 10mg tablet PO PRN (20:37)
[2024-04-27] MEDS: mirtazapine 15mg tablet PO SCH (20:37)
[2024-04-27] MEDS: PALIPERIDONE 3 MG TAB.ER.24 PO SCH (20:38)
[2024-04-27] MEDS: quetiapine 100mg tablet PO SCH (20:38)
[2024-04-27] MEDS: traZODone 50mg tablet PO SCH (20:38)
[2024-04-27 20:40] VITALS: PULSE 74; RESP 16
[2024-04-28] MEDS: QUEtiapine 25mg tablet PO PRN (00:40)
[2024-04-28 07:21] VITALS: BP 103/68; PULSE 74; RESP 16; TEMP 98.1; O2SAT 95
[2024-04-28] MEDS: MELOXICAM 7.5 MG TABLET PO SCH (07:52)
[2024-04-28 08:48] VITALS: PULSE 94; RESP 20; O2SAT 95
[2024-04-28 08:53] VITALS: PULSE 92; RESP 20
[2024-04-28 19:00] VITALS: BP 106/66; PULSE 67; RESP 16; TEMP 98.1; O2SAT 94
[2024-04-28 20:35] VITALS: PULSE 71; RESP 16; O2SAT 93
[2024-04-28 20:42] VITALS: PULSE 75; RESP 17
[2024-04-29] VITALS (8 sets, daily range): BP systolic 103–104; BP diastolic 64–71; PULSE 63–80; RESP 14–20; TEMP 97.9–98.1; O2SAT 93–99
[2024-04-29] MEDS: saliva stimulant agent 45ml spray MM PRN (02:47)
[2024-04-29] MEDS: polyethylene glycol 3350 17gm powd pack PO SCH (20:04)
[2024-04-29] MEDS: ESTRADIOL 0.01% VG SCH (21:00)
[2024-04-30] VITALS (7 sets, daily range): BP systolic 101–103; BP diastolic 63; PULSE 75–78; RESP 16–20; TEMP 97.3–98.4; O2SAT 92–94
[2024-04-30] MEDS: sennosides 8.6mg tablet PO PRN (12:19)
[2024-05-01] VITALS (7 sets, daily range): BP systolic 105–113; BP diastolic 55–72; PULSE 63–83; RESP 14–46; TEMP 96.3–97.8; O2SAT 92–97
[2024-05-02] VITALS (8 sets, daily range): BP systolic 105–124; BP diastolic 65–77; PULSE 63–75; RESP 12–18; TEMP 97.6–97.7; O2SAT 92–98
[2024-05-02] MEDS ORDERED: albuterol 2.5 MG/3 ML nebule NEB PRN (15:10)
[2024-05-02] MEDS: hydrOXYzine 25 MG tablet PO PRN (16:48)
[2024-05-02] MEDS: PALIPERIDONE 3 MG TAB.ER.24 PO SCH (20:19)
[2024-05-03] VITALS (8 sets, daily range): BP systolic 101–107; BP diastolic 57–67; PULSE 70–84; RESP 16–18; TEMP 97.5; O2SAT 94–97
[2024-05-04] VITALS (8 sets, daily range): BP systolic 111–112; BP diastolic 63–70; PULSE 63–98; RESP 16–18; TEMP 97.6–98.1; O2SAT 91–96
[2024-05-04] MEDS: prazosin 1mg capsule PO SCH (20:26)
[2024-05-05] VITALS (8 sets, daily range): BP systolic 96–103; BP diastolic 58–63; PULSE 60–96; RESP 16–20; TEMP 97.2–98.1; O2SAT 90–94
[2024-05-05] MEDS: HALLS - SOOTHE MENTHOL 1.8 MG cough drop LOZENGE MM PRN (08:50)
[2024-05-06] VITALS (8 sets, daily range): BP systolic 115; BP diastolic 63–70; PULSE 74–85; RESP 16; TEMP 98.1–98.5; O2SAT 92–96
[2024-05-07] VITALS (8 sets, daily range): BP systolic 99–113; BP diastolic 62–68; PULSE 63–82; RESP 14–20; TEMP 96.9–98; O2SAT 90–96
[2024-05-08] VITALS (7 sets, daily range): BP systolic 99–100; BP diastolic 61; PULSE 64–77; RESP 16–18; TEMP 97.3–97.8; O2SAT 90–94
[2024-05-09 07:36] VITALS: BP 95/55; PULSE 55; RESP 16; TEMP 98.2; O2SAT 93
[2024-05-09 09:08] VITALS: PULSE 76; RESP 16; O2SAT 90
[2024-05-09 09:16] VITALS: PULSE 66; RESP 16
[2024-05-09 20:00] VITALS: BP 104/60; PULSE 68; RESP 20; TEMP 97.5; O2SAT 96
[2024-05-09 20:23] VITALS: PULSE 76; RESP 16; O2SAT 90
[2024-05-09 20:31] VITALS: PULSE 74; RESP 16
[2024-05-10 07:43] VITALS: BP 102/60; PULSE 62; RESP 16; TEMP 97.5; O2SAT 96
[2024-05-10 08:22] VITALS: PULSE 70; RESP 18; O2SAT 94
[2024-05-10 08:24] VITALS: PULSE 60; RESP 16
[2024-05-10 19:00] VITALS: BP 108/75; PULSE 84; RESP 16; TEMP 97.4; O2SAT 95
[2024-05-10 20:23] VITALS: PULSE 84; RESP 18; O2SAT 92
[2024-05-10 20:31] VITALS: PULSE 61; RESP 16
[2024-05-11] VITALS (8 sets, daily range): BP systolic 97–100; BP diastolic 54–58; PULSE 59–78; RESP 14–19; TEMP 97.3–97.5; O2SAT 92–98
[2024-05-11] MEDS: traZODone 50mg tablet PO SCH (21:27)
[2024-05-12] VITALS (8 sets, daily range): BP systolic 95–103; BP diastolic 53–64; PULSE 66–80; RESP 14–16; TEMP 97.1–97.7; O2SAT 88–98
[2024-05-12] MEDS: traZODone 50mg tablet PO SCH (20:29)
[2024-05-13] VITALS (8 sets, daily range): BP systolic 101–107; BP diastolic 62–63; PULSE 58–81; RESP 14–18; TEMP 97.1–97.3; O2SAT 88–96
[2024-05-14] VITALS (8 sets, daily range): BP systolic 101; BP diastolic 57; PULSE 59–72; RESP 14–18; TEMP 97.1–97.4; O2SAT 90–98
[2024-05-14] MEDS: QUEtiapine 25mg tablet PO PRN (22:30)
[2024-05-15] VITALS (7 sets, daily range): BP systolic 96–104; BP diastolic 58–64; PULSE 60–74; RESP 12–18; TEMP 97–97.1; O2SAT 91–94
[2024-05-16] VITALS (7 sets, daily range): BP systolic 94; BP diastolic 50; PULSE 56–84; RESP 16–18; TEMP 98.2; O2SAT 92–94
[2024-05-17] VITALS (9 sets, daily range): BP systolic 103–108; BP diastolic 61–69; PULSE 59–79; RESP 12–20; TEMP 97–98.5; O2SAT 90–95
[2024-05-18] VITALS (9 sets, daily range): BP systolic 96–100; BP diastolic 56–60; PULSE 58–66; RESP 16–20; TEMP 97–97.5; O2SAT 95–96
[2024-05-19] VITALS (9 sets, daily range): BP systolic 107–110; BP diastolic 49–65; PULSE 55–80; RESP 14–25; TEMP 97.1–98.6; O2SAT 90–98
[2024-05-20] VITALS (7 sets, daily range): BP systolic 87–91; BP diastolic 48–57; PULSE 57–69; RESP 16–18; TEMP 96.3–97; O2SAT 92–94
[2024-05-21] VITALS (7 sets, daily range): BP systolic 93–109; BP diastolic 61–70; PULSE 62–73; RESP 15–18; TEMP 97–97.4; O2SAT 92–98
[2024-05-22 07:00] VITALS: RESP 16; O2SAT 94
[2024-05-22 08:00] VITALS: BP 107/51; PULSE 63; RESP 14; TEMP 97.1; O2SAT 93
[2024-05-22 08:55] VITALS: PULSE 67; PULSE 87; RESP 14; O2SAT 89
[2024-05-22 08:59] VITALS: PULSE 63; RESP 16
[2024-05-22] MEDS: clonazePAM 1mg tablet PO PRN (18:43)
[2024-05-22 19:00] VITALS: RESP 18; O2SAT 96
[2024-05-22 20:00] VITALS: BP 103/68; PULSE 64; RESP 18; TEMP 98.4; O2SAT 96
[2024-05-22] MEDS: benztropine 1mg tablet PO SCH (20:25)
[2024-05-22] MEDS: quetiapine 100mg tablet PO SCH (20:26)
[2024-05-23 07:00] VITALS: RESP 16; O2SAT 94
[2024-05-23 08:00] VITALS: BP 100/62; PULSE 68; RESP 16; TEMP 98.5; O2SAT 94
[2024-05-23] MEDS: fluticasone nasal spray 16GM bottle NS SCH (08:08)
[2024-05-23 19:00] VITALS: RESP 14; O2SAT 95
[2024-05-23 19:18] VITALS: PULSE 69; RESP 16; O2SAT 90
[2024-05-23 19:25] VITALS: PULSE 60; RESP 16
[2024-05-23 20:00] VITALS: BP 94/58; PULSE 68; RESP 14; TEMP 98.3; O2SAT 95
[2024-05-24] VITALS (7 sets, daily range): BP systolic 98–109; BP diastolic 62; PULSE 58–76; RESP 16; TEMP 96.9–98; O2SAT 91–96
[2024-05-25 08:00] VITALS: BP 100/56; PULSE 60; RESP 18; TEMP 98.6; O2SAT 96
[2024-05-25 08:40] VITALS: PULSE 68; RESP 16; O2SAT 89
[2024-05-25 08:47] VITALS: PULSE 58; RESP 16
[2024-05-25 19:00] VITALS: RESP 18; O2SAT 95
[2024-05-25 20:00] VITALS: BP 103/56; PULSE 87; RESP 18; TEMP 97.3
[2024-05-26 07:00] VITALS: RESP 16; O2SAT 94
[2024-05-26 08:00] VITALS: BP 105/65; PULSE 54; RESP 16; TEMP 97.9; O2SAT 94
[2024-05-26] MEDS: albuterol 2.5 MG/3 ML nebule NEB PRN (12:31)
[2024-05-26 12:34] VITALS: PULSE 68; RESP 16; O2SAT 89
[2024-05-26 19:00] VITALS: BP 103/68; PULSE 62; RESP 16; TEMP 96.3; O2SAT 97
[2024-05-26 20:28] VITALS: PULSE 68; RESP 15; O2SAT 92
[2024-05-26 20:33] VITALS: PULSE 59; RESP 14
[2024-05-27] VITALS (8 sets, daily range): BP systolic 90–103; BP diastolic 59–65; PULSE 58–75; RESP 15–16; TEMP 97.2–97.6; O2SAT 90–93
[2024-05-27] MEDS: lactulose 20gm/30ml cup PO SCH (20:43)
[2024-05-28] VITALS (8 sets, daily range): BP systolic 100–109; BP diastolic 63; PULSE 58–88; RESP 12–20; TEMP 97.3–98.4; O2SAT 90–93
[2024-05-29] VITALS (7 sets, daily range): BP systolic 93–100; BP diastolic 58–65; PULSE 63–68; RESP 16–18; TEMP 97.7–97.8; O2SAT 92–99
[2024-05-29] MEDS ORDERED: levalbuterol 1.25mg/0.5ml nebule IH PRN (17:20)
[2024-05-29] MEDS: LEVALBUTEROL HCL 1.25 MG/3 ML VIAL.NEB INH PRN (21:30)
[2024-05-30] VITALS (8 sets, daily range): BP systolic 93–95; BP diastolic 58–60; PULSE 56–69; RESP 16–19; TEMP 96.7–97.7; O2SAT 90–100
[2024-05-30] MEDS: benztropine 1mg tablet PO SCH (20:45)
[2024-05-31 07:30] VITALS: BP 94/60; PULSE 65; RESP 14; TEMP 98.2; O2SAT 94
[2024-05-31 08:01] VITALS: PULSE 67; RESP 18; O2SAT 88
[2024-05-31 08:10] VITALS: PULSE 64; RESP 18
[2024-05-31 20:00] VITALS: BP 92/55; PULSE 68; RESP 12; TEMP 97.7; O2SAT 91
[2024-06-01 07:30] VITALS: BP 95/51; PULSE 65; RESP 16; TEMP 98.4; O2SAT 93
[2024-06-01] MEDS: bisacodyl 5mg tablet.DR PO PRN (07:42)
[2024-06-01 11:27] VITALS: PULSE 59; RESP 18; O2SAT 96
[2024-06-01 11:37] VITALS: PULSE 59; RESP 16
[2024-06-01 19:00] VITALS: BP 97/64; PULSE 68; RESP 14; TEMP 97.3; O2SAT 94
[2024-06-01 23:36] VITALS: RESP 14; O2SAT 94
[2024-06-02] VITALS (9 sets, daily range): BP systolic 99–107; BP diastolic 61–72; PULSE 58–74; RESP 16–20; TEMP 97.2–98.1; O2SAT 91–95
[2024-06-03] VITALS (8 sets, daily range): BP systolic 93–107; BP diastolic 58–59; PULSE 61–68; RESP 14–18; TEMP 97–97.3; O2SAT 89–92
[2024-06-03] MEDS ORDERED: acetaminophen 325mg tablet PO PRN (15:55)
[2024-06-03] MEDS ORDERED: loperamide 2mg capsule PO PRN (15:55)
[2024-06-03] MEDS ORDERED: mag hydrox/Alum hydrox/simeth 30ml oral suspension PO PRN (15:55)
[2024-06-03] MEDS ORDERED: polyvinyl alcohol eye drops 15ML BOTTLE EACHEYE PRN (16:05)
[2024-06-03] MEDS: sennosides/docusate sodium tablet PO SCH (16:37)
[2024-06-03] MEDS: budesonide 0.5mg/2ml UD nebule IH SCH (19:19)
[2024-06-04] VITALS (8 sets, daily range): BP systolic 98–101; BP diastolic 64–65; PULSE 60–69; RESP 12–16; TEMP 97.1–98; O2SAT 90–96
[2024-06-04] MEDS: sennosides/docusate sodium tablet PO SCH (07:39)
[2024-06-04] MEDS: cholecalciferol (vitamin D3) 1,000 unit (25mcg) tablet PO SCH (07:39)
[2024-06-04] MEDS: multivitamins, therapeutics tablet PO SCH (07:39)
[2024-06-04] MEDS: LIDOcaine 5% patch TP SCH (22:00)
[2024-06-05] VITALS (10 sets, daily range): BP systolic 99–102; BP diastolic 63–65; PULSE 49–72; RESP 14–18; TEMP 96.2–97.5; O2SAT 89–93
[2024-06-05] MEDS ORDERED: LIDOcaine 5% patch TP SCH (08:00)
[2024-06-05] MEDS: magnesium hydroxide 30ml (MOM) UD suspension PO PRN (20:51)
[2024-06-06 07:30] VITALS: BP 98/56; PULSE 61; RESP 14; TEMP 97.9; O2SAT 92
[2024-06-06 12:15] VITALS: PULSE 65; RESP 16; O2SAT 89
[2024-06-06 12:20] VITALS: PULSE 56; RESP 17
[2024-06-06] MEDS ORDERED: HYDROcodone/acetaminophen 5mg/325mg tablet PO PRN (13:40)
[2024-06-06] MEDS: oxyCODONE/APAP 10/325mg tablet PO PRN (14:32)
[2024-06-06 20:00] VITALS: BP 103/63; PULSE 74; RESP 16; TEMP 96.4; O2SAT 92
[2024-06-06 20:11] VITALS: PULSE 68; RESP 16; O2SAT 96
[2024-06-06] MEDS: oxyCODONE/APAP 5-325mg tablet PO PRN (20:13)
[2024-06-06 20:21] VITALS: PULSE 65; RESP 16
[2024-06-07] VITALS (7 sets, daily range): BP systolic 98–103; BP diastolic 61–63; PULSE 59–70; RESP 12–18; TEMP 97.1–97.8; O2SAT 86–98
[2024-06-07] MEDS: bisacodyl 10mg suppository rectal RC ONE (13:36)
[2024-06-08] VITALS (9 sets, daily range): BP systolic 97–112; BP diastolic 61–66; PULSE 59–76; RESP 14–18; TEMP 97.6–98.4; O2SAT 87–98
[2024-06-08] MEDS ORDERED: MIDAZolam 1mg/ml 10ml vial ONE (16:06)
[2024-06-09] VITALS (7 sets, daily range): BP systolic 92–109; BP diastolic 53–69; PULSE 68–78; RESP 16–18; TEMP 97.2–98.1; O2SAT 91–95
[2024-06-09] MEDS: magnesium citrate 296ml oral solution PO PRN (20:45)
[2024-06-10] VITALS (8 sets, daily range): BP systolic 99–106; BP diastolic 70–72; PULSE 67–77; RESP 12–17; TEMP 98.2–98.4; O2SAT 90–96
[2024-06-10] MEDS: lactulose 20gm/30ml cup PO PRN (08:24)
[2024-06-10 15:34] LABS: BASOPHILS % (AUTO) 0.4 % (0-1); EOSINOPHILS # (AUTO) 0.1 X10'3 (0-0.9); HEMATOCRIT 40.3 % (35.0-45.0); HEMOGLOBIN 13.4 g/dl (12.0-16.0); LYMPHOCYTES # (AUTO) 1.5 X10'3 (1.1-4.8); LYMPHOCYTES % (AUTO) 21.4 % (21-51); MEAN CORPUSCULAR HEMOGLOBIN 31.3 PG (27.0-31.0); MEAN CORPUSCULAR HGB CONC 33.2 g/dL (33.0-36.5); MEAN CORPUSCULAR VOLUME 94.3 FL (78-98); MEAN PLATELET VOLUME 9.1 FL (7.4-10.4); MONOCYTES # (AUTO) 0.5 X10'3 (0-0.9); MONOCYTES % (AUTO) 7.2 % (2-12); PLATELET COUNT 227 X10'3 (140-440); RED BLOOD COUNT 4.27 X10'6 (4.20-5.60); RED CELL DISTRIBUTION WIDTH 15.2 % (11.5-14.5); WHITE BLOOD COUNT 7.2 X10'3 (4.5-11.0)
[2024-06-10 15:45] LABS: ANION GAP 4 (8-16); BLOOD UREA NITROGEN 14 MG/DL (7-18); BUN/CREATININE RATIO 13.7 (10.0-20.0); CHLORIDE 102 MMOL/L (99-107); CREATININE 1.02 MG/DL (0.40-0.90); GLUCOSE 99 MG/DL (70-104); POTASSIUM 4.4 MMOL/L (3.5-5.1); SODIUM 138 MMOL/L (135-145)
[2024-06-10 15:46] LABS: ALANINE AMINOTRANSFERASE 27 U/L (12-78); ALBUMIN 3.3 G/DL (3.4-5.0); ALKALINE PHOSPHATASE 59 IU/L (46-116); ASPARTATE AMINO TRANSFERASE 29 U/L (10-37); BILIRUBIN,TOTAL 0.2 MG/DL (0.1-1.0); TOTAL PROTEIN 6.7 G/DL (6.4-8.2); eCRCL 67 ML/MIN; eGFR 56 ML/MIN
[2024-06-10] MEDS ORDERED: iohexol 300mg/ml 100ml inj. ONE (19:55)
[2024-06-11] VITALS (10 sets, daily range): BP systolic 96–113; BP diastolic 63–66; PULSE 60–85; RESP 16–20; TEMP 97.6–98.8; O2SAT 88–92
[2024-06-12] VITALS (7 sets, daily range): BP systolic 97–114; BP diastolic 55–77; PULSE 63–79; RESP 16–19; TEMP 97.4–98.7; O2SAT 91–92
[2024-06-13] VITALS (9 sets, daily range): BP systolic 117–118; BP diastolic 76; PULSE 71–90; RESP 14–18; TEMP 97.9–98; O2SAT 91–98
[2024-06-13] MEDS: lactobacillus rhamnosus 10,000 MMU CELLS/CAPSULE PO SCH (07:54)
[2024-06-13] MEDS: polyvinyl alcohol eye drops 15ML BOTTLE EACHEYE PRN (07:55)
[2024-06-14] VITALS (7 sets, daily range): BP systolic 95–134; BP diastolic 64–85; PULSE 63–95; RESP 12–18; TEMP 96.2–98.4; O2SAT 92–96
[2024-06-15 07:00] VITALS: RESP 16; O2SAT 93
[2024-06-15 08:00] VITALS: BP 97/66; PULSE 76; RESP 16; TEMP 98.2; O2SAT 93
[2024-06-15] MEDS: bisacodyl 10mg suppository rectal RC PRN (08:37)
[2024-06-15 19:00] VITALS: BP 105/58; PULSE 65; RESP 16; TEMP 98.6; O2SAT 94
[2024-06-15 20:56] VITALS: PULSE 75; RESP 18; O2SAT 90
[2024-06-15 21:03] VITALS: PULSE 70; RESP 16
[2024-06-16] VITALS (9 sets, daily range): BP systolic 93–105; BP diastolic 55–60; PULSE 60–76; RESP 14–71; TEMP 97.3–98.6; O2SAT 92–94
[2024-06-16] MEDS ORDERED: BAC10T PO (18:27)
[2024-06-16] MEDS ORDERED: MELO-102 PO (18:27)
[2024-06-16] MEDS ORDERED: DIVA-76 PO (18:27)
[2024-06-16] MEDS ORDERED: APIX5TAB3 PO (18:27)
[2024-06-16] MEDS ORDERED: FLUT16SP NS (18:27)
[2024-06-16] MEDS ORDERED: MIRT45TA83 PO (18:27)
[2024-06-16] MEDS ORDERED: PALI3TAB5 PO (18:27)
[2024-06-16] MEDS ORDERED: COG1T PO (18:27)
[2024-06-16] MEDS ORDERED: TRAZ-251 PO (18:28)
[2024-06-16] MEDS ORDERED: QUET100T34 PO (18:33)
[2024-06-17 07:00] VITALS: BP 91/65; PULSE 65; RESP 20; TEMP 97.2; O2SAT 94
[2024-06-17] MEDS: baclofen 10mg tablet PO PRN (09:02)
[2024-06-17 09:43] VITALS: PULSE 66; PULSE 82; RESP 18; O2SAT 95
[2024-06-17] MEDS: clonazePAM 1mg tablet PO PRN (14:14)
[2024-06-17 19:00] VITALS: RESP 20; O2SAT 90
[2024-06-17 19:50] VITALS: PULSE 82; RESP 19; O2SAT 92
[2024-06-17 19:57] VITALS: PULSE 63; RESP 18
[2024-06-17 20:00] VITALS: BP 110/65; PULSE 72; RESP 20; TEMP 97.3; O2SAT 90
[2024-06-18] VITALS (7 sets, daily range): BP systolic 104–105; BP diastolic 61–69; PULSE 63–91; RESP 16–20; TEMP 97–98.8; O2SAT 89–93
[2024-06-19 07:00] VITALS: BP 105/74; PULSE 63; RESP 16; TEMP 97.7; O2SAT 95
[2024-06-19 08:40] VITALS: PULSE 88; RESP 20; O2SAT 91
[2024-06-19 09:05] VITALS: RESP 16
[2024-06-19] MEDS ORDERED: BUDE0.5A3 IH (09:48)
[2024-06-19] MEDS ORDERED: LEVA1.2544 INH (09:48)
[2024-06-19] MEDS ORDERED: PER5325T PO (11:59)
[2024-06-20] MEDS ORDERED: PER5325T PO (09:10)
== END 2024-06-19 11:07 | disposition home or self-care (01) | DRG 885 ==
LOC: ER 04:02 → ADULT MH 04-26 22:35
PROVIDERS: ADMIT Psychiatry & Neurology Psychiatry; ATTEND Psychiatry & Neurology Psychiatry
PROC: GZHZZZZ Group Psychotherapy (ICD-10-PCS; principal; 2024-04-27)
PROC: GZ51ZZZ Individual Psychotherapy, Behavioral (ICD-10-PCS; 2024-04-27)
DX: F25.1 Schizoaffective disorder, depressive type (principal); J44.89 Other specified chronic obstructive pulmonary disease; F23 Brief psychotic disorder; Z59.00 Homelessness unspecified; Z20.822 Contact with and (suspected) exposure to COVID-19; E03.9 Hypothyroidism, unspecified; G89.4 Chronic pain syndrome; G47.00 Insomnia, unspecified; K59.00 Constipation, unspecified; F41.9 Anxiety disorder, unspecified; F31.9 Bipolar disorder, unspecified; M54.9 Dorsalgia, unspecified; I25.10 Atherosclerotic heart disease of native coronary artery without angina pectoris; Z86.711 Personal history of pulmonary embolism; Z88.5 Allergy status to narcotic agent; Z88.8 Allergy status to other drugs, medicaments and biological substances; Z79.01 Long term (current) use of anticoagulants; Z79.899 Other long term (current) drug therapy; Z76.5 Malingerer [conscious simulation]; Z80.3 Family history of malignant neoplasm of breast
CPT/HCPCS: 36415; 74177; 76700; 80048; 80053; 80305; 80320; 81003; 81025; 84145; 84443; 85025; 87081; 87811; 90686; 94640; 94760; 99285; A6250; A6258; J2250; J7614; Q0163; Q0177; Q9967

== ENCOUNTER 2024-11-17 12:34 | Outpatient (CLI) | payer MEDICARE, MEDICAID ==
[~2024-11-17 12:34] MED LIST changes: -ADV50250 IH; +BAC10T PO; +BUDE0.5A3 IH; +CETI10TA19 PO; -CLON1TAB12 PO; +CLON1TAB94 PO; +COG1T PO; +DIVA-76 PO; -DIVA250T4 PO; +DOCU100C40 PO; -ESTR42.53 VG; +ESTRADIOL 0.01% VG; +FLUT12AE2 INH; -FLUT16SP35 BOTHNARES; +LEVA1.2544 INH; -LEVO112T5 PO; +LEVO112T52 PO; -LIDO700A47 TP; +MELO-102 PO; -MIRT-87 PO; +MIRT45TA83 PO; +PALI3TAB5 PO; -PALI9TAB PO; -PROP1DRO7 OP; -QUET-1 PO; -QUET25TA36 PO; -SALI45SP BU; -TRAM50TA2 PO; -TRAZ-256 PO
== END 2024-11-17 23:59 | disposition home or self-care (01) ==
LOC: RAD 12:34
PROVIDERS: ATTEND Nurse Practitioner Psychiatric/Mental Health
DX: R00.1 Bradycardia, unspecified (principal); F39 Unspecified mood [affective] disorder; Z79.899 Other long term (current) drug therapy
CPT/HCPCS: 93005

== ENCOUNTER 2025-02-22 16:07 | Emergency (ER) | payer MEDICARE, MEDICAID ==
[~2025-02-22] VITALS: Ht 170.2 cm; Wt 70.5 kg
[~2025-02-22 16:07] MED LIST changes: -BAC10T PO; +BACL-145 PO; +DIVA-134 PO; -DIVA-76 PO
--- NOTE | 2025-02-22 18:14 | Physician Documentation ---
History of Present Illness ~ Chief Complaint: Anxiety Stated Complaint: MEDICATION REACTION Time Seen by MD: 17:24 Primary Medical Doctor: Damon HOWELL This 59-year-old female presents to the ED with a complaint of anxiety secondary to an upcoming heart catheterization of the procedure. Does have a long history of psychiatric illness. Multiple psychiatric medications including bupropion, sertraline, Seroquel denies any SI or HI. States she has seen by [facility]. Day of Onset: Feb 22, 2025 Medication Reconciliation Allergies: Coded Allergies: asenapine (Verified Allergy, Unknown, "seizures", 06/23/24) codeine (Verified Allergy, Unknown, 06/23/24) haloperidol (Unverified Allergy, Unknown, "i go into a coma", 06/23/24) olanzapine (Unverified Allergy, Unknown, 06/23/24) risperidone (Verified Allergy, Unknown, 06/23/24) ziprasidone (Unverified Allergy, Unknown, 06/23/24) Scheduled Albuterol Sulfate (Ventolin Hfa), 2 PUFFS INH Q6H, (Reported) Apixaban (Eliquis), 1 TAB PO Q12H Benztropine Mesylate (Benztropine Mesylate), 1 MG PO BID Budesonide (Budesonide), 0.5 MG IH BID Cetirizine HCl (Cetirizine HCl), 1 TAB PO DAILY, (Reported) Divalproex Sodium DR* (Depakote DR*), 1 TAB PO BID Docusate Sodium (Docusate Sodium), 1 CAP PO DAILY, (Reported) Ferrous Sulfate (Ferrous Sulfate), 1 TAB PO DAILY, (Reported) Fluticasone Propionate (Fluticasone Propionate), 2 SPR NS DAILY Fluticasone/Salmeterol (Advair Hfa 45-21 Mcg Inhaler), 1 PUFFS INH Q12H, (Reported) Levothyroxine Sodium (Synthroid), 1 TAB PO DAILY, (Reported) Meloxicam (Meloxicam), 1 TAB PO DAILY Mirtazapine (Remeron), 1 TAB PO HS Montelukast Sodium (Montelukast Sodium), 1 TAB PO DAILY, (Reported) Paliperidone (Paliperidone ER), 6 MG PO HS Quetiapine Fumarate (Quetiapine Fumarate), 200 MG PO HS Trazodone HCl (Trazodone HCl), 200 MG PO HS [Estradiol 0.01% Cr], 1 GM VG MWF, (Reported) Scheduled PRN Baclofen (Baclofen), 10 MG PO BID PRN for muscle spasms Clonazepam (Clonazepam), 1 TAB PO BID PRN for for anxiety/agitation, (Reported) Levalbuterol Hcl (Levalbuterol Hcl), 1.25 MG INH Q4H PRN for SOB or wheezing Sennosides (Senna), 2 TAB PO DAILY PRN for constipation, (Reported) Past Medical History Past Medical History: Asthma, COPD, Anemia, B12 deficiency, Hypothyroidism, Chronic Back Pain, Anxiety, Bipolar, Depression, Psychosis Past Surgical History: tonsillectomy, other Other Past Surgical History: "spine nerve stimulating implant" Patient History: FH: CAD (coronary artery disease) FATHER MOTHER (mother committed suicide 3.5 years ago) FH: breast cancer MOTHER FH: breast cancer (Breast cancer in her mother) MOTHER FH: dementia (Lewy dementia, father) FH: suicide MOTHER (mother committed suicide 3-1/2 years ago) Other Past Family History: UNKNOWN Alcohol Use: None Drug Use: none Lives with: S/O Lives In: Home Review of Systems All Other Systems at this time: Reviewed and Negative ROS As stated above in the HPI, otherwise all systems are reviewed and negative. Physical Exam Vital Signs: Temperature: 97.6, Source: Temporal, Heart Rate: 63, Respiratory Rate: 14, BP: 114/71, Pulse Oximetry: 100, Weight: 70.450 Oxygen Flow Rate: 4.0 Physical Exam General: Alert, no apparent distress. Respiratory: Lungs clear, no respiratory distress. Extremities: Normal range of motion, no deformity. Neurologic: Oriented x4. Psychiatric: Anxious appearing Skin: Normal color, warm and dry. No edema, no ecchymosis. Progress Results/Orders Results/Orders Orders - GIULIA KIMBROUGH NP [place] Prov.Neuro Consult (02/22/25 18:28) Drug Screen, Urine (02/22/25 18:33) Urinalysis (02/22/25 18:38) Hcg, Ur Ql (02/22/25 18:38) Close Observation Level (02/22/25 18:38) Covid19 Binax Poc Result Entry (02/22/25 18:38) Completed Orders - GIULIA KIMBROUGH ANGLEDOZER OPERATOR Lorazepam Tablet (Ativan Tablet) (02/22/25 17:50) Diphenhydramine Inj (Benadryl Inj.) (02/22/25 18:30) Acetaminophen (02/22/25 18:33) Cbc/Diff (02/22/25 18:38) Ethanol (02/22/25 18:38) TSH (02/22/25 18:38) BMP (02/22/25 18:38) Medications Received in ER Medications (Trade) Dose Ordered Sig/Holley Route PRN Reason Start Time Stop Time Status Last Admin Dose Admin (Ativan tablet) 2 mg ONCE ONCE PO 02/22/25 17:50 02/22/25 17:51 DC 02/22/25 17:53 2 MG Vital Signs 02/22/25 02/22/25 02/22/25 16:21 18:46 20:34 Temp 97.6 98.6 Pulse 63 67 60 Resp 14 20 16 B/P (MAP) 114/71 139/79 (99) 110/69 Pulse Ox 100 96 99 O2 Flow Rate 4.0 4.0 Laboratory Tests Test 02/22/25 18:55 02/22/25 19:55 White Blood Count 8.2 Red Blood Count 4.49 Hemoglobin 14.5 Hematocrit 42.1 Mean Corpuscular Volume 93.9 Mean Corpuscular Hemoglobin 32.3 H Mean Corpuscular Hemoglobin Concent 34.4 Red Cell Distribution Width 12.9 Platelet Count 208 Mean Platelet Volume 10.7 H Neutrophils (%) (Auto) 71.1 Lymphocytes (%) (Auto) 22.3 Monocytes (%) (Auto) 5.5 Eosinophils (%) (Auto) 0.3 Basophils (%) (Auto) 0.8 Neutrophils # (Auto) 5.8 Lymphocytes # (Auto) 1.8 Monocytes # (Auto) 0.5 Eosinophils # (Auto) 0.0 Basophils # (Auto) 0.1 CBC Comment Sodium Level 135 Potassium Level 3.8 Chloride Level 101 Carbon Dioxide Level 22.5 L Anion Gap 12 Blood Urea Nitrogen 18 Creatinine 0.81 Estimated GFR/1.73 m2 73 BUN/Creatinine Ratio 22.2 H Glucose Level 102 Calcium Level 9.2 Albumin 4.4 Thyroid Stimulating Hormone (TSH) 3.58 Chemistry Comments Acetaminophen Level < 2.0 L Ethyl Alcohol Level < 10 SARS-CoV-2 Antigen (Rapid) Negative Medical Decision Making Differential Dx:Considerations: Include: Alcohol abuse, Anxiety, Bipolar di sorder, Conversion disorder, Depression, Encephaloathy, Homicidal, Panic disorder, Personality disorder, Schizophrenia, Substance abuse, Suicidal, Other Departure Disposition: 01 HOME / SELF CARE / HOMELESS Impression: Primary Impression: Panic disorder Additional Impression: Panic attack Condition: Improved Discharge Instructions: Emotional Crisis Referrals: NO PRIMARY CARE PROVIDER (PCP) Signature Scribe Signature: yesy Attestation: Scribed for Giulia Kimbrough Agricultural Specialist by Giulia Guzman NP . 02/22/25 23:23 GIULIA KIMBROUGH NP Feb 22, 2025 18:14
--- NOTE | 2025-02-22 18:33 | Physician Documentation ---
History of Present Illness ~ Chief Complaint: Anxiety Stated Complaint: MEDICATION REACTION Time Seen by MD: 17:24 Primary Medical Doctor: Damon HOWELL This 59-year-old female presents to the ED with a complaint of severe anxiety secondary to having a upcoming heart catheterization procedure. She states that she has a long history of anxiety takes the treat of medications including bupropion Seroquel and sertraline he is currently being followed by [facility]. Day of Onset: Feb 22, 2025 Medication Reconciliation Allergies: Coded Allergies: asenapine (Verified Allergy, Unknown, "seizures", 06/23/24) codeine (Verified Allergy, Unknown, 06/23/24) haloperidol (Unverified Allergy, Unknown, "i go into a coma", 06/23/24) olanzapine (Unverified Allergy, Unknown, 06/23/24) risperidone (Verified Allergy, Unknown, 06/23/24) ziprasidone (Unverified Allergy, Unknown, 06/23/24) Scheduled Albuterol Sulfate (Ventolin Hfa), 2 PUFFS INH Q6H, (Reported) Apixaban (Eliquis), 1 TAB PO Q12H Benztropine Mesylate (Benztropine Mesylate), 1 MG PO BID Budesonide (Budesonide), 0.5 MG IH BID Cetirizine HCl (Cetirizine HCl), 1 TAB PO DAILY, (Reported) Divalproex Sodium DR* (Depakote DR*), 1 TAB PO BID Docusate Sodium (Docusate Sodium), 1 CAP PO DAILY, (Reported) Ferrous Sulfate (Ferrous Sulfate), 1 TAB PO DAILY, (Reported) Fluticasone Propionate (Fluticasone Propionate), 2 SPR NS DAILY Fluticasone/Salmeterol (Advair Hfa 45-21 Mcg Inhaler), 1 PUFFS INH Q12H, (Reported) Levothyroxine Sodium (Synthroid), 1 TAB PO DAILY, (Reported) Meloxicam (Meloxicam), 1 TAB PO DAILY Mirtazapine (Remeron), 1 TAB PO HS Montelukast Sodium (Montelukast Sodium), 1 TAB PO DAILY, (Reported) Paliperidone (Paliperidone ER), 6 MG PO HS Quetiapine Fumarate (Quetiapine Fumarate), 200 MG PO HS Trazodone HCl (Trazodone HCl), 200 MG PO HS [Estradiol 0.01% Cr], 1 GM VG MWF, (Reported) Scheduled PRN Baclofen (Baclofen), 10 MG PO BID PRN for muscle spasms Clonazepam (Clonazepam), 1 TAB PO BID PRN for for anxiety/agitation, (Reported) Levalbuterol Hcl (Levalbuterol Hcl), 1.25 MG INH Q4H PRN for SOB or wheezing Sennosides (Senna), 2 TAB PO DAILY PRN for constipation, (Reported) Past Medical History Past Medical History: Asthma, COPD, Anemia, B12 deficiency, Hypothyroidism, Chronic Back Pain, Anxiety, Bipolar, Depression, Psychosis Past Surgical History: tonsillectomy, other Other Past Surgical History: "spine nerve stimulating implant" Patient History: FH: CAD (coronary artery disease) FATHER MOTHER (mother committed suicide 3.5 years ago) FH: breast cancer MOTHER FH: breast cancer (Breast cancer in her mother) MOTHER FH: dementia (Lewy dementia, father) FH: suicide MOTHER (mother committed suicide 3-1/2 years ago) Other Past Family History: UNKNOWN Alcohol Use: None Drug Use: none Lives with: S/O Lives In: Home Physical Exam Vital Signs: Temperature: 97.6, Source: Temporal, Heart Rate: 63, Respiratory Rate: 14, BP: 114/71, Pulse Oximetry: 100, Weight: 70.450 Oxygen Flow Rate: 4.0 Progress Results/Orders Results/Orders Orders - GIULIA MILLER NP [place] Prov.Neuro Consult (02/22/25 18:28) Drug Screen, Urine (02/22/25 18:33) Urinalysis (02/22/25 18:38) Hcg, Ur Ql (02/22/25 18:38) Close Observation Level (02/22/25 18:38) Covid19 Binax Poc Result Entry (02/22/25 18:38) Completed Orders - GIULIA MILLER HOT HEADER OPERATOR Lorazepam Tablet (Ativan Tablet) (02/22/25 17:50) Diphenhydramine Inj (Benadryl Inj.) (02/22/25 18:30) Acetaminophen (02/22/25 18:33) Cbc/Diff (02/22/25 18:38) Ethanol (02/22/25 18:38) TSH (02/22/25 18:38) BMP (02/22/25 18:38) Medications Received in ER Medications (Trade) Dose Ordered Sig/Holley Route PRN Reason Start Time Stop Time Status Last Admin Dose Admin (Ativan tablet) 2 mg ONCE ONCE PO 02/22/25 17:50 02/22/25 17:51 DC 02/22/25 17:53 2 MG Vital Signs 02/22/25 02/22/25 02/22/25 16:21 18:46 20:34 Temp 97.6 98.6 Pulse 63 67 60 Resp 14 20 16 B/P (MAP) 114/71 139/79 (99) 110/69 Pulse Ox 100 96 99 O2 Flow Rate 4.0 4.0 Laboratory Tests Test 02/22/25 18:55 02/22/25 19:55 White Blood Count 8.2 Red Blood Count 4.49 Hemoglobin 14.5 Hematocrit 42.1 Mean Corpuscular Volume 93.9 Mean Corpuscular Hemoglobin 32.3 H Mean Corpuscular Hemoglobin Concent 34.4 Red Cell Distribution Width 12.9 Platelet Count 208 Mean Platelet Volume 10.7 H Neutrophils (%) (Auto) 71.1 Lymphocytes (%) (Auto) 22.3 Monocytes (%) (Auto) 5.5 Eosinophils (%) (Auto) 0.3 Basophils (%) (Auto) 0.8 Neutrophils # (Auto) 5.8 Lymphocytes # (Auto) 1.8 Monocytes # (Auto) 0.5 Eosinophils # (Auto) 0.0 Basophils # (Auto) 0.1 CBC Comment Sodium Level 135 Potassium Level 3.8 Chloride Level 101 Carbon Dioxide Level 22.5 L Anion Gap 12 Blood Urea Nitrogen 18 Creatinine 0.81 Estimated GFR/1.73 m2 73 BUN/Creatinine Ratio 22.2 H Glucose Level 102 Calcium Level 9.2 Albumin 4.4 Thyroid Stimulating Hormone (TSH) 3.58 Chemistry Comments Acetaminophen Level < 2.0 L Ethyl Alcohol Level < 10 SARS-CoV-2 Antigen (Rapid) Negative Medical Decision Making Findings This patient had a dystonic like change in her status while in the ED. This was 15 minutes after receiving Ativan. Began to have a bluish purple tongue indicating central cyanosis however during that time she was somehow off of her 4 L of oxygen which she is normally on four COPD. He the have the dystonic like shaking which prompted me to order a blue abhishek Neurology consult. Dr. Orozco spoke to the neurologist and indicated to me that they recommended a CTA head and neck and MRI if the anxiety was treated in his she continued to have problems. Neurologist suspected that this was psychiatric in nature. After receiving 2 mg of Ativan patient fell asleep and has been asymptomatic since. Going to discharge the patient for outpatient therapy Differential Dx:Considerations: Include: Alcohol abuse, Anxiety, Bipolar disorder, Conversion disorder, Depression, Encephaloathy, Homicidal, Panic disorder, Personality disorder, Schizophrenia, Substance abuse, Suicidal, Other Departure Disposition: HOME / SELF CARE / HOMELESS Impression: Primary Impression: Anxiety Additional Impressions: Panic attack Panic disorder Condition: Improved Discharge Instructions: Emotional Crisis, Panic Attack Referrals: NO PRIMARY CARE PROVIDER (PCP) Signature Scribe Signature: t Attestation: Scribed for Giulia Miller Bead Flipper by Giulia Guzman NP . 02/22/25 23:24 GIULIA MILLER NP Feb 22, 2025 18:33
--- NOTE | 2025-02-22 18:55 | [facility] CONSULT REPORT ---
[facility] Procedure Note [facility] Procedure Note Consult [facility] Note # Demographics Consult Type: General Neurology Patient Location: Emergency Room First Name: NAYELI Last Name: ALEYDA Date of : 1965 Age: 59 Gender: Female Facility: [facility] Time of Initial Page (): 02/22/2025 18:41 Time of Return Call (): 02/22/2025 18:41 # HPI History: 59yof with MACRINA who p/w paranoia, anxiety, delusions, and abnormal movements of shivering. # Scores Time of exam and NIHSS (): 02/22/2025 18:43 Level of Consciousness 1a: [0] = Alert; keenly responsive LOC Questions 1b: [0] = Answers both questions correctly LOC Commands 1c: [0] = Performs both tasks correctly Best Gaze 2: [0] = Normal Visual 3: [0] = No visual loss Facial Palsy 4: [0] = Normal symmetrical movements Motor Arm Left 5a: [0] = No drift Motor Arm Right 5b: [0] = No drift Motor Leg Left 6a: [0] = No drift Motor Leg Right 6b: [0] = No drift Limb Ataxia 7: [0] = Absent Sensory 8: [0] = Normal Best Language 9: [1] = [id number] aphasia Dysarthria 10: [0] = Normal Extinction and Inattention 11: [0] = No abnormality NIHSS Total: 1 # Plan Labs: Full infectious and metabolic workup for AMS Imaging: (urgency: STAT): - CT Angiogram Head and CT Angiogram Neck AND call back with results if abnormal Imaging: (urgency: routine): - MRI Brain with AND without contrast Other: - If patient has any neurological deterioration please call me back immediately Additional Recommendations: Psych consult # Logistics Attestation of consult completion: The patient is located at: [facility]. Facility staff participated in the visit. I performed this telemedicine visit from my offsite office utilizing interactive 2 way audio and visual telecommunication technology. Total time spent in telemedicine encounter: I spent 27 minutes reviewing clinical data and/or imaging, obtaining history, examining the patient, c ommunicating with the onsite care team, and in preparation of this report. # Demographics First Name: NAYELI Last Name: ALEYDA Facility: [facility] Neuro Consult Order placed for: Yes TAMMI POLALRD MD Feb 22, 2025 18:55
[2025-02-22 19:14] LABS: MEAN PLATELET VOLUME 10.7 FL (7.4-10.4); RED CELL DISTRIBUTION WIDTH 12.9 % (11.5-14.5)
[2025-02-22 19:44] LABS: CREATININE 0.81 MG/DL (0.40-0.90); ETHANOL < 10 MG/DL (<10); TOTAL CARBON DIOXIDE 22.5 MMOL/L (24-32); eCRCL 74 ML/MIN; eGFR 73 ML/MIN
[2025-02-22 20:34] VITALS: BP 110/69; PULSE 60; RESP 16; TEMP 98.6; O2SAT 99
== END 2025-02-22 20:36 | disposition home or self-care (01) ==
LOC: ER 16:07
DX: F41.0 Panic disorder [episodic paroxysmal anxiety] (principal); E03.9 Hypothyroidism, unspecified; J44.89 Other specified chronic obstructive pulmonary disease; F31.9 Bipolar disorder, unspecified; Z88.5 Allergy status to narcotic agent; Z88.8 Allergy status to other drugs, medicaments and biological substances; Z90.89 Acquired absence of other organs; Z20.822 Contact with and (suspected) exposure to COVID-19
CPT/HCPCS: 36415; 80048; 80329; 84443; 85025; 87811; 99283; G0480; 80320